=== PATIENT | female | born 1960 | race Caucasian/White ===

== ENCOUNTER 2023-08-30 07:47 | Outpatient (OUT) | payer OTHER, SELFPAY ==
[2023-08-30 08:22] LABS: Anion Gap 13.1; BUN Creatinine Ratio 25.3; Calcium 8.9 mg/dL (8.5-10.1); Carbon Dioxide 27.9 mmol/L (21.0-32.0); Chloride 104 mmol/L (98-107); Estimated GFR (African America >60 (>=60); Estimated GFR (Non-African Ame 57 (>=60); Glucose 272 mg/dL (74-106); Sodium 141 mmol/L (136-145)
[2023-08-30 08:41] LABS: Estimated Average Glucose 177 mg/dL; Glycohemoglobin A1C 7.8 % (4.5-6.2)
== END 2023-08-30 07:48 | disposition home or self-care (01) ==
LOC: LAB 07:47
PROVIDERS: PCP Family Medicine; Visit Provider Family Medicine
DX: E11.65 Type 2 diabetes mellitus with hyperglycemia (principal); E55.9 Vitamin D deficiency, unspecified
CPT/HCPCS: 36415; 80048; 82306; 83036

== ENCOUNTER 2023-10-12 08:16 | Outpatient (OUT) | payer OTHER, SELFPAY ==
--- NOTE | 2023-10-12 09:20 | CA_ITS ---
Patient Name Site Name GEOVANI HEARD [facility] Account No Medical Record Number Age Sex Date Time [id number] [facility]:[id number] F 10/12/2023 08:31 At the Request Of [facility] ECHOCARDIOGRAM REPORT PROCEDURE: CA ECHO DOPPLER COMPLETE INDICATIONS: Bradycardia, hypertension, palpitations COMPARISON: None. DESCRIPTION: COMPLETE ECHOCARDIOGRAM Real-time transthoracic echocardiography with 2D, M-mode, spectral and color flow Doppler performed. QUALITY: Technical quality was good. 64 , 159#, BSA 1.77 m2 LEFT VENTRICLE: Normal chamber size. Mild concentric left ventricular hypertrophy. Normal systolic function. LV EF: Normal left ventricular ejection fraction, (>55%). DIASTOLIC: Normal diastolic function. ATRIAL SEPTUM: Visually appears intact. LEFT ATRIUM: Normal chamber size. RIGHT ATRIUM: Normal chamber size. RIGHT VENTRICLE: Normal chamber size. Normal right ventricular systolic function. TRICUSPID VALVE: Normal mobility and thickness. No stenosis with trivial regurgitation. Doppler studies reveal mildly (35-45) elevated right sided pressures. RVSP 35 mmHg MITRAL VALVE: Normal mobility and thickness. No evidence of mitral valve stenosis. There is no mitral annular calcification. Mild mitral regurgitation. AORTIC VALVE: Normal trileaflet appearance. No visible sclerosis. Normal leaflet mobility. No evidence of aortic valve stenosis. No aortic regurgitation. AORTIC ROOT: Normal diameter and appearance. PULMONIC VALVE: Normal thickness and mobility. No stenosis. Trivial regurgitation. PERICARDIUM: No evidence of pericardial effusion. IVC: Collapses with inspirations. IVC is normal in size. PLEURA: CONCLUSION: 1. Mild concentric left ventricular hypertrophy with normal systolic function. LVEF is 55 to 60%. 2. Normal right ventricular size and systolic function. 3. Normal diastolic function. 4. No significant valvular dysfunction. 5. Mildly elevated right-sided pressures. Adult Echocardiography Procedure Report Left Ventricle LVEDD (3.7 - 5.6 cm): 4.40 cm LVESD (2.2 - 4.0 cm): 2.99 cm LVIVS thickness (0.6 - 1.2 cm): 1.11 cm LVPW thickness (0.5 - 1.0 cm): 1.17 cm e': 0.10 m/s E - e': 8.57 LVOT Max Gradient: 1.59 mm[Hg] LVOT Area (cm2): 0.63 m/s Peak Velocity (LVOT): 0.63 m/s Mean Velocity (LVOT): 0.49 m/s LVOT Diameter 1.85 cm Left Atrium LA Volume Index (2D A2C): 36.91 ml/m2 Left Atrium Systolic Dimension: 4.07 cm Mitral Valve MV E to A Ratio: 1.16 Mitral Valve A-Wave Peak Velocity: 0.76 m/s Mitral Valve E-Wave Peak Velocity: 0.88 m/s Right Ventricle Aorta AO Root Diam: 3.05 cm Ascending Ao Diam: 2.56 cm Aortic Valve AoV Area (Peak Garret): 1.15 cm2, 1.15 cm2 AoV Area (VTI): 1.19 cm2, 1.19 cm2 Peak Velocity(Antegrade Flow): 1.48 m/s Peak Gradient(Antegrade Flow): 8.71 mm[Hg] Mean Velocity(Antegrade Flow): 1.03 m/s Mean Gradient(Antegrade Flow): 4.80 mm[Hg] Velocity Time Integral: 43.32 cm Tricuspid Valve Peak Velocity (Regurgitant Flow): 2.82 m/s Pulmonic Valve Peak Velocity: 0.93 m/s Peak Gradient: 3.09 mm[Hg], 3.90 mm[Hg] Right Atrium Right Atrium Systolic Pressure: 28.69 ml, 28.69 ml Dictated by: Brian Durham M.D. on 10/12/2023 at 20:16 Approved by: Brian Durham M.D. on 10/12/2023 at 20:19
--- NOTE | 2023-10-15 | PCN_ITS ---
CARDIAC STRESS TEST Requesting Physician: Procedure Date: 10/15/2023 INDICATION: Palpitations. Bradycardia. METHODS: After risks, benefits and alternatives were explained, written informed consent was obtained. The patient was brought to the Stress Lab is a resting and fasting state. She underwent a Jim protocol for exercise. She exercised for 7 minutes and 29 seconds, reaching stage 3 of the Jim protocol or 10.1 METS. Cardiolite was administered at peak exercise. She was transferred to the Nuclear Lab at the completion of stress testing for nuclear imaging. There were no complications. STRESS TEST INFORMATION: The patient exercised for 7 minutes and 29 seconds, reaching stage 3 of the Jim protocol or 10.1 METS. Resting heart rate was 40 beats per minute, increasing to a maximum of 123 beats per minute. Resting blood pressure was 148/78 with a maximum of 196/84. ELECTROCARDIOGRAPHY: Rest EKG: Sinus bradycardia, 49 beats per minute, abnormal resting EKG. During Exercise and Recovery: There are horizontal ST depressions seen in leads 2, 3, AVF, V4, V5 and V6, suggestive of ischemia. These returned to normal after completion of exercise. No significant arrhythmias were seen. FINAL IMPRESSIONS: 1. Ischemic EKG changes seen in the inferolateral leads, suggestive of ischemia. 2. Mcnamara treadmill score is 2.3; estimated one year mortality is 1-1.1%. Risk category is moderate risk. Angiography may be indicated. 3. Nuclear images are to be read, interpreted and reported in a separate dictation. [facility]
== END 2023-10-12 08:17 | disposition home or self-care (01) ==
LOC: CARD 08:16
PROVIDERS: PCP Family Medicine; Visit Provider Nurse Practitioner
DX: R00.1 Bradycardia, unspecified (principal); I10 Essential (primary) hypertension; E78.2 Mixed hyperlipidemia; R00.2 Palpitations
CPT/HCPCS: 93306

== ENCOUNTER 2023-10-12 08:18 | Outpatient (OUT) | payer OTHER, SELFPAY ==
--- NOTE | 2023-10-12 08:10 | NM_ITS ---
Patient Name: GEOVANI HEARD MR#: [id number] : 1960 Exam Date: 10/12/2023 Ordering Doctor: DR Sarah Orosco M.D. RADIOLOGY REPORT PROCEDURE: NM TJ PERF SPECT REST STR COMPARISON: None. INDICATIONS: CHEST PAIN TECHNIQUE: Exam Description: Stress/Rest one day protocol gated SPECT Rest Imagin.1 mCi Tc-99m Cardiolite IV on 10/12/2023 Stress Imaging 30.5 mCi Tc-99m Cardiolite IV on 10/12/2023 Exercise Protocol: Jim Heart Rate (bpm): Rest: 48 Max: 134 PMHR: 85 Blood Pressure: Rest: 140/78 Max: 196/84 Exercise Time: Minutes: 7 Seconds: 29 Stage Reached: Stage: 3 Mets 10.1 Symptoms: Rest and peak stress ECG findings were pending and the exercise portion of the study was pending per attending physician Dr. STEPHENS . For more details please see separate cardiac stress test report. FINDINGS: QUALITY OF STUDY: Excellent. PERFUSION DEFECT: None. LOCATION: N/A SIZE: N/A. SEVERITY: N/A. TYPE: N/A. WALL MOTION: Normal. LV SIZE: Normal. 73 mL. TID / TCD: None; 1.1 LVEF: Normal. Calculated EF 75%. SUMMARY: Myocardial perfusion imaging study is NORMAL. CONCLUSION: 1. No reversible ischemia 2. Pending exercise test results Dictated by: Bonilla Ritchie MD on 10/12/2023 at 12:35 Approved by: Bonilla Ritchie MD on 10/12/2023 at 12:38
== END 2023-10-12 08:19 | disposition home or self-care (01) ==
LOC: NM 08:18
PROVIDERS: PCP Family Medicine; Visit Provider Family Medicine
DX: R00.1 Bradycardia, unspecified (principal); I10 Essential (primary) hypertension; E78.2 Mixed hyperlipidemia; R00.2 Palpitations; R07.89 Other chest pain
CPT/HCPCS: 78452; 93017; 93306; A9500

== ENCOUNTER 2024-01-09 06:50 | Outpatient (OUT) | payer OTHER, SELFPAY ==
--- OUTSIDE RECORDS SUMMARY | 2024-01-09 06:53 | XMS_ITS | CCD ---
Author Organization [facility] Care Team Providers Care Rigger Chief Name Role Phone PHYSICIAN, DEFAULT Unavailable Unavailable PHYSICIAN, DEFAULT Unavailable Unavailable PHYSICIAN, DEFAULT Unavailable Unavailable PHYSICIAN, DEFAULT Unavailable Unavailable MD Sarah Jansen Attending Provider [phone] Sarah Jansen Unavailable Sarah Jansen Attending Unavailable Ana Luisa, Sarah Luque Admitting Unavailable NO FAMILY, PHYSICIAN Primary Care Unavailable JANSEN, DR SARAH Luque Primary Care Unavailable JANSEN, DR SARAH Luque Admitting Unavailable JANSEN, DR SARAH Luque Attending Unavailable JANSEN, DR SARAH Luque Consulting Unavailable JANSEN, DR SARAH Luque Primary Care Unavailable JANSEN, DR SARAH Luque Admitting Unavailable JANSEN, DR SARAH Luque Attending Unavailable JANSEN, DR SARAH Luque Consulting Unavailable JANSEN, DR SARAH Luque Primary Care Unavailable JANSEN, DR SARAH Luque Admitting Unavailable JANSEN, DR SARAH Luque Attending Unavailable JEWELL FARMER V Consulting Unavailable JANSEN, DR SARAH Luque Primary Care Unavailable JANSEN, DR SARAH Luque Admitting Unavailable JANSEN, DR SARAH Luque Attending Unavailable JANSEN, DR SARAH Luque Consulting Unavailable JANSEN, DR SARAH Luque Primary Care Unavailable FLAKITA, DR NIDHI Lewis Consulting Unavailable JANSEN, DR SARAH Luque Admitting Unavailable JANSEN, DR SARAH Luque Attending Unavailable JANSEN, DR SARAH Luque Consulting Unavailable Eliza Galan Unavailable [phone] JENNAPAT Attending Unavailable JENNA, PAT Attending Unavailable JENNA, PAT Attending Unavailable Allergies Allergy Classification Reported Allergen(s) Allergy Type Date of Onset Reaction(s) Facility (10 sources) levoFLOXacin Drug Allergy Unknown [facility] Other (7 sources) Penicillins (Antibiotic) Propensity to adverse reactions Unknown [facility] Other (11 sources) Sulfamethoxazole Drug Allergy 12-18-19 Unknown, [facility] (3 sources) Penicillins; Translations: [PENICILLINS] Drug allergy (disorder) 03-10-20 13 Hives [facility] (1 source) Sulfonamides (Antibiotic) Drug allergy (disorder) [facility] (8 sources) Penicillin Drug Allergy 06-20-20 13 Unknown [facility] Other (5 sources) Substance with penicillin structure and antibacterial mechanism of action (substance) Drug allergy Unknown [facility] Other (5 sources) patient allergy list reviewed by nurse or physicia Propensity to adverse reactions 12-09-19 14 Comment:Done [facility] Other (5 sources) Allergies Reconciled Propensity to adverse reactions Unknown [facility] Other (1 source) levoFLOXacin Drug Allergy 12-18-19 24 [facility] Medications Current Medications Medication Drug Class(es) Dates Sig (Normalized) Sig (Original) atorvastatin 10 mg oral tablet (20 sources) HMG-CoA Reductase Inhibitor Start: 12-17-2023 take 10 mg by mouth once daily Atorvastatin Active 10 MG PO Daily December 17, 2023 12:00am take 1 tablet by mouth every twe nty-four hours Contour Next Test - (8 sources) Contour Next Renea t - USE TO TEST ONCE A DAY for 90 days Active docusate sodium 100 mg oral capsule (10 sources) take 1 capsule by mouth every eight hours escitalopram 10 mg oral tablet (8 sources) Serotonin Reuptake Inhibitor Start: take 1 tablet by mouth once daily Escitalopram Oxalate (Lexapro) 10 mg tablet Active 10 MG PO Daily December 18, 2023 12:00am Start: 08-21-2023 take 1 tablet by dayanara th every twenty-four hours Escitalopram Oxalate 10 MG 1 tablet Orally Once a day for 30 day(s) Aug, Active fenofibrate 145 mg oral tablet (14 sources) Peroxisome Proliferator Receptor alpha Agonist Start: 12-17-2023 take 145 mg by mouth once daily Fenofibrate Nanocrystallized Active 145 MG PO Daily December 17, 2023 12:00am take 1 tablet by mouth once germaine y Fenofibrate 145 MG TAKE 1 TABLET BY MOUTH EVERY DAY for 90 Active glipiZIDE 2.5 mg oral tablet (11 sources) Sulfonylurea Start: 12-17-2023 take 2.5 mg by mouth once daily Glipizide Active 2.5 MG PO Daily December 17, 2023 12:00am take 1 tablet by mouth once germaine y glipiZIDE ER 2.5 MG TAKE 1 TABLET BY MOUTH EVERY DAY for 90 Active Hair Skin Nails (10 sources) losartan potassium 50 mg oral tablet (11 sources) Angiotensin 2 Receptor Noel Start: 12-17-2023 take 50 mg by mouth once daily Losartan Active 50 MG PO Daily December 17, 2023 12:00am take 1 tablet by dayanara th every twenty-four hours Losartan Potassium 50 MG 1 tablet Orally Once a day Active psyllium 400 mg oral capsule (10 sources) Metamucil 0.36 G M as directed Orally Active Metamucil 0.36 G M as directed Orally Active Vit D2 400IU (10 sources) take 1 tablet by dayanara th once daily Vit D2 400IU 1 tab 1000 u orally once daily Active Vit E-Vit C-Beta Carotene [phone] (10 sources) take 200-250 tablets by mouth once daily Vit E-Vit C-Beta Carotene [phone] 1 tablet Orally Once a day Active Completed/Discontinued Medications Medication Drug Class(es) Dates Sig (Normalized) Sig (Original) ferrous sulfate 325 mg oral tablet (3 sources) Start: 02-24-2019 take 1 tablet by mouth every twenty-four hours Ferrous Sulfate 325 (65 Fe) MG 1 tablet Orally Once a day for 30 day(s) Feb, Not-Taking Start: 02-24-2019 take 1 tablet by dayanara th once daily Ferrous Sulfate 325 (65 Fe) MG 1 tablet Orally Once a day for 30 day(s) Feb, Not-Taking FLUoxetine 20 mg oral capsule (3 sources) Serotonin Reuptake Inhibitor take 1 capsule by mouth every twenty-four hours FLUoxetine HCl 20 MG 1 capsule Orally Once a day Not-Taking nitrofurantoin, macrocrystals 25 mg / nitrofurantoin, monohydrate 75 mg oral capsule (3 sources) Nitrofuran Antibacterial take 1 capsule by mouth every twelve hours Macrobid 100 MG 1 capsule with food Orally every 12 hrs Not-Taking Vitamin D (Cholecalciferol) 400 UNIT (3 sources) take 1 capsule by mouth once daily Vitamin D (Cholecalciferol) 400 UNIT 1 capsules Orally Once a day Not-Taking Vitamin E 400 UNIT (3 sources) take 2 capsules by mouth once daily Vitamin E 400 UNIT 2 capsules orally Daily Not-Taking Problems Active Problems Problem Classification Problem Date Documented Date Episodic/Chronic Abdominal pain (20 sources) Pain in female pelvis; Translations: [Pelvic and perineal pain] Onset: 01-17-2016 Episodic Anxiety disorders (10 sources) Anxiety; Translations: [Anxiety disorder, unspecified] Chronic Calculus of urinary tract (20 sources) Kidney stone; Translations: [Calculus of kidney] Onset: 07-07-2022 Episodic Cardiac dysrhythmias (20 sources) Bradycardia; Translations: [Bradycardia, unspecified] Onset: 02-07-2023 Episodic Chronic obstructive pulmonary disease and bronchiectasis (8 sources) Bronchitis; Translations: [Bronchitis, not specified as acute or chronic] Episodic Deficiency and other anemia (20 sources) Iron deficiency anemia; Translations: [Iron deficiency anemia, unspecified] 12-17-2023 Episodic Deficiency and other anemia (1 source) Iron deficiency anemia secondary to inadequate dietary iron intake; Translations: [Other iron deficiency anemias] 12-17-2023 Episodic Diabetes mellitus with complications (20 sources) Hyperglycemia due to type 2 diabetes mellitus; Translations: [Type 2 diabetes mellitus with hyperglycemia] Onset: 07-12-2022 Chronic Diabetes mellitus without complication (8 sources) Type 2 diabetes mellitus without complication; Translations: [Diabetes mellitus without mention of complication, type II or unspecified type, not stated as uncontrolled] Onset: 10-12-2014 Chronic Disorders of lipid metabolism (20 sources) Mixed hyperlipidemia; Translations: [Mixed hyperlipidemia] Onset: 07-15-2015 Chronic Essential hypertension (20 sources) Essential hypertension; Translations: [Essential (primary) hypertension] Onset: 10-30-2014 Chronic Genitourinary symptoms and ill-defined conditions (8 sources) Dysuria; Translations: [Dysuria] Episodic Hepatitis (11 sources) Nonalcoholic steatohepatitis; Translations: [Nonalcoholic steatohepatitis (SAINI)] 12-17-2023 Chronic Malaise and fatigue (20 sources) Fatigue; Translations: [Other fatigue] Episodic Mood disorders (20 sources) Chronic depression; Translations: [Major depressive disorder, single episode, unspecified] 12-17-2023 Chronic Nonspecific chest pain (19 sources) Chest pain; Translations: [Other chest pain] Onset: 07-11-2018 Episodic Nutritional deficiencies (20 sources) Vitamin D deficiency; Translations: [Vitamin D deficiency, unspecified] Onset: 11-17-2015 Chronic Other circulatory disease (8 sources) Elevated blood-pressure reading without diagnosis of hypertension; Translations: [Elevated blood-pressure reading, without diagnosis of hypertension] Episodic Other connective tissue disease (18 sources) Pain in limb; Translations: [Pain in left forearm] Episodic Other liver diseases (10 sources) Steatosis of liver; Translations: [Fatty (change of) liver, not elsewhere classified] Chronic Other lower respiratory disease (2 sources) Other forms of dyspnea; Translations: [Other forms of dyspnea] Onset: 09-12-2023 Episodic Other nervous system disorders (10 sources) Metallic taste; Translations: [Other disturbances of smell and taste] Episodic Other nervous system disorders (8 sources) Sensory disorder of smell and/or taste; Translations: [Other disturbances of smell and taste] Episodic Other non-traumatic joint disorders (20 sources) Arthralgia of the pelvic region and thigh; Translations: [Pain in left hip] Onset: 07-14-2014 Episodic Other nutritional; endocrine; and metabolic disorders (18 sources) Body mass index 25-29 - overweight; Translations: [Body mass index (BMI) 29.0-29.9, adult] Episodic Other screening for suspected conditions (not mental disorders or infectious disease) (20 sources) Elevated liver enzymes level; Translations: [Other specified abnormal findings of blood chemistry] Onset: 09-01-2016 Episodic Other upper respiratory infections (20 sources) Acute pharyngitis; Translations: [Acute pharyngitis due to other specified organisms] Onset: 02-06-2019 Episodic Residual codes; unclassified (1 source) Family history of malignant neoplasm of digestive organs; Translations: [FAM HX MALIG NEOPLASM DIGESTIV ORGN] Onset: 01-04-2023 Episodic Residual codes; unclassified (1 source) Family history of malignant neoplasm of other organs or systems; Translations: [FAM HX MALIG NEOPLASM OTH ORGN/SYS] Onset: 01-04-2023 Episodic Spondylosis; intervertebral disc disorders; other back problems (9 sources) Low back pain; Translations: [Low back pain, unspecified] 12-17-2023 Episodic Unclassified (1 source) Encounter for screening for malignant neoplasm of cervix; Translations: [Encounter for screening for malignant neoplasm of cervix] Onset: 12-04-2022 Unclassified (8 sources) Exposure to acute respiratory syndrome coronavirus 2; Translations: [Contact with and (suspected) exposure to COVID-19] Past or Other Problems Problem Classification Problem Date Documented Da te Episodic/Chronic Acute bronchitis (8 sources) Acute bronchitis; Translations: [Acute bronchitis, unspecified] Onset: 12-03-2015 Episodic Deficiency and other anemia (1 source) Other iron deficiency anemias; Translations: [OTHER IRON DEFICIENCY ANEMIAS] Onset: 07-12-2022 Episodic Deficiency and other anemia (8 sources) Anemia; Translations: [Anemia, unspecified] Onset: 11-15-2018 Episodic Diabetes mellitus without complication (8 sources) Hyperglycemia; Translations: [Hyperglycemia, unspecified] Onset: 09-12-2014 Episodic Other female genital disorders (8 sources) Other specified conditions associated with female genital organs and menstrual cycle; Translations: [Oth cond assoc w female genital organs and menstrual cycle] Onset: 07-15-2015 Episodic Other gastrointestinal disorders (8 sources) Diarrhea; Translations: [Diarrhea] Onset: 01-17-2016 Episodic Residual codes; unclassified (8 sources) Family history of stroke; Translations: [Family history of stroke] Onset: 12-08-2013 Episodic Residual codes; unclassified (8 sources) Family history of diabetes mellitus; Translations: [Family history of diabetes mellitus] Onset: 12-08-2013 Episodic Residual codes; unclassified (8 sources) Family history of mental disorder; Translations: [Family history of psychiatric condition] Onset: 12-08-2013 Episodic Unclassified (8 sources) Urine finding; Translations: [Other nonspecific finding on examination of urine] Onset: 09-01-2016 Viral infection (1 source) COVID-19 Results Test Name Value Interpretation Reference Range Facility Office Visiton 10-31-2023 Follow-up visit [id number] Kasey Sanchez 1960 F Date Provider Department Center 10/31/2023 [facility] Family History Problem Relation Age of Onset Stroke Mother Hyperlipidemia Mother Aortic aneurysm Father Family Status - Relation Status Age at Mother Father Level of Service:42665 HI OFFICE/OUTPATIENT ESTABLISHED MOD MDM 30 MIN Normal [facility] Office Visiton 09-12-2023 Follow-up visit [id number] Kasey aSnchez 1960 F Date Provider Department Center 09/12/2023 [facility] Family History Problem Relation Age of Onset Stroke Mother Hyperlipidemia Mother Aortic aneurysm Father Family Status - Relation Status Age at Mother Father Level of Service:87803 HI OFFICE/OUTPATIENT ESTABLISHED MOD MDM 30 MIN Normal [facility] Office Visiton 02-07-2023 Follow-up visit [id number] Kasey Sanchez 1960 F Date Provider Department Center 02/07/2023 [facility] Family History Problem Relation Age of Onset Stroke Mother Hyperlipidemia Mother Aortic aneurysm Father Family Status - Relation Status Age at Mother Father Level of Service:81126 HI OFFICE/OUTPATIENT ESTABLISHED LOW MDM 20-29 MIN Reason for Visit and Comments: Hyperlipidemia [182] SVT [Other] Normal [facility] MG MAMM SCREEN 3D TITI CADon 12-29-2022 MG MAMM SCREEN 3D TITI CAD Patient: KASEY SANCHEZ Exam Date: 12/29/2022 : 1960 Gender:F Ordering : DR SARAH JANSEN M.D. Admission #: [id number] Family : Order #: [id number] CLICK HERE TO VIEW EXAM RADIOLOGY REPORT PROCEDURE: MAMMOGRAM SCREENING 3D BILATERAL CAD COMPARISON: MG MAMM SCREEN 3D TITI CAD, 12/10/2020. MG MAMM SCREEN 3D TITI CAD, 12/26/2021. INDICATIONS: Screening mammography Calculator Name NCI Breast Cancer Risk Assessment Tool 5 Year Breast Cancer Risk 2.10% Lifetime Breast Cancer Risk 9.40% Personal Breast Cancer No Personal Ovarian Cancer No Treatments None Family Cancers Mother with colon cancer at age 90; Aunt-maternal with esohagus cancer at age 86; Father with bone cancer at age 72; Uncle-paternal with bone cancer at age 80. LOCATION: [facility] BREAST COMPOSITION: Heterogeneously dense,which may obscure small masses. FINDINGS: DIAGNOSTIC CATEGORY 1--NEGATIVE. NO CHANGE FROM COMPARISON ASSESSMENT. Scattered benign-appearing nodules are present. Scattered benign-appearing calcifications are present. Scattered benign-appearing lymph nodes are present. RIGHT BREAST: No significant suspicious finding. LEFT BREAST: No significant suspicious finding. RECOMMENDATIONS: ROUTINE MAMMOGRAM AND CLINICAL EVALUATION IN 12 MONTHS. PLEASE NOTE: A NORMAL MAMMOGRAM DOES NOT EXCLUDE THE POSSIBILITY OF BREAST CANCER. A CLINICALLY SUSPICIOUS PALPABLE LUMP SHOULD BE BIOPSIED. Dictated by: Jewell Farmer MD on 01/01/2023 at 09:49 Approved by: Jewell Farmer MD on 01/01/2023 at 09:51 Normal [facility] CBC AUTO DIFFon 12-08-2022 BASO # 0.1 103/ul Normal 0.0-0.1 [facility] Comment on above: Performed By: #### C BC #### [facility] [address] [place] [address] Dr. Dony Munoz Basophils/100 WBC (Bld) 0.9 % Normal 0.2-2.0 [facility] Comment on above: Performed By: #### C BC #### [facility] [address] [place] [address] Dr. Dony Munoz EO # 0.1 103/ul Normal 0.0-0.7 [facility] Comment on above: Performed By: #### C BC #### [facility] [address] [place] [address] Dr. Dony Munoz Eosinophils/100 WBC (Bld) 1.9 % Normal 0.9-7.0 [facility] Comment on above: Performed By: #### C BC #### [facility] [address] [place] [address] Dr. Dony Munoz Erythrocyte distribution width (RBC) [Ratio] 13.0 % Normal 11.0-15.0 [facility] Comment on above: Performed By: #### C BC #### [facility] [address] [place] [address] Dr. Dony Munoz Hematocrit (Bld) [Volume fraction] 35.5 % Critically low 36.0-48.0 [facility] Comment on above: Performed By: #### C BC #### [facility] [address] [place] [address] Dr. Dony Munoz Hemoglobin (Bld) [Mass/Vol] 11.7 g/dL Critically low 12.0-16.0 [facility] Comment on above: Performed By: #### C BC #### [facility] [address] [address] [address] Dony Munoz IG # 0.04 10e3/ul Critically high 0.00-0.03 [facility] Comment on above: Performed By: #### C BC #### [facility] [address] [address] [address] Dony Munoz IG % 0.6 % Critically high 0.0-0.5 [facility] Comment on above: Performed By: #### C BC #### [facility] [address] [place] [address] Dr. Dony Munoz LYMPH # 1.8 103/ul Normal 1.2-3.8 [facility] Comment on above: Performed By: #### C BC #### [facility] [address] [place] [address] Dr. Dony Munoz Lymphocytes/100 WBC (Bld) 27.2 % Normal 20.5-60.0 [facility] Comment on above: Performed By: #### C BC #### [facility] [address] [place] [address] Dr. Dony Munoz MANUAL DIFF REQ NO Normal [facility] Comment on above: Performed By: #### C BC #### [facility] [address] [place] [address] Dr. Dony Munoz MCH (RBC) [Entitic mass] 29.5 pg Normal 26.7-34.0 [facility] Comment on above: Performed By: #### C BC #### [facility] [address] [place] [address] Dr. Dony Munoz MCHC (RBC) [Mass/Vol] 33.0 g/dL Normal 29.9-35.2 [facility] Comment on above: Performed By: #### C BC #### [facility] [address] [place] [address] Dr. Dony Munoz MCV (RBC) [Entitic vol] 89.6 fL Normal 81.0-99.0 [facility] Comment on above: Performed By: #### C BC #### [facility] [address] [address] [address] Dony Munoz MONO # 0.6 103/ul Normal 0.3-0.8 [facility] Comment on above: Performed By: #### C BC #### [facility] [address] [place] [address] Dr. Dony Munoz Monocytes/100 WBC (Bld) 8.3 % Normal 1.7-12.0 [facility] Comment on above: Performed By: #### C BC #### [facility] [address] [place] [address] Dr. Dony Munoz NEUT # 4.1 103/ul Normal 1.4-6.5 [facility] Comment on above: Performed By: #### C BC #### [facility] [address] [place] [address] Dr. Dony Munoz Neutrophils/100 WBC (Bld) 61.1 % Normal 43.0-75.0 [facility] Comment on above: Performed By: #### C BC #### [facility] [address] [place] [address] Dr. Dony Munoz Platelet mean volume (Bld) [Entitic vol] 9.9 fL Normal 9.5-13.5 [facility] Comment on above: Performed By: #### C BC #### [facility] [address] [place] [address] Dr. Dony Munoz PLT 248 103/ul Normal 150-450 [facility] Comment on above: Performed By: #### C BC #### [facility] [address] [place] [address] Dr. Dony Munoz RBC 3.96 106/ul Critically low 4.20-5.40 [facility] Comment on above: Performed By: #### C BC #### [facility] [address] [place] [address] Dr. Dony Munoz WBC 6.8 103/ul Normal 4.0-11.0 [facility] Comment on above: Performed By: #### C BC #### [facility] [address] [place] [address] Dr. Dony Munoz GLYCOHEMOGLOBIN A1Con 2022 ADA RECOMMENDATION SEE BELOW Normal [facility] Comment on above: Result Comment: ADA RECOMMENDED LIMIT 4.0 - 6.0 ADA THERAPEUTIC TARGET < 7.0 ACTION SUGGESTED > 7.0 Performed By: #### A 1C #### [facility] [address] [address] [address] Dony Munoz Glucose [Mass/Vol] 151 mg/dL Normal [facility] Comment on above: Performed By: #### A 1C #### [facility] [address] [address] [address] Dony Munoz HbA1c (Bld) [Mass fraction] 6.9 % Critically high 4.5-6.2 [facility] Comment on above: Performed By: #### A 1C #### [facility] [address] [place] [address] Dr. Dony Munoz LIPID PROFILEon 12-08-2022 CHOL-HDL RATIO NORM SEE BELOW Normal [facility] Comment on above: Result Comment: 3.3 - 4.4 LOW RISK 4.4 - 7.1 AVERAGE RISK 7.1 - 11.0 MODERATE RISK >11.0 HIGH RISK Performed By: #### C MP, LIPID #### [facility] [address] [place] [address] Dr. Dony Munoz Cholesterol [Mass/Vol] 172 mg/dL Normal <=200 [facility] Comment on above: Performed By: #### C MP, LIPID #### [facility] [address] [place] [address] Dr. Dony Munoz Cholesterol in HDL [Mass/Vol] 47 mg/dL Normal 40-60 [facility] Comment on above: Performed By: #### C MP, LIPID #### [facility] [address] [address] [address] Dony Munoz Cholesterol in LDL [Mass/Vol] 104.2 mg/dL Normal [facility] Comment on above: Performed By: #### C MP, LIPID #### [facility] [address] [place] [address] Dr. Dony Munoz Cholesterol.total/Ch olesterol in HDL [Mass ratio] 3.7 {ratio} Normal [facility] Comment on above: Performed By: #### C MP, LIPID #### [facility] [address] [address] [address] Dony Munoz HDL NORMAL > or = 60 mg/dl - LO W CARDIOVASCULAR RISK <40 mg/dl - HIGH CARDIOVASCULAR RISK Normal [facility] Comment on above: Performed By: #### C MP, LIPID #### [facility] [address] [address] [address] Dony Munoz LDL CALC NORMAL SEE BELOW Normal [facility] Comment on above: Result Comment: <100 mg/dl OPTIMAL 100 - 129 mg/dl NEAR OR ABOVE OPTIMAL 130 - 159 mg/dl BORDERLINE HIGH 160 - 189 mg/dl HIGH >190 mg/dl VERY HIGH Performed By: #### C MP, LIPID #### [facility] [address] [address] [address] Dony Munoz Triglyceride [Mass/Vol] 104 mg/dL Normal <=150 [facility] Comment on above: Performed By: #### C MP, LIPID #### [facility] [address] [address] [address] Dony Munoz VLDL CALC 20.8 mg/dL Normal [facility] Comment on above: Performed By: #### C MP, LIPID #### [facility] [address] [address] [address] Dony Munoz PROF 14(COMP METB)on 023 Albumin [Mass/Vol] 4.1 g/dL Normal 3.4-5.0 [facility] Comment on above: Performed By: #### C MP, LIPID ####[facility] [id number] [id number]. Dony Munoz Albumin/Globulin [Mass ratio] 1.2 {ratio} Normal [facility] Comment on above: Performed By: #### C MP, LIPID ####[facility] [id number] [id number]. Dony Munoz ALP [Catalytic activity/Vol] 58 U/L Normal 46-116 [facility] Comment on above: Performed By: #### C MP, LIPID ####[facility] [id number] [id number]. Dony Munoz ALT [Catalytic activity/Vol] 125 U/L Critically high 14-59 [facility] Comment on above: Performed By: #### C MP, LIPID ####[facility] [id number] [id number]. Dony Munoz Anion gap [Moles/Vol] 12.3 mmol/L Normal [facility] Comment on above: Performed By: #### C MP, LIPID ####[facility] [id number] [id number]. Dony Munoz AST [Catalytic activity/Vol] 75 U/L Critically high 15-37 [facility] Comment on above: Performed By: #### C MP, LIPID ####[facility] [id number] [id number]. Dony Munoz Bilirubin [Mass/Vol] 0.5 mg/dL Normal 0.2-1.0 [facility] Comment on above: Performed By: #### C MP, LIPID ####[facility] [id number] [place] [address]Dr. Dony Munoz Calcium [Mass/Vol] 9.7 mg/dL Normal 8.5-10.1 [facility] Comment on above: Performed By: #### C MP, LIPID ####[facility] [address] [place] [address]Dr. Dony Munoz Chloride [Moles/Vol] 105 mmol/L Normal 98-107 [facility] Comment on above: Performed By: #### C MP, LIPID ####[facility] [address] [place] [id number]. Dony Munoz CO2 [Moles/Vol] 27.9 mmol/L Normal 21.0-32.0 [facility] Comment on above: Performed By: #### C MP, LIPID ####[facility] [address] [place] [id number]. Dony Munoz Creatinine [Mass/Vol] 0.93 mg/dL Normal 0.55-1.02 [facility] Comment on above: Performed By: #### C MP, LIPID ####[facility] [address] [place] [id number]. Dony Munoz EGFR-AF NAMIBIAN >60 Normal >=60 [facility] Comment on above: Performed By: #### C MP, LIPID ####[facility] [address] [place] [id number]. Dony Munoz EGFR-NON AF NAMIBIAN >60 Normal >=60 [facility] Comment on above: Performed By: #### C MP, LIPID ####[facility] [address] [place] [id number]. Dony Munoz Globulin (S) [Mass/Vol] 3.5 g/dL Normal [facility] Comment on above: Performed By: #### C MP, LIPID ####[facility] [address] [place] [address]Dr. Dony Munoz Glucose [Mass/Vol] 163 mg/dL Critically high 74-106 [facility] Comment on above: Performed By: #### C MP, LIPID ####[facility] [address] [place] [id number]. Dony Munoz Potassium [Moles/Vol] 4.2 mmol/L Normal 3.5-5.1 [facility] Comment on above: Performed By: #### C MP, LIPID ####[facility] [address] [place] [id number]. Dony Munoz Protein [Mass/Vol] 7.6 g/dL Normal 6.4-8.2 [facility] Comment on above: Performed By: #### C MP, LIPID ####[facility] [address] [place] [address]Dr. Dony Munoz Sodium [Moles/Vol] 141 mmol/L Normal 136-145 [facility] Comment on above: Performed By: #### C MP, LIPID ####[facility] [address] [place] [id number]. Dony Munoz Urea nitrogen [Mass/Vol] 23.0 mg/dL Critically high 7.0-18.0 [facility] Comment on above: Performed By: #### C MP, LIPID ####[facility] [address] [place], [place] [address]Ql. Dony Munoz Urea nitrogen/Creatinine [Mass ratio] 24.7 mg/mg Normal [facility] Comment on above: Performed By: #### C MP, LIPID ####[facility] [address] [place], [place] [address]Iu. Dony Munoz IGP,Aptima HPV,Age Gdlnon PAP HPV Aptima Negative Normal Negative [facility] Comment on above: Order Comment: SASHA CTION TECHNIQUE:: BROOM-ALONE GYNOCOLOGICAL BODY SITE:: CERVIX ENDOCERVIX Result Comment: This nucleic acid amplification test detects fourteen high- risk HPV types (16,18,31,33,35,39,45,51,52,56,58,59,66,68) without differentiation. PERFORMED BY: [address] [address] PATHOLOGIST [employer] KAMLA ARCE M.D. Performed By: #### P AP [id number] #### [facility] , Pap Image Guided Note Normal . [facility] Comment on above: Order Comment: SASHA CTION TECHNIQUE:: BROOM-ALONE GYNOCOLOGICAL BODY SITE:: CERVIX ENDOCERVIX Result Comment: TEST S RESULT FLAG UNITS REF RANGE LAB Clinician Provided Cytology Information Source.............Cervix;Endocervix No. of containers..01 ThinPrep Vial Age Christinao ELIANAOG Renea... FLAG LEGEND: L-Low Normal,H-High Normal,LL-Alert Low,HH-Alert High <-Panic Low,>-Panic High,A-Abnormal,AA-Critical Abnormal Performed at: 01 =G [facility] [id number] Laura Bull MD, Performed By: #### P AP [id number] #### [facility] , Result Comment: TEST S RESULT FLAG UNITS REF RANGE LAB DIAGNOSIS: 02 NEGATIVE FOR INTRAEPITHELIAL LESION OR MALIGNANCY. CELLULAR CHANGES ASSOCIATED WITH ATROPHY ARE PRESENT. Specimen adequacy: 02 Satisfactory for evaluation. Endocervical and/or squamous metaplastic cells (endocervical component) are present. Performed by: Ha Last, Disc Inspector ([facility]) . 02 Note: Note 02 The Pap smear is a screening test designed to aid in the detection of premalignant and malignant conditions of the uterine cervix. It is not a diagnostic procedure and should not be used as the sole means of detecting cervical cancer. Both false-positive and false-negative reports do occur. Test Methodology: Note 02 This liquid based ThinPrep(R) pap test was screened with the use of an image guided system. FLAG LEGEND: L-Low Normal,H-High Normal,LL-Alert Low,HH-Alert High <-Panic Low,>-Panic High,A-Abnormal,AA-Critical Abnormal Performed at: [address] [facility] [address] [phone] Laura Bull MD, VIT D 1 25 DIHYDROXYon 07-12 Calcitriol(1,25 di-OH Vit D) 29.6 pg/mL Normal 24.8-81.5 [facility] Comment on above: Performed By: #### V [id number] #### [facility] [address] [place] [address] Dr. Dony Munoz CBC AUTO DIFFon 07-10-2022 BASO # 0.1 103/ul Normal 0.0-0.1 [facility] Comment on above: Performed By: #### C BC #### [facility] [address] [place] [address] Dr. Dony Munoz Basophils/100 WBC (Bld) 0.7 % Normal 0.2-2.0 [facility] Comment on above: Performed By: #### C BC #### [facility] [address] [place] [address] Dr. Dony Munoz EO # 0.2 103/ul Normal 0.0-0.7 [facility] Comment on above: Performed By: #### C BC #### [facility] [address] [place] [address] Dr. Dony Munoz Eosinophils/100 WBC (Bld) 2.7 % Normal 0.9-7.0 [facility] Comment on above: Performed By: #### C BC #### [facility] [address] [place] [address] Dr. Dony Munoz Erythrocyte distribution width (RBC) [Ratio] 13.2 % Normal 11.0-15.0 [facility] Comment on above: Performed By: #### C BC #### [facility] [address] [place] [address] Dr. Dony Munoz Hematocrit (Bld) [Volume fraction] 32.3 % Critically low 36.0-48.0 [facility] Comment on above: Performed By: #### C BC #### [facility] [address] [place] [address] [address] Dony Munoz Hemoglobin (Bld) [Mass/Vol] 10.4 g/dL Critically low 12.0-16.0 [facility] Comment on above: Performed By: #### C BC #### [facility] [address] [place] [address] Dr. Dony Munoz IG # 0.06 10e3/ul Critically high 0.00-0.03 [facility] Comment on above: Performed By: #### C BC #### [facility] [address] [place] [address] Dr. Dony Munoz IG % 0.8 % Critically high 0.0-0.5 [facility] Comment on above: Performed By: #### C BC #### [facility] [address] [place] [address] Dr. Dony Munoz LYMPH # 1.6 103/ul Normal 1.2-3.8 [facility] Comment on above: Performed By: #### C BC #### [facility] [address] [place] [address] Dr. Dony Munoz Lymphocytes/100 WBC (Bld) 21.4 % Normal 20.5-60.0 [facility] Comment on above: Performed By: #### C BC #### [facility] [address] [place] [address] Dr. Dony Munoz MANUAL DIFF REQ NO Normal [facility] Comment on above: Performed By: #### C BC #### [facility] [address] [place] [address] Dr. Dony Munoz MCH (RBC) [Entitic mass] 29.5 pg Normal 26.7-34.0 [facility] Comment on above: Performed By: #### C BC #### [facility] [address] [place] [address] Dr. Dony Munoz MCHC (RBC) [Mass/Vol] 32.2 g/dL Normal 29.9-35.2 [facility] Comment on above: Performed By: #### C BC #### [facility] [address] [place] [address] [address] Dony Munoz MCV (RBC) [Entitic vol] 91.5 fL Normal 81.0-99.0 [facility] Comment on above: Performed By: #### C BC #### [facility] [address] [place] [address] [address] Dony Munoz MONO # 0.8 103/ul Normal 0.3-0.8 [facility] Comment on above: Performed By: #### C BC #### [facility] [address] [place] [address] [address] Dony Munoz Monocytes/100 WBC (Bld) 10.6 % Normal 1.7-12.0 [facility] Comment on above: Performed By: #### C BC #### [facility] [address] [place] [address] [address] Dony Munoz NEUT # 4.7 103/ul Normal 1.4-6.5 [facility] Comment on above: Performed By: #### C BC #### [facility] [address] [place] [address] [address] Dony Munoz Neutrophils/100 WBC (Bld) 63.8 % Normal 43.0-75.0 [facility] Comment on above: Performed By: #### C BC #### [facility] [address] [place] [address] [address] Dony Munoz Platelet mean volume (Bld) [Entitic vol] 10.0 fL Normal 9.5-13.5 [facility] Comment on above: Performed By: #### C BC #### [facility] [address] [place] [address] [address] Dony Munoz PLT 244 103/ul Normal 150-450 [facility] Comment on above: Performed By: #### C BC #### [facility] [address] [place] [address] [address] Dony Munoz RBC 3.53 106/ul Critically low 4.20-5.40 [facility] Comment on above: Performed By: #### C BC #### [facility] [address] [place] [address] [address] Dony Munoz WBC 7.3 103/ul Normal 4.0-11.0 [facility] Comment on above: Performed By: #### C BC #### [facility] [address] [place] [address] [address] Dony Munoz FERRITINon 07-10-2022 Ferritin [Mass/Vol] 178.0 ng/mL Normal 8.0-252.0 [facility] Comment on above: Performed By: #### F ERR #### [facility] [address] [place] [address] Dr. Dony Munoz GLYCOHEMOGLOBIN A1Con 2021 ADA RECOMMENDATION SEE BELOW Normal [facility] Comment on above: Result Comment: ADA RECOMMENDED LIMIT 4.0 - 6.0 ADA THERAPEUTIC TARGET < 7.0 ACTION SUGGESTED > 7.0 Performed By: #### A 1C #### [facility] [address] [place] [address] Dr. Dony Munoz Glucose [Mass/Vol] 140 mg/dL Normal [facility] Comment on above: Performed By: #### A 1C #### [facility] [address] [place] [address] Dr. Dony Munoz HbA1c (Bld) [Mass fraction] 6.5 % Critically high 4.5-6.2 [facility] Comment on above: Performed By: #### A 1C #### [facility] [address] [place] [address] Dr. Dony Munoz LIPID PROFILEon 07-10-2022 CHOL-HDL RATIO NORM SEE BELOW Normal [facility] Comment on above: Result Comment: 3.3 - 4.4 LOW RISK 4.4 - 7.1 AVERAGE RISK 7.1 - 11.0 MODERATE RISK >11.0 HIGH RISK Performed By: #### L IPID #### [facility] [address] [place] [address] Dr. Dony Munoz Cholesterol [Mass/Vol] 174 mg/dL Normal <=200 [facility] Comment on above: Performed By: #### L IPID #### [facility] [address] [place] [address] [address] Dony Munoz Cholesterol in HDL [Mass/Vol] 47 mg/dL Normal 40-60 [facility] Comment on above: Performed By: #### L IPID #### [facility] [address] [place] [address] [address] Dony Munoz Cholesterol in LDL [Mass/Vol] 104.4 mg/dL Normal [facility] Comment on above: Performed By: #### L IPID #### [facility] [address] [place] [address] [address] Dony Munoz Cholesterol.total/Ch olesterol in HDL [Mass ratio] 3.7 {ratio} Normal [facility] Comment on above: Performed By: #### L IPID #### [facility] [address] [place] [address] Dr. Dony Munoz HDL NORMAL > or = 60 mg/dl - LO W CARDIOVASCULAR RISK <40 mg/dl - HIGH CARDIOVASCULAR RISK Normal [facility] Comment on above: Performed By: #### L IPID #### [facility] [address] [place] [address] Dr. Dony Munoz LDL CALC NORMAL SEE BELOW Normal [facility] Comment on above: Result Comment: <100 mg/dl OPTIMAL 100 - 129 mg/dl NEAR OR ABOVE OPTIMAL 130 - 159 mg/dl BORDERLINE HIGH 160 - 189 mg/dl HIGH >190 mg/dl VERY HIGH Performed By: #### L IPID #### [facility] [address] [address] [address] Dony Munoz Triglyceride [Mass/Vol] 113 mg/dL Normal <=150 [facility] Comment on above: Performed By: #### L IPID #### [facility] [address] [place] [address] [address] Dony Munoz VLDL CALC 22.6 mg/dL Normal [facility] Comment on above: Performed By: #### L IPID #### [facility] [address] [address] [address] Dony Munoz XR KUB 1 VIEWon 07-10-2022 XR KUB 1 VIEW EXAMINATION: XR KUB 1 VIEW HISTORY: Kidney stone ; bilateral lower quadrant pain COMPARISON: No relevant comparison available. FINDINGS: KIDNEY/URETER - RIGHT: No visible renal or ureteral calcifications. KIDNEY/URETER - LEFT: 2 tiny stones versus bowel content projecting over left kidney. PELVIS: No visible ureteral stones. BOWEL: No abnormal dilation or deviation. BONES: No acute abnormality. OTHER: Negative. No abnormal gaseous collections. IMPRESSION: 1. Suspect left nephrolithiasis. 2. No visible ureteral stones. Electronically authenticated by: NIDHI BOGGS Date: 2022-07-10 07:01 Normal [facility] Vital Signs Date Time Vital Sign Value Performing Clinician Facility 12-18-2023 15:34-0400 Body height 162.[address] [facility] 12-18-2023 15:34-0400 Body mass index (BMI) [Ratio] 26.9 kg/m2 [facility] 12-18-2023 15:34-0400 Body weight 71.[address] [facility] 12-18-2023 15:34-0400 Diastolic blood pressure 69 mm[Hg] [facility] 12-18-2023 15:34-0400 Heart rate 50 /min [facility] 12-18-2023 15:34-0400 Systolic blood pressure 159 mm[Hg] [facility] 08-21-2023 15:45-0500 Body height 162.56 cm Sarah Jansen Other [facility] [facility] Other 08-21-2023 15:45-0500 Body mass index (BMI) [Ratio] 27.7 kg/m2 Sarah Jansen Other [facility] Other 08-21-2023 15:45-0500 Body weight 73.21 kg Sarah Jansen Other [facility] Other 08-21-2023 15:45-0500 Diastolic blood pressure 77 mm[Hg] Sarah Jansen Other [facility] Other 08-21-2023 15:45-0500 Systolic blood pressure 143 mm[Hg] Sarah Jansen Other [facility] Other 12-04-2022 16:30-0400 Body height 162.56 cm Sarah Jansen Other [employer] Other 12-04-2022 16:30-0400 Body mass index (BMI) [Ratio] 27.46 kg/m2 Sarah Jansen Other [employer] Other 12-04-2022 16:30-0400 Body weight 72.58 kg Sarah Jansen Other [employer] Other 12-04-2022 16:30-0400 Diastolic blood pressure 82 mm[Hg] Sarah Jansen Other [employer] Other 12-04-2022 16:30-0400 SaO2% (BldA) [Mass fraction] 98 % Sarah Jansen Other [employer] Other 12-04-2022 16:30-0400 Systolic blood pressure 120 mm[Hg] Sarah Jansen Other [employer] Other Encounters Encounter Date Encounter Type Care Provider Facility Start: 12-18-2023 End: 12-18-2023 ambulatory [facility] Work Phone: Start: 12-18-2023 End: 12-18-2023 Patient encounter procedure [facility] Physician [facility] Work Phone: Start: 11-30-2023 End: 11-30-2023 ambulatory Sarah Jansen Other [employer] Other Start: 11-30-2023 Telephone encounter Sarah Jansen [facility] Start: 11-30-2023 Non-patient / Non-visit [facility] Start: 10-31-2023 ambulatory [facility] Start: 09-24-2023 End: 09-24-2023 ambulatory Sarah Jansen Other [employer] Other Start: 09-24-2023 Telephone encounter Sarah Ana Luisa [facility] Start: 09-20-2023 Patient encounter procedure [facility] Group- Start: 09-19-2023 End: 09-19-2023 ambulatory Eliza Galan Other [employer] Other Start: 09-19-2023 Office outpatient vi sit 15 minutes Eliza Galan [facility] Start: 09-18-2023 End: 09-18-2023 ambulatory Sarah Jansen Other [employer] Other Start: 09-18-2023 Telephone encounter Sarah Ana Luisa [facility] Start: 09-13-2023 End: 09-13-2023 ambulatory Sarah Ana Luisa Other [employer] Other Start: 09-13-2023 Telephone encounter Sarah Ana Luisa [facility] Start: 09-12-2023 Telephone encounter Sarah Ana Luisa [facility] Start: 09-12-2023 End: 09-12-2023 ambulatory PAT [facility]ST [employer] Other Start: 08-21-2023 End: 08-21-2023 ambulatory Sarah Ana Luisa Other [employer] Other Start: 08-21-2023 Office outpatient vi sit 25 minutes Sarah Ana Luisa [facility] Start: 07-24-2023 End: 07-24-2023 ambulatory Sarah Ana Luisa Other [employer] Other Start: 07-24-2023 Telephone encounter Sarah Ana Luisa [facility] Start: 02-07-2023 End: 02-07-2023 ambulatory [facility] Start: 12-29-2022 End: 12-30-2022 ambulatory JEWELL FARMER Facility:[facility] Start: 12-10-2022 Encounter for genera l adult medical examination without abnormal findings DR ASRAH JANSEN [facility] Start: 12-08-2022 Telephone encounter Sarah Jansen [facility] Start: 12-08-2022 End: 12-09-[address] SARAH JANSEN [employer] Other Start: 12-08-2022 End: 12-09-2022 Encounter for general adult medical examination without abnormal findings DR SARAH JANSEN Facility:[facility] Start: 12-04-2022 End: 12-04-2022 Departed Referred MD Sarah Jansen Work Phone: [facility] [place] Work Phone: Start: 12-04-2022 End: 12-04-2022 ambulatory Sarah Jansen [facility] Work Phone: Start: 12-04-2022 Encounter for genera l adult medical examination without abnormal findings Sarah Jansen [facility] Start: 12-04-2022 Periodic preventive med est patient 40-64yrs Sarah Jansen [facility] Start: 07-10-2022 End: 07-11-[address] SARAH JANSEN Facility:[facility] Start: 07-07-2022 End: 07-08-[address] SARAH JANSEN Facility:[facility] Start: 07-07-[address] SARAH JANSEN Facil ity:[facility] Start: 12-15-2021 Adult health examination Sarah Jansen Other [employer] Other Start: 08-19-2018 End: 08-20-2018 Patient encounter procedure DEFAULT PHYSICIAN Facility:[facility] Start: 07-22-2018 End: 07-23-2018 Patient encounter procedure DEFAULT PHYSICIAN Facility:[facility] Procedures Date Procedure Procedure Detail Performing Clinician Start: 07-15-2015 Screening mammography Alan Jansen Other Start: 07-14-2014 History and physical examination, administrative Sarah Jansen Other Screening for malign ant neoplasm of breast Sarah Jansen Other Plan of Treatment Date Care Activity Detail Author Start: 12-04-[address] [facility] Comprehensive metabo lic 1999 panel - Serum or Plasma [facility] Human papilloma viru s 16+18+31+33+35+39+45+51+52+56+58 +59+66+68 DNA [Presence] in Cervix by Probe with signal amplification [facility] MG Breast - bilateral Screening [facility] Immunizations Immunization Date Immunization Notes Care Provider Fa cility 05-13-2021 COVID-19 Vaccine Pfi zer - Documentation Purposes Only Sarah Jansen Other [facility] Payers Date Payer Category Payer Self-pay 1960 Unknown [id number] [id number] [id number] 1960 Unknown [id number] 2.16.8 [id number] 1960 Unknown [id number] 2.16.84 [id number] 1960 Unknown [id number] 2.16.84 [id number] 1960 Unknown [id number] 2.16.84 [id number] 1960 Unknown [id number] 2.16.84 [id number] 1960 Unknown [id number] 2.16.84 [id number] 1959 Private Health Insurance EBM [id number] Unknown Unknown [id number] 2.16.8 [id number] Social History Date Type Detail Facility Tobacco smoking status NHIS Unknown if ever smoked [facility] Work Phone: Start: 1960 Sex Assigned At Female F [facility] Sex Assigned At Sex Assigned At Bir th [facility] [employer] Other Start: 10-09-2018 Tobacco smoking status NHIS Never smoked tobacco (finding) [facility] Medical Equipment Procedure Code Equipment Code Equipment Origin al Text Equipment Identifier Dates Microlet Lancets - Start: 01-01-2023 Blood Sugar Diagnostic (Blood Glucose Test) strip Start: 11-30-2023 Clinical Notes 10-30-2014 to 10-31-2023 Note Date & Type Note Facility 10-31-2023 Note Continue lipitor and tricor- pt to have repeat annual labs with PCP next month [facility] 10-31-2023 Note Hypertension is well controlled at home- this morning B/P was 106/60 Continue losartan [facility] 10-31-2023 Note Currently stable and asymptomati c [facility] 10-31-2023 Note Resolved [facility] 10-31-2023 Note [facility]TP CARDIOLOGY PROGR ESS NOTE HPI: aKsey Sanchez is a 62 y.o. female here for F/U and review of testing- Stress, Echo and event monitor Patient here for follow up event monitor, stress test, and echo. Still has intermittent chest discomfort . Still denies SOB, palpitations, and lightheadedness/syncope. States since taking 1/2 tab of lexapro her symptoms have resolved and states she feels back to myself. Review of Systems Constitutional: Positive for malaise/fatigue. Cardiovascular: Positive for chest pain and leg swelling (end of day, resolves by morning). Musculoskeletal: Positive for arthritis and joint swelling. Psychiatric/Behavioral: The patient is nervous/anxious. All other systems reviewed and are negative. Visit Vitals BP 140/72 (BP Location: Right arm, Patient Position: Sitting) Pulse 54 Ht 1.626 m (5' 4 ) Wt 74.4 kg (164 lb) SpO2 98% BMI 28.15 kg/m??? Smoking Status Never BSA 1.83 m??? Allergies Allergen Reactions Penicillins Medications: Current Outpatient Medications on File Prior to Visit Medication Sig Dispense Refill atorvastatin (Lipitor) 10 mg tablet TAKE 1 TABLET BY MOUTH EVERY DAY 90 tablet 3 cholecalciferol (Vitamin D3) 10 MCG (400 UNIT) tablet escitalopram (Lexapro) 10 mg tablet 10 mg 1 (one) time each day. fenofibrate (Tricor) 145 mg tablet Take 145 mg by mouth in the morning. glipiZIDE XL (Glucotrol XL) 2.5 mg 24 hr tablet Take 2.5 mg by mouth in the morning. losartan (Cozaar) 50 mg tablet Take 1 tablet (50 mg) by mouth in the morning. 90 tablet 3 No current facility-administered medications on file prior to visit. Physical Exam: Constitutional: Appearance: Normal appearance. Without apparent distress HENT: Head: Normocephalic and atraumatic. Nose: Nose normal. Mouth/Throat: Mouth: Mucous membranes are moist. Eyes: Extraocular Movements: Extraocular movements intact. Conjunctiva/sclera: Conjunctivae normal. Neck: Vascular: No JVD. Cardiovascular: Rate and Rhythm: Normal rate and regular rhythm. Pulses: Dorsalis pedis pulses are 3 on the right side and 3on the left side. Posterior tibial pulses are 3 on the right side and 3 on the left side. Heart sounds: Normal heart sounds, S1 normal and S2 normal. Pulmonary: Effort: Pulmonary effort is normal. Breath sounds: Normal breath sounds. Abdominal: General: Bowel sounds are normal. Palpations: Abdomen is soft. Musculoskeletal: General: Normal range of motion. Cervical back: Normal range of motion. Right lower leg: No edema. Left lower leg: No edema. Skin: General: Skin is warm and dry. Capillary Refill: Capillary refill takes less than 2 seconds. Neurological: General: No focal deficit present. Mental Status: She is alert and oriented to person, place, and time. Psychiatric: Mood and Affect: Mood normal. Behavior: Behavior normal. Thought Content: Thought content normal. Judgment: Judgment normal. Labs: 08/30/23 renal function normal K+ normal 12/08/22- CBC stable Renal function normal Liver function slightly elevated- PCP to monitor Cholesterol stable- LDL 107- in light of liver function will not increase statin Last lab values have been reviewed CV Testing: Event monitor reviewed with pt- Sinus rhythm, Sinus tachycardia, Sinus bradycardia 68%, noted PAC and PVC Treadmill stress test 10/15/2023- Ischemic EKG changes seen in inferolateral leads, suggestive of ischemia. Horizontal ST depressions seen in leads 2,3, aVF, V4, V5, V6. Mcnamara treadmill score is 2.3; Risk is moderate for CAD. No reversible ischemia Pending exercise test results. TTE- Mild cocentric LV hypertrophy with normal systolic function, LVEF 55-60% Normal RV size and systolic function Normal diastolic function No significant valvular dysfunction Mildly elevated Rt sided pressures EKG today- sinus bradycardia- HR 54 bpm, otherwise normal EKG. No previous echocardiogram noted Treadmill stress test 2018- Abnormal stress test: the changes are mostly in the inferior leads and the imaging part was normal. Since this was a treadmill stress test and the changes resolved within 1 minute of recovery, and she had no symptoms with exercise, the ECG changes are non specific and do not carry a clinical significance. Assessment/Plan: Stress test- + ischemia, normal perfusion. No concerning symptoms at this time and good functional capacity- continue statin and losartan- HTN management- D/W pt of red flag symptoms and when to call 911 or office for chest pain, SOB, fatigue, syncope or further concerns SCALES (dyspnea on exertion) Resolved Bradycardia Currently stable and asymptomatic Essential hypertension Hypertension is well controlled at home- this morning B/P was 106/60 Continue losartan Hyperlipidemia Continue lipitor and tricor- pt to have repeat annual labs with PCP next month RTC 3 months D/W pt to call office for lightheadedness/dizzine (more content not included)... [facility] 10-31-2023 Note Patient here for fol low up event monitor, stress test, and echo. Still has intermittent chest discomfort . Still denies SOB, palpitations, and lightheadedness/syncope. Review of Systems Constitutional: Positive for malaise/fatigue. Cardiovascular: Positive for chest pain and leg swelling (end of day, resolves by morning). Musculoskeletal: Positive for arthritis and joint swelling. Psychiatric/Behavioral: The patient is nervous/anxious. All other systems reviewed and are negative. [facility] 09-19-2023 Evaluation note Encounter Date Diagnosis Assessment Notes Sep, COVID-19 (ICD-10 - U07.1) Pt is COVID POSITIVE with an at home test. Advised recommended quarantine guidelines (quarantine 5 days from symptoms onset followed by 5 days of masking when around others). Discussed viral supportive care. Push fluids and rest. Tylenol as needed for body aches or fever. OTC cough and cold medications as directed. Discussed with pt paxlovid and side effects and she would like to think about this and will call if she would like to proceed. Advised viral syndromes typically last 5-7 days, follow up with PCP if symptoms persist or worsen. Immediate eval by ER for warning s/sx as discussed, including, SOB, difficulty breathing, chest pain. Sep, Other The patient was seen per scheduled virtual care visit in their home and my location (provider) is in the family practice office setting. The staff involved in visit was myself, Eliza Galan DNP, SEED SALES MANAGER, CRAWLER TRACTOR OPERATOR (provider) and Miriam Simpson, who was the roomer in asking patient pre-visit questions per virtual visit platform. Time spent with patient was approximately 10 minutes. [employer] Other 12-28-2023 Evaluation note* Encounter Date Diagnosis Assessment Notes Treatment Notes Treatment Clinical Notes Aug, Anxiety (ICD-10 - F41.9) [employer] Other [id number] NoteNoted SCALES with excessive exertion States she usually walks the steps- 2 flights at work and does not use elevator. [facility]12-27-2023 NoteCurrently stable. States when PCP started her on lexapro her fit bit noted heart rate of 43 bpm while sitting and watching TV- therefore she stopped lexapro until cardiology evaluation. Although she states she felt good on the lexapro denied any concerning cardiac symptoms. Recommended pt to resume lexapro as prescribed, 30 day event monitor placed to evaluate heart rate/rhytm. Pt instructed to call office for lightheadedness/dizziness, near syncope or syncope and any other concerns. RTC 6 weeks [facility]23 NotePCP has ordered treadmill stress test for ischemic evaluation. I ordered echocardiogram to assess cardiac function, wall motion and valvular function EKG today without acute concerns or ST-T wave changesUnMer[facility]12-27-2023 NoteHypertension is well controlled at home, white coat syndrome in office. Continue losartanUnMer[facility]12-27-2023 NoteLipid abnormalities are slightly elevated LDL at 104- continue heart healthy diet and lifestyle modifications. Continue lipitor 10 mg and tricor.[facility]12-27-2023 NoteUTP CARDIOLOGY PROGRESS NOTE HPI: Kasey Sanchez is a 62 y.o. female here for bradycardia, HTN, Hyperlipidemia and SVT Patient here for 6 mo follow up bradycardia, hypertension, and hyperlipidemia. Had labs 2 weeks ago. She was recently started on Lexapro, but she stopped it due to possible bradycardia, as she's already running low. When she stopped it, HR did come back up to the 50's. PCP ordered stress test, which she will have end of next week. She gets mid sternal chest pain/ pressure that is radiating to her back, worse with anxiety/stress, occasionally with exertion, denied nausea or sweating with CP. Says this is what she gets during panic attacks, but PCP wanted to check stress test. Denies lightheadedness/dizziness, syncope or near syncope. Reviewed b/p log from home and b/p at home is typically well controlled 120-126/70-80 and almost always < 130/80. Review of Systems Constitutional: Positive for malaise/fatigue. Cardiovascular: Positive for chest pain and leg swelling (end of day, resolves by morning). Musculoskeletal: Positive for arthritis and joint swelling. Psychiatric/Behavioral: The patient is nervous/anxious. All other systems reviewed and are negative. Visit Vitals BP 156/78 (BP Location: Left arm, Patient Position: Sitting) Pulse 53 Ht 1.626 m (5' 4 ) Wt 73.9 kg (163 lb) SpO2 99% BMI 27.98 kg/m??? Smoking Status Never BSA 1.83 m??? Allergies Allergen Reactions Penicillins Medications: Current Outpatient Medications on File Prior to Visit Medication Sig Dispense Refill atorvastatin (Lipitor) 10 mg tablet TAKE 1 TABLET BY MOUTH EVERY DAY 90 tablet 3 cholecalciferol (Vitamin D3) 10 MCG (400 UNIT) tablet fenofibrate (Tricor) 145 mg tablet Take 145 mg by mouth in the morning. glipiZIDE XL (Glucotrol XL) 2.5 mg 24 hr tablet Take 2.5 mg by mouth in the morning. losartan (Cozaar) 50 mg tablet Take 1 tablet (50 mg) by mouth in the morning. 90 tablet 3 No current facility-administered medications on file prior to visit. Physical Exam: Constitutional: Appearance: Normal appearance. Without apparent distress HENT: Head: Normocephalic and atraumatic. Nose: Nose normal. Mouth/Throat: Mouth: Mucous membranes are moist. Eyes: Extraocular Movements: Extraocular movements intact. Conjunctiva/sclera: Conjunctivae normal. Neck: Vascular: No JVD. Cardiovascular: Rate and Rhythm: Normal rate and regular rhythm. Pulses: Dorsalis pedis pulses are 3 on the right side and 3on the left side. Posterior tibial pulses are 3 on the right side and 3 on the left side. Heart sounds: Normal heart sounds, S1 normal and S2 normal. Pulmonary: Effort: Pulmonary effort is normal. Breath sounds: Normal breath sounds. Abdominal: General: Bowel sounds are normal. Palpations: Abdomen is soft. Musculoskeletal: General: Normal range of motion. Cervical back: Normal range of motion. Right lower leg: No edema. Left lower leg: No edema. Skin: General: Skin is warm and dry. Capillary Refill: Capillary refill takes less than 2 seconds. Neurological: General: No focal deficit present. Mental Status: She is alert and oriented to person, place, and time. Psychiatric: Mood and Affect: Mood normal. Behavior: Behavior normal. Thought Content: Thought content normal. Judgment: Judgment normal. Labs:08/30/23 renal function normal K+ normal 12/08/22- CBC stable Renal function normal Liver function slightly elevated- PCP to monitor Cholesterol stable- LDL 107- in light of liver function will not increase statin Last lab values have been reviewed CV Testing: EKG today- sinus bradycardia- HR 54 bpm, otherwise normal EKG. No previous echocardiogram noted Treadmill stress test 2017- Abnormal stress test: the changes are mostly in the inferior leads and the imaging part was normal. Since this was a treadmill stress test and the changes resolved within 1 minute of recovery, and she had no symptoms with exercise, the ECG changes are non specific and do not carry a clinical significance. No echocardiogram results found for the past 12 months Assessment/Plan: Hyperlipidemia Lipid abnormalities are slightly elevated LDL at 104- continue heart healthy diet and lifestyle modifications. Continue lipitor 10 mg and tricor. Essential hypertension Hypertension is well controlled at home, white coat syndrome in office. Continue losartan Chest pain PCP has ordered treadmill stress test for ischemic evaluation. I ordered echocardiogram to assess cardiac function, wall motion and valvular function EKG today without acute concerns or ST-T wave changes Bradycardia Currently stable. States when PCP started her on lexapro her fit bit noted heart rate of 43 bpm while sitting and watching TV- therefore she stopped lexapro until cardiology evaluation. Although she states she felt good on the lexapro denied any concerning cardiac symptom (more content not included)... [facility]12-27-2023 NotePatient here for 6 mo follow up bradycardia, hypertension, and hyperlipidemia. Had labs 2 weeks ago. She was recently started on Lexapro, but she stopped it due to possible bradycardia, as she's already running low. When she stopped it, HR did come back up to the 50's. PCP ordered stress test, which she will have end of next week. She gets chest pain radiating to her back. Says this is what she gets during panic attacks, but PCP wanted to check stress test. Denies palpitations and lightheadedness. Review of Systems Constitutional: Positive for malaise/fatigue. Cardiovascular: Positive for chest pain and leg swelling (end of day, resolves by morning). Musculoskeletal: Positive for arthritis and joint swelling. Psychiatric/Behavioral: The patient is nervous/anxious. All other systems reviewed and are negative.[facility] 08-21-2023 Evaluation note* Encounter Date Diagnosis Assessment Notes Treatment Notes Treatment Clinical Notes Aug, Other chest pain (ICD-10 - R07.89) Reviewed stress test from 2018. Similar symptoms at that time, but it has been 5 years. Pt agrees to repeat stress. Notes substernal chest pain that radiates to back at times. This occurs at rest. Due to female, diabetes, explained symptoms could be nonspecific for cardiac causes. Aug, Anxiety (ICD-10 - F41.9) Pt agrees to medication managment Aug, Controlled type 2 diabetes mellitus with hyperglycemia (ICD-10 - E11.65) Due for labs Diabetes well controlled. No hypoglycemia. Home blood sugars reviewed. Patterns stable. Patient is to be careful with diet and meal timing. Understands the importance of this. Doesn't skip meals. Compliant with medications. Patient is advised to have a snack before bedtime. Patient is to pay attention to body and symptoms, with any reoccurring patterns. Aug, Vitamin D deficiency (ICD-10 - E55.9) Due for labs [employer] Other 05-24-2023 NoteLipid abnormalities are stable, continue lipitor 10 mg and heart healthy diet. PCP to monitor liver functionUnMercy Hospital05-24-2023 Note Hypertension is at home is currently well controlled- typically 120-130/60-70 after review of her b/p log. Continue losartan Renal function normalUnMercy Hospital05-24-2023 NoteStable, no concerning symptomsUnMercy Hospital05-24-2023 NoteUTP CARDIOLOGY PROGRESS NOTE HPI: Kasey Sanchez is a 62 y.o. female here for HTN, Hyperlipidemia and SVT Currently denied chest pain, shortness of breath, orthopnea, paliptations, lightheadedness, dizziness or syncope Overall states she is feeling well, just stressed from work. Visit Vitals BP 162/80 (BP Location: Right arm, Patient Position: Sitting) Pulse 57 Ht 1.626 m (5' 4 ) Wt 73 kg (161 lb) SpO2 99% BMI 27.64 kg/m??? Smoking Status Never BSA 1.82 m??? Allergies Allergen Reactions Penicillins Medications: Current Outpatient Medications on File Prior to Visit Medication Sig Dispense Refill atorvastatin (Lipitor) 10 mg tablet atorvastatin 10 mg tablet TAKE 1 TABLET BY MOUTH EVERY DAY fenofibrate (Tricor) 145 mg tablet Take 145 mg by mouth in the morning. glipiZIDE XL (Glucotrol XL) 2.5 mg 24 hr tablet Take 2.5 mg by mouth in the morning. losartan (Cozaar) 50 mg tablet Take 1 tablet (50 mg) by mouth in the morning. 90 tablet 0 No current facility-administered medications on file prior to visit. Physical Exam: Constitutional: Appearance: Normal appearance. Without apparent distress HENT: Head: Normocephalic and atraumatic. Nose: Nose normal. Mouth/Throat: Mouth: Mucous membranes are moist. Eyes: Extraocular Movements: Extraocular movements intact. Conjunctiva/sclera: Conjunctivae normal. Neck: Vascular: No JVD. Cardiovascular: Rate and Rhythm: Normal rate and regular rhythm. Pulses: Dorsalis pedis pulses are 3 on the right side and 3on the left side. Posterior tibial pulses are 3 on the right side and 3 on the left side. Heart sounds: Normal heart sounds, S1 normal and S2 normal. Pulmonary: Effort: Pulmonary effort is normal. Breath sounds: Normal breath sounds. Abdominal: General: Bowel sounds are normal. Palpations: Abdomen is soft. Musculoskeletal: General: Normal range of motion. Cervical back: Normal range of motion. Right lower leg: No edema. Left lower leg: No edema. Skin: General: Skin is warm and dry. Capillary Refill: Capillary refill takes less than 2 seconds. Neurological: General: No focal deficit present. Mental Status: She is alert and oriented to person, place, and time. Psychiatric: Mood and Affect: Mood normal. Behavior: Behavior normal. Thought Content: Thought content normal. Judgment: Judgment normal. Labs: 12/08/22- CBC stable Renal function normal Liver function slightly elevated- PCP to monitor Cholesterol stable- LDL 107- in light of liver function will not increase statin Last lab values have been reviewed CV Testing: No echocardiogram results found for the past 12 months Assessment/Plan: Bradycardia Stable, no concerning symptoms Essential hypertension Hypertension is at home is currently well controlled- typically 120-130/60-70 after review of her b/p log. Continue losartan Renal function normal Hyperlipidemia Lipid abnormalities are stable, continue lipitor 10 mg and heart healthy diet. PCP to monitor liver function RTC 1 yearUnMercy Hospital05-24-2023 NotePatient here for 1 year follow up SVT, hyperlipidemia, and hypertension. Had routine labs in November 2022. Denies chest pain, SOB, and palpitations. Does get anxiety and suffers panic attacks, but has learned how to deal with them. Review of Systems Cardiovascular: Positive for leg swelling (end of day, resolves by morning). Musculoskeletal: Positive for arthritis and joint swelling. Psychiatric/Behavioral: The patient is nervous/anxious. All other systems reviewed and are negative.[facility] 12-04-2022 Evaluation note* Encounter Date Diagnosis Assessment Notes Treatment Notes Treatment Clinical Notes Nov, Wellness examination (ICD-10 - Z00.00) Due for labs. Discussed joint pain and fatigue. She is established with GI and has been anemic in the past. Will recheck labs. Nov, Screening mammogram for breast cancer (ICD-10 - Z12.31) Nov, Controlled type 2 diabetes mellitus with hyperglycemia (ICD-10 - E11.65) Pt presents w a list of BP and glucose 150-200. Will check a1C Nov, Fatigue (ICD-10 - R53.83) [employer] Other 02-13-2015 Evaluation note* Diagnosis Onset Date Resolution Status Essential (primary) hypertension October 30, 2014 acute Type 2 diabetes mellitus with hyperglycemia acute [facility] Work Phone: Evaluation noteNo assessment information available [facility] Work Phone: Evaluation noteNo InformationNortWerners[facility] [employer] Other History general Narrative - Reported* Type Description Date Medical History hyperlipidemia Medical History DM II Medical History HTN Medical History Anemia, iron deficiency, inadequ ate dietary intake Medical History Vitamin D deficiency Medical History Hyperlipidemia, mixed Medical History Controlled type 2 di abetes mellitus with hyperglycemia Medical History Nephrolith Medical History Fatigue Medical History Pain in female pelvis Medical History Metallic taste Medical History Hip pain, left Medical History Left forearm pain Medical History Bradycardia Medical History Chronic depression Medical History Essential hypertension Medical History LUMBAR PAIN WITH RADIATION DOWN LEFT LEG Surgical History umbilical hernia repair Surgical History lithotripsy Surgical History tonsillectomy Surgical History colonoscopy done [address] Pete kenyon Surgical History Gallbladder 08/07/2018 Hospitalization History SEE SURGICAL HX [facility] [employer] Other Summary Purpose Family History Relationship Condition Age at Onset Recorded Date/T toni father Unknown Advance Directives Advance Directive Response Recorded Date/ Time Advance Directives No December 07, 2 023 2:36pm Chief Complaint and Reason for Visit Chief Complaint Amb Documentation discussion medications with BS Reason for Visit Essential (primary) hypertension Type 2 diabetes mellitus with hyperglycemia Additional Source Comments INFORMATION SOURCE (unrecogn ized section and content) DATE CREATED AUTHOR 08/25/2018 [facility] DATE CREATED AUTHOR AUTHOR'S ORGANIZ ATION 12/19/2022 [facility] DATE CREATED AUTHOR AUTHOR'S ORGANIZ ATION 01/04/2023 [facility] DATE CREATED AUTHOR AUTHOR'S ORGANIZ ATION 11/05/2023 [facility] Care Teams (unrecognized sec tion and content) Team Status: Inactive Member Role Status Dates Sarah Jansen MD Attending Provider Active Team Status: Active Member Role Status Dates Sarah Jansen MD Primary Care Provider Active Team Status: Active Member Role Status Dates Provider Conversion Attending Provider Active St art: September 20, 2023 Team Status: Active Member Role Status Dates PHYSICIAN NO FAMILY Primary Care Provider Active Start: November 30, 2023 LAKESHIA Harper Attending Provider Active Start : November 30, 2023 Team Status: Inactive Member Role Status Dates Sarah Jansen MD Primary Care Provide r, Attending Provider Active Start: December 18, 2023 End: December 18, 2023 Goals (unrecognized section and content) Goals may be documented in a n alternate sectionNo InformationNo InformationNo InformationNo InformationNo InformationNo InformationNo InformationNo InformationNo InformationNo InformationGoals may be documented in an alternate section REASON FOR VISIT (unrecogniz ed section and content) PAP/ WELLNESSlabsrefillCheck UpupdateRefillcovidcovid +messageNo Information FOR RECORDS PERTAINING TO PATIENTS WHO ARE OR HAVE BEEN ENROLLED IN A CHEMICAL DEPENDENCY/SUBSTANCEABUSE PROGRAM, SOME INFORMATION MAY BE OMITTED. This clinical summary was aggregated from multiple sources. Caution should be exercised in using it in the provision of clinical care. This summary normalizes information from multiple sources, and as a consequence, information in this document may materially change the coding, format and clinical context of patient data. In addition, data may be omitted in some cases. CLINICAL DECISIONS SHOULD BE BASED ON THE PRIMARY CLINICAL RECORDS. [employer] [facility]. provides no warranty or guarantee of the accuracy or completeness of information in this document.
--- NOTE | 2024-01-09 06:56 | MM_ITS ---
Patient Name: GEOVANI HEARD MR#: [id number] : 1960 Exam Date: 01/09/2024 Ordering Doctor: DR Sarah Orosco M.D. RADIOLOGY REPORT PROCEDURE: MM TOMOSYNTHESIS SCREENING BI COMPARISON: MG MAMM SCREEN 3D TITI CAD, 12/29/2022. MG MAMM SCREEN 3D TITI CAD, 12/26/2021. MG MAMM SCREEN 3D TITI CAD, 12/10/2020. MG MAMM TITI SCRN W CAD DIG, 02/06/2013. INDICATIONS: Screening Calculator Name NCI Breast Cancer Risk Assessment Tool 5 Year Breast Cancer Risk 2.20% Lifetime Breast Cancer Risk 9.10% Personal Breast Cancer No Personal Ovarian Cancer No Treatments None Family Cancers Mother with colon cancer at age 90; Aunt-maternal with esohagus cancer at age 86; Father with bone cancer at age 72; Uncle-paternal with bone cancer at age 80. LOCATION: [facility] BREAST COMPOSITION: The breasts are heterogeneously dense,which may obscure small masses. FINDINGS: DIAGNOSTIC CATEGORY 1--NEGATIVE. RIGHT BREAST: No significant suspicious finding. No significant change has occurred. LEFT BREAST: No significant suspicious finding. No significant change has occurred. RECOMMENDATIONS: ROUTINE MAMMOGRAM AND CLINICAL EVALUATION IN 12 MONTHS. PLEASE NOTE: A NORMAL MAMMOGRAM DOES NOT EXCLUDE THE POSSIBILITY OF BREAST CANCER. A CLINICALLY SUSPICIOUS PALPABLE LUMP SHOULD BE BIOPSIED. Dictated by: Sarabjit Espinal M.D. on 01/09/2024 at 13:47 Approved by: Sarabjit Espinal M.D. on 01/09/2024 at 13:52
[2024-01-09 07:46] LABS: Basophils Absolute Auto 0.1 10^3/uL (0.0-0.1); Basophils Percent Auto 1.6 % (0.2-2.0); Eosinophils Absolute Auto 0.1 10^3/uL (0.0-0.7); Eosinophils Percent Auto 2.1 % (0.9-7.0); Hemoglobin 10.7 g/dL (12.0-16.0); Immature Granulocytes Abs Auto 0.05 10^3/uL (0.00-0.03); Immature Granulocytes Pct Auto 0.8 % (0.0-0.5); Lymphocytes Absolute Auto 1.9 10^3/uL (1.2-3.8); Mean Corpuscular HGB Conc 31.5 g/dL (29.9-35.2); Mean Corpuscular Volume 92.1 fL (81.0-99.0); Mean Platelet Volume 10.5 fL (9.5-13.5); Monocytes Absolute Auto 0.6 10^3/uL (0.3-0.8); Monocytes Percent Auto 8.7 % (1.7-12.0); Neutrophils Absolute Auto 3.6 10^3/uL (1.4-6.5); Neutrophils Percent Auto 56.8 % (43.0-75.0); Platelet Count 227 10^3/uL (150-450); Red Blood Count 3.69 10^6/uL (4.20-5.40); Red Cell Distribution Width 14.5 % (11.0-15.0); White Blood Count 6.3 10^3/uL (4.0-11.0)
[2024-01-09 08:20] LABS: Estimated Average Glucose 148 mg/dL; Glycohemoglobin A1C 6.8 % (4.5-6.2)
[2024-01-09 08:25] LABS: Alanine Aminotransferase 131 U/L (14-59); Albumin Globulin Ratio 1.1; Albumin Level 3.8 g/dL (3.4-5.0); Alkaline Phosphatase 41 U/L (46-116); Anion Gap 13.2; Aspartate Amino Transferase 82 U/L (15-37); BUN Creatinine Ratio 27.6; Bilirubin Total 0.6 mg/dL (0.2-1.0); Calcium 9.2 mg/dL (8.5-10.1); Carbon Dioxide 28.6 mmol/L (21.0-32.0); Chloride 104 mmol/L (98-107); Chol HDL Ratio 4.6; Cholesterol 166 mg/dL (<=200); Estimated GFR (African America >60 (>=60); Estimated GFR (Non-African Ame 57 (>=60); Globulin 3.6 g/dL; Glucose 173 mg/dL (74-106); HDL Cholesterol 36 mg/dL (40-60); Potassium 3.8 mmol/L (3.5-5.1); Sodium 142 mmol/L (136-145); Total Protein 7.4 g/dL (6.4-8.2); Triglycerides 109 mg/dL (<=150); VLDL CHOLESTEROL 21.8 mg/dL
== END 2024-01-09 06:51 | disposition home or self-care (01) ==
LOC: MAMMO 06:50
PROVIDERS: PCP Family Medicine; Visit Provider Family Medicine
DX: Z12.31 Encounter for screening mammogram for malignant neoplasm of breast (principal); E11.65 Type 2 diabetes mellitus with hyperglycemia; I10 Essential (primary) hypertension; Z80.0 Family history of malignant neoplasm of digestive organs; Z80.8 Family history of malignant neoplasm of other organs or systems
CPT/HCPCS: 36415; 77063; 77067; 80053; 80061; 83036; 85025

== ENCOUNTER 2024-02-29 07:54 | Outpatient (OUT) | payer OTHER, SELFPAY ==
--- OUTSIDE RECORDS SUMMARY | 2024-02-29 07:56 | XMS_ITS | CCD ---
Author Organization [facility] Care Team Providers Care Haircutter Name Role Phone PHYSICIAN, DEFAULT Unavailable Unavailable PHYSICIAN, DEFAULT Unavailable Unavailable PHYSICIAN, DEFAULT Unavailable Unavailable PHYSICIAN, DEFAULT Unavailable Unavailable MD Sarah Jansen Attending Provider [phone] Sarah Jansen Unavailable INDERJIT, DR SARAH Luque Primary Care Unavailable JANSEN, [...] SARAH Luque Consulting Unavailable Eliza Galan Unavailable MD Sarah Jansen Primary Care Provider [phone] MD Sarah Jansen Attending Provider Sarah Jansen Attending Unavailable Sarah Jansen Primary Care Unavailable Sarah Jansen Admitting Unavailable PAT WEST Attending Unavailable JENNA, PAT Attending Unavailable JENNA, PAT Attending Unavailable ZI, EHAB Attending Unavailable Allergies Allergy Classification Reported Allergen(s) Allergy Type Date of Onset Reaction(s) Facility (10 sources) levoFLOXacin Drug Allergy Unknown [facility] Other (7 sources) Penicillins (Antibiotic) Propensity to adverse reactions Unknown [facility] Real Time Translation Other (13 sources) Sulfamethoxazole Drug Allergy 12-18-19 24 Unknown, [facility] (5 sources) Penicillins; Translations: [PENICILLINS] Drug allergy (disorder) 03-10-20 13 Hives [facility] Repository (1 source) Sulfonamides (Antibiotic) Drug allergy (disorder) [facility] Repository (8 sources) Penicillin Drug Allergy 06-20-20 13 Unknown [facility] Other (5 sources) Substance with penicillin structure and antibacterial mechanism of action (substance) Drug allergy Unknown [facility] Real Time Translation Other (5 sources) patient allergy list reviewed by nurse or physicia Propensity to adverse reactions 12-09-19 14 Comment:[facility] Real Time Translation Other (5 sources) Allergies Reconciled Propensity to adverse reactions Unknown [facility] Real Time Translation Other (4 sources) levoFLOXacin; Translations: [levofloxacin] Drug Allergy 12-18-19 24 [facility] (1 source) Penicillins Drug allergy (disorder) 01-18-20 24 [facility] Repository (1 source) Sulfamethoxazole Drug Allergy 01-18-20 24 [facility] Repository Medications Current Medications Medication Drug Class(es) Dates [...] ONCE A DAY for 90 days Active ergocalciferol 0.01 mg oral tablet (2 sources) Provitamin D2 Compound Start: 01-16-20 24 take 10 ug by mouth once daily Ergocalciferol (Vitamin D2) Active 10 MCG PO Daily January 16, 2024 12:00am escitalopram 10 mg oral tablet (10 sources) Serotonin Reuptake Inhibitor Start: 12-18-19 24 take 1 tablet by mouth once daily Escitalopram Oxalate (Lexapro) 10 mg tablet Active 10 MG PO Daily December 18, 2023 12:00am Start: 08-21-2023 take 1 tablet by dayanara th every twenty-four hours Escitalopram Oxalate 10 MG 1 tablet Orally Once a day for 30 day(s) Aug, Active fenofibrate 145 mg oral tablet (16 sources) Peroxisome Proliferator Receptor alpha Agonist Start: 12-17-2023 take 145 mg by mouth once daily Fenofibrate Nanocrystallized Active 145 MG PO Daily December 17, 2023 12:00am take 1 tablet by mouth once germaine y Fenofibrate 145 MG TAKE 1 TABLET BY MOUTH EVERY DAY for 90 Active glipiZIDE (15 sources) Sulfonylurea Start: 12-31-2023 take 1 tablet by mouth once daily Glipizide Active 0 .ROUTE .COMPLEX 90 December 31, 2023 11:11am TAKE 1 TABLET BY MOUTH EVERY DAY Start: 12-17-2023 End: 12-31-2023 take 2.5 mg by mouth once daily Glipizide Discontinued 2.5 MG PO Daily December 17, 2023 12:00am December 31, 2023 11:11am take 1 tablet by dayanara th once daily glipiZIDE ER 2.5 MG TAKE 1 TABLET BY MOUTH EVERY DAY for 90 Active Hair Skin Nails (10 sources) losartan potassium 50 mg oral tablet (13 sources) Angiotensin 2 Receptor Noel Start: 12-17-2023 [...] once daily Active Vit E-Vit C-Beta Carotene [phone] (10 sources) take 200-250 tablets by mouth once daily Vit E-Vit C-Beta Carotene [phone] 1 tablet Orally Once a day Active Completed/Discontinued Medications Medication Drug Class(es) Dates Sig (Normalized) Sig (Original) docusate sodium 100 mg oral capsule (12 sources) Start: 01-16-2024 End: 01-18-2024 take 1 capsule by mouth three times daily take 1 capsule by mouth every ei ght hours ferrous sulfate 325 mg oral tablet (3 sources) Start: 02-24-2019 take 1 tablet by dayanara th every twenty-four hours Ferrous Sulfate 325 (65 [...] perineal pain] Onset: 01-17-2016 Episodic Anxiety disorders (12 sources) Anxiety; Translations: [Anxiety disorder, unspecified] Chronic Calculus of urinary tract (20 sources) Kidney stone; Translations: [Calculus of kidney] Onset: 07-07-2022 Episodic Chronic obstructive pulmonary disease and bronchiectasis (8 sources) Bronchitis; Translations: [Bronchitis, not specified as acute or chronic] Episodic Deficiency and other anemia (20 sources) Iron deficiency anemia; Translations: [Iron deficiency anemia, unspecified] 12-17-2023 Episodic Deficiency and other anemia (3 sources) Iron deficiency anemia secondary to inadequate dietary [...] hypertension; Translations: [Essential (primary) hypertension] Onset: 10-30-2014 12-17-2023 Chronic Genitourinary symptoms and ill-defined conditions (8 sources) Dysuria; Translations: [Dysuria] Episodic Hepatitis (13 sources) Nonalcoholic steatohepatitis; Translations: [Nonalcoholic steatohepatitis (SAINI)] 12-17-2023 Chronic Malaise and fatigue (20 sources) Fatigue; Translations: [Other fatigue] Episodic Mood disorders (20 sources) Chronic depression; Translations: [Major depressive disorder, single episode, unspecified] 12-17-2023 Chronic Nutritional deficiencies (20 sources) Vitamin D deficiency; [...] of) liver, not elsewhere classified] Chronic Other nervous system disorders (10 sources) Metallic [...] neoplasm of digestive organs; Translations: [FAM HX ROBYN NEOPLASM DIGESTIV ORGN] Onset: 01-04-2023 Episodic Residual codes; unclassified (1 source) Family history of malignant neoplasm of other organs or systems; Translations: [FAM HX MALQUIQUE NEOPLASM OTH ORGN/SYS] Onset: 01-04-2023 Episodic Spondylosis; intervertebral disc disorders; other back problems (11 sources) Low back pain; Translations: [Low back pain, unspecified] 12-17-2023 Episodic Unclassified (8 sources) Exposure to acute respiratory syndrome coronavirus 2; Translations: [Contact with and (suspected) exposure to COVID-19] Past or Other Problems Problem Classification Problem Date Documented Da te Episodic/Chronic Acute bronchitis (8 sources) Acute bronchitis; Translations: [Acute bronchitis, unspecified] Onset: 12-03-2015 Episodic Cardiac dysrhythmias (20 sources) Bradycardia; Translations: [Bradycardia, unspecified] Onset: 02-07-2023 12-17-2023 Episodic Deficiency and other anemia (1 source) Other iron deficiency anemias; Translations: [OTHER IRON DEFICIENCY ANEMIAS] Onset: 07-12-2022 Episodic Deficiency and other anemia (8 sources) Anemia; Translations: [Anemia, unspecified] Onset: 11-15-2018 Episodic Diabetes mellitus without complication (8 sources) Hyperglycemia; Translations: [Hyperglycemia, unspecified] Onset: 09-12-2014 Episodic Nonspecific chest pain (19 sources) Chest pain; Translations: [Other chest pain] Onset: 07-11-2018 Episodic Other female genital disorders (8 sources) Other specified conditions associated with female genital organs and menstrual cycle; Translations: [Oth cond assoc w female genital organs and menstrual cycle] Onset: 07-15-2015 Episodic Other gastrointestinal disorders (8 sources) Diarrhea; Translations: [Diarrhea] Onset: 01-17-2016 Episodic Other lower respiratory disease (2 sources) Other forms of dyspnea; Translations: [Other forms of dyspnea] Onset: 09-12-2023 Episodic Residual codes; unclassified (8 sources) Family [...] Value Interpretation Reference Range Facility Office Visiton 01-30-2024 Follow-up visit [id number] Kasey Sanchez 1960 F Date Provider Department Center 01/30/2024 Emigdio-FEMI PINON [facility] Family History Problem Relation Age of Onset Stroke Mother Hyperlipidemia Mother Aortic aneurysm Father Family Status - Relation Status Age at Mother Father Level of Service:44301 [place] OFFICE/OUTPATIENT ESTABLISHED LOW MDM 20 MIN Normal [facility] IGP,Aptima HPV,Age Gdlnon PAP HPV Aptima Negative Normal Negative [facility] Comment on above: Result Comment: This nucleic acid amplification test detects fourteen high- risk HPV types (16,18,31,33,35,39,45,51,52,56,58,59,66,68) without differentiation. Performed at: =[facility] [id number] Airport Sales Agent: Laura Bull MD, Phone: [phone] Performed at: [facility] [id number] Airport Sales Agent: Laura Bull MD, Phone: [phone] PERFORMED BY: [address] [place] [address] PATHOLOGIST [employer] CROSSING GUARD KAMLA ARCE M.D. Performed By: #### P AP [id number] #### [facility] , Pap Image Guided Note Normal . [facility] Comment on above: Result Comment: TEST S RESULT FLAG UNITS REF RANGE LAB Clinician Provided Cytology Information No. of containers..01 ThinPrep Vial Age Shayla Meier... FLAG LEGEND: L-Low Normal,H-High Normal,LL-Alert Low,HH-Alert High <-Panic Low,>-Panic High,A-Abnormal,AA-Critical Abnormal Performed at: 01 =G [facility] [id number] Laura Bull MD, Performed By: #### P AP [id number] #### [facility] , Result Comment: TEST S RESULT FLAG UNITS REF RANGE LAB DIAGNOSIS: 02 NEGATIVE FOR INTRAEPITHELIAL LESION OR MALIGNANCY. THIS SPECIMEN WAS RESCREENED PART OF OUR FASHION DIRECTOR PROGRAM. Specimen adequacy: 02 Satisfactory for evaluation. Endocervical and/or squamous metaplastic cells (endocervical component) are present. Performed by: Leanne Henson, Dewer ([facility]) QC reviewed by: Michelle Hess, Dewer . 02 Note: Note 02 The Pap smear is a screening test designed to aid in the detection of premalignant and malignant conditions of the uterine cervix. It is not a diagnostic procedure and should not be used as the sole means of detecting cervical cancer. Both false-positive and false-negative reports do occur. Test Methodology: Note 02 The [employer]R) Case Technician was unable to read this specimen. Therefore a manual review was performed. FLAG LEGEND: L-Low Normal,H-High Normal,LL-Alert Low,HH-Alert High <-Panic Low,>-Panic High,A-Abnormal,AA-Critical Abnormal Performed at: [address] [id number] Laura Bull MD, HPV Genotype Reflex Note 02 Criteria not met, HPV Genotype not performed. Criteria not met, HPV Genotype not performed. Basophils Auto (Bld) [#/Vol] on 01-09-2024 Basophils (Bld) [#/Vol] 0.1 10 3/uL 0.0-0.1 [facility] Basophils/100 WBC Auto (Bld) on 01-09-2024 Basophils/100 WBC (Bld) 1.6 % 0.2-2.0 [facility] Cholesterol in LDL Calc [Mas s/Vol]on 01-09-2024 Cholesterol in LDL [Mass/Vol] 109.0 mg/dL [facility] Comment on above: <100 mg/dl [id number] 0-129 mg/dl NEAR OR ABOVE [id number] mg/dl BORDERLINE [id number] mg/dl HIGH>190 mg/dl VERY HIGH Cholesterol in VLDL Calc [Ma ss/Vol]on 01-09-2024 Cholesterol in VLDL [Mass/Vol] 21.8 mg/dL [facility] Eosinophils/100 WBC Auto (Bl d)on 01-09-2024 Eosinophils/100 WBC (Bld) 2.1 % 0.9-7.0 [facility] Erythrocyte distribution wid th Auto (RBC) [Ratio]on 01-09-2024 Erythrocyte distribution width (RBC) [Ratio] 14.5 % 11.0-15.0 [facility] Estimated glomerular filtrat ion rate (GFR) non- Americanon 01-09-2024 GFR/1.73 sq M.predicted among non-blacks MDRD (S/P/Bld) [Vol rate/Area] 57 mL/min/{1.73_m2} >=60 [facility] Globulin Calc (S) [Mass/Vol] on 01-09-2024 Globulin (S) [Mass/Vol] 3.6 g/dL [facility] Glucose mean value [Mass/vol ume] in Blood Estimated from glycated hemoglobinon 01-09-2024 Average glucose Estimated from glycated hemoglobin (Bld) [Mass/Vol] 148 mg/dL [facility] Hematocrit Auto (Bld) [Volum e fraction]on 01-09-2024 Hematocrit (Bld) [Volume fraction] 34.0 % 36.0-48.0 [facility] Hemoglobin [Mass/volume] in Bloodon 01-09-2024 Hemoglobin (Bld) [Mass/Vol] 10.7 g/dL 12.0-16.0 [facility] Laboratory - Chemistry and C hemistry - challengeon 01-09-2024 Albumin [Mass/Vol] 3.8 g/dL 3.4-5.0 [facility] ALP [Catalytic activity/Vol] 41 U/L 46-116 [facility] ALT [Catalytic activity/Vol] 131 U/L 14-59 [facility] AST [Catalytic activity/Vol] 82 U/L 15-37 [facility] Bilirubin [Mass/Vol] 0.6 mg/dL 0.2-1.0 [facility] Calcium [Mass/Vol] 9.2 mg/dL 8.5-10.1 [facility] Chloride [Moles/Vol] 104 mmol/L 98-107 [facility] Cholesterol [Mass/Vol] 166 mg/dL <=200 [facility] Cholesterol in HDL [Mass/Vol] 36 mg/dL 40-60 [facility] Comment on above: > or =60 mg/dl - LOW CARDIOVASCULAR RISK<40 mg/dl - HIGH CARDIOVASCULAR RISK CO2 [Moles/Vol] 28.6 mmol/L 21.0-32.0 [facility] Creatinine [Mass/Vol] 0.98 mg/dL 0.55-1.02 [facility] GFR/1.73 sq M.predicted MDRD (S/P/Bld) [Vol rate/Area] mL/min/{1.73_m2} >=60 [facility] Glucose [Mass/Vol] 173 mg/dL 74-106 [facility] Potassium [Moles/Vol] 3.8 mmol/L 3.5-5.1 [facility] Protein [Mass/Vol] 7.4 g/dL 6.4-8.2 [facility] Sodium [Moles/Vol] 142 mmol/L 136-145 [facility] Triglyceride [Mass/Vol] 109 mg/dL <=150 [facility] Urea nitrogen [Mass/Vol] 27.0 mg/dL 7.0-18.0 [facility] Urea nitrogen/Creatinine [Mass ratio] 27.6 mg/mg [facility] Laboratory - Hematology and Cell countson 01-09-2024 HbA1c (Bld) [Mass fraction] 6.8 % 4.5-6.2 [facility] Comment on above: ADA RECOMMENDED LIMI T 4.0 - 6.0ADA THERAPEUTIC TARGET < 7.0ACTION SUGGESTED> 7.0 Immature granulocytes/100 WBC (Bld) 0.8 % 0.0-0.5 [facility] Leukocytes [#/volume] correc shamar for nucleated erythrocytes in Blood by Automated counon 01-09-2024 WBC corrected for nucl RBC Auto (Bld) [#/Vol] 6.3 10 3/uL 4.0-11.0 [facility] Lymphocytes Auto (Bld) [#/Vo l]on 01-09-2024 Lymphocytes (Bld) [#/Vol] 1.9 10 3/uL 1.2-3.8 [facility] Lymphocytes/100 WBC Auto (Bl d)on 01-09-2024 Lymphocytes/100 WBC (Bld) 30.0 % 20.5-60.0 [facility] MCH Auto (RBC) [Entitic mass ]on 01-09-2024 MCH (RBC) [Entitic mass] 29.0 pg 26.7-34.0 [facility] MCHC Auto (RBC) [Mass/Vol]on 01-09-2024 MCHC (RBC) [Mass/Vol] 31.5 g/dL 29.9-35.2 [facility] MCV Auto (RBC) [Entitic vol] on 01-09-2024 MCV (RBC) [Entitic vol] 92.1 fL 81.0-99.0 [facility] Monocytes Auto (Bld) [#/Vol] on 01-09-2024 Monocytes (Bld) [#/Vol] 0.6 10 3/uL 0.3-0.8 [facility] Monocytes/100 WBC Auto (Bld) on 01-09-2024 Monocytes/100 WBC (Bld) 8.7 % 1.7-12.0 [facility] Neutrophils Auto (Bld) [#/Vo l]on 01-09-2024 Neutrophils (Bld) [#/Vol] 3.6 10 3/uL 1.4-6.5 [facility] Neutrophils/100 WBC Auto (Bl d)on 01-09-2024 Neutrophils/100 WBC (Bld) 56.8 % 43.0-75.0 [facility] No Panel Informationon 01-08 Eosinophils # (Auto) 0.1 10 3/uL 0.0-0.7 [facility] Immature Granulocyte # (Auto) 0.05 10 3/uL 0.00-0.03 [facility] Platelet mean volume Auto (B ld) [Entitic vol]on 01-09-2024 Platelet mean volume (Bld) [Entitic vol] 10.5 fL 9.5-13.5 [facility] Platelets Auto (Bld) [#/Vol] on 01-09-2024 Platelets (Bld) [#/Vol] 227 10 3/uL 150-450 [facility] RBC Auto (Bld) [#/Vol]on RBC (Bld) [#/Vol] 3.69 10 6/uL 4.20-5.40 [facility] Serum or plasma albumin/glob ulin mass ratioon 01-09-2024 Albumin/Globulin [Mass ratio] 1.1 {ratio} [facility] Serum or plasma anion gap de terminationon 01-09-2024 Anion gap [Moles/Vol] 13.2 mmol/L [facility] Serum or plasma total choles terol/high density lipoprotein (HDL) cholesterol mass cris 01-09-2024 Cholesterol.total/Ch olesterol in HDL [Mass ratio] 4.6 {ratio} [facility] Comment on above: 3.3 - 4.4 LOW RISK4. 4 - 7.1 AVERAGE RISK7.1 - 11.0 MODERATE RISK>11.0 HIGH RISK Office Visiton 10-31-2023 Follow-up visit [id number] Kasey Sanchez 1960 F Date Provider Department Center 10/31/2023 PAT BRIDGES Family History Problem Relation Age of Onset Stroke Mother Hyperlipidemia Mother Aortic aneurysm Father Family Status - Relation Status Age at Mother Father Level of Service:69119 [place] OFFICE/OUTPATIENT ESTABLISHED MOD MDM 30 MIN Normal [facility] Office Visiton 09-12-2023 Follow-up visit [id number] Kasey Sanchez 1960 F Date Provider Department Center 09/12/2023 PAT BRIDGES Family History Problem Relation Age of Onset Stroke Mother Hyperlipidemia Mother Aortic aneurysm Father Family Status - Relation Status Age at Mother Father Level of Service:90395 [place] OFFICE/OUTPATIENT ESTABLISHED MOD MDM 30 MIN Normal [facility] Office Visiton 02-07-2023 Follow-up visit [id number] Kasey Sanchez 1960 F Date Provider Department Center 02/07/2023 PAT BRIDGES Family History Problem Relation Age of Onset Stroke Mother Hyperlipidemia Mother Aortic aneurysm Father Family Status - Relation Status Age at Mother Father Level of Service:18457 [place] OFFICE/OUTPATIENT ESTABLISHED LOW MDM 20-29 MIN Reason for Visit and Comments: Hyperlipidemia [182] SVT [Other] Normal [facility] MG MAMM SCREEN 3D TITI CADon 12-29-2022 MG MAMM SCREEN 3D TITI CAD Patient: KASEY SANCHEZ Exam Date: 12/29/2022 : 1960 Gender:F Ordering : DR SARAH JANSEN M.D. Admission #: [id number] Family : Order #: [id number] CLICK HERE TO VIEW EXAM RADIOLOGY REPORT [...] bone cancer at age 80. LOCATION: [facility] BREAST COMPOSITION: Heterogeneously dense,which may obscure small [...] MD on 01/01/2023 at 09:51 Normal [facility] CBC AUTO DIFFon 12-08-2022 BASO # 0.1 103/ul Normal 0.0-0.1 [facility] Comment on above: Performed By: #### C BC #### [facility] [address] [address] [address] Dony Munoz Basophils/100 WBC (Bld) 0.9 % Normal 0.2-2.0 [facility] Comment on above: Performed By: #### C BC #### [facility] [address] [place], [place] [address] Dr. Dony Munoz EO # 0.1 103/ul Normal 0.0-0.7 [facility] Comment on above: Performed By: #### C BC #### [facility] [address] [place] [address] Dr. Dony Munoz Eosinophils/100 WBC (Bld) 1.9 % Normal 0.9-7.0 [facility] Comment on above: Performed By: #### C BC #### [facility] [address] [place] [address] Dr. Dony Munoz Erythrocyte distribution width (RBC) [Ratio] 13.0 % Normal 11.0-15.0 [facility] Comment on above: Performed By: #### C BC #### [facility] [address] [place] [address] Dr. Dony Munoz Hematocrit (Bld) [Volume fraction] 35.5 % Critically low 36.0-48.0 [facility] Comment on above: Performed By: #### C BC #### [facility] [address] [place] [address] Dr. Dony Munoz Hemoglobin (Bld) [Mass/Vol] 11.7 g/dL Critically low 12.0-16.0 [facility] Comment on above: Performed By: #### C BC #### [facility] [address] [place] [address] Dr. Dony Munoz IG # 0.04 10e3/ul Critically high 0.00-0.03 [facility] Comment on above: Performed By: #### C BC #### [facility] [address] [place] [address] Dr. Dony Munoz IG % 0.6 % Critically high 0.0-0.5 [facility] Comment on above: Performed By: #### C BC #### [facility] [address] [place] [address] Dr. Dony Munoz LYMPH # 1.8 103/ul Normal 1.2-3.8 [facility] Comment on above: Performed By: #### C BC #### [facility] [address] [place] [address] Dr. Dony Munoz Lymphocytes/100 WBC (Bld) 27.2 % Normal 20.5-60.0 [facility] Comment on above: Performed By: #### C BC #### [facility] [address] [place] [address] Dr. Dony Munoz MANUAL DIFF REQ NO Normal [facility] Comment on above: Performed By: #### C BC #### [facility] [address] [place] [address] Dr. Dony Munoz MCH (RBC) [Entitic mass] 29.5 pg Normal 26.7-34.0 [facility] Comment on above: Performed By: #### C BC #### [facility] [address] [place] [address] Dr. Dony Munoz MCHC (RBC) [Mass/Vol] 33.0 g/dL Normal 29.9-35.2 [facility] Comment on above: Performed By: #### C BC #### [facility] [address] [place] [address] Dr. Dony Munoz MCV (RBC) [Entitic vol] 89.6 fL Normal 81.0-99.0 [facility] Comment on above: Performed By: #### C BC #### [facility] [address] [place] [address] Dr. Dony Munoz MONO # 0.6 103/ul Normal 0.3-0.8 [facility] Comment on above: Performed By: #### C BC #### [facility] [address] [place] [address] Dr. Dony Munoz Monocytes/100 WBC (Bld) 8.3 % Normal 1.7-12.0 [facility] Comment on above: Performed By: #### C BC #### [facility] [address] [place] [address] Dr. Dony Munoz NEUT # 4.1 103/ul Normal 1.4-6.5 [facility] Comment on above: Performed By: #### C BC #### [facility] [address] [place] [address] Dr. Dony Munoz Neutrophils/100 WBC (Bld) 61.1 % Normal 43.0-75.0 [facility] Comment on above: Performed By: #### C BC #### [facility] [address] [address] [address] Dony Munoz Platelet mean volume (Bld) [Entitic vol] 9.9 fL Normal 9.5-13.5 [facility] Comment on above: Performed By: #### C BC #### [facility] [address] [address] [address] Dony Munoz PLT 248 103/ul Normal 150-450 [facility] Comment on above: Performed By: #### C BC #### [facility] [address] [address] [address] Dony Munoz RBC 3.96 106/ul Critically low 4.20-5.40 [facility] Comment on above: Performed By: #### C BC #### [facility] [address] [address] [address] Dony Munoz WBC 6.8 103/ul Normal 4.0-11.0 [facility] Comment on above: Performed By: #### C BC #### [facility] [address] [address] [address] Dony Munoz GLYCOHEMOGLOBIN A1Con 2022 ADA RECOMMENDATION SEE BELOW Normal [facility] Comment on above: Result Comment: ADA RECOMMENDED LIMIT 4.0 - 6.0 ADA THERAPEUTIC TARGET < 7.0 ACTION SUGGESTED > 7.0 Performed By: #### A 1C #### [facility] [address] [address] [address] Dony Munoz Glucose [Mass/Vol] 151 mg/dL Normal [facility] Comment on above: Performed By: #### A 1C #### [facility] [address] [address] [address] Dony Munoz HbA1c (Bld) [Mass fraction] 6.9 % Critically high 4.5-6.2 [facility] Comment on above: Performed By: #### A 1C #### [facility] [address] [address] [address] Dony Munoz LIPID PROFILEon 12-08-2022 CHOL-HDL RATIO NORM SEE BELOW Normal [facility] Comment on above: Result Comment: 3.3 - 4.4 LOW RISK 4.4 - 7.1 AVERAGE RISK 7.1 - 11.0 MODERATE RISK >11.0 HIGH RISK Performed By: #### C MP, LIPID #### [facility] [address] [address] [address] Dony Munoz Cholesterol [Mass/Vol] 172 mg/dL Normal <=200 [facility] Comment on above: Performed By: #### C MP, LIPID #### [facility] [address] [address] [address] Dony Munoz Cholesterol in HDL [Mass/Vol] 47 mg/dL Normal 40-60 [facility] Comment on above: Performed By: #### C MP, LIPID #### [facility] [address] [address] [address] Dony Munoz Cholesterol in LDL [Mass/Vol] 104.2 mg/dL Normal [facility] Comment on above: Performed By: #### C MP, LIPID #### [facility] [address] [address] [address] Dony Munoz Cholesterol.total/Ch olesterol in HDL [Mass ratio] 3.7 {ratio} Normal [facility] Comment on above: Performed By: #### C MP, LIPID #### [facility] [address] [address] [address] Dony Munoz HDL NORMAL > or = 60 mg/dl - LO W CARDIOVASCULAR RISK <40 mg/dl - HIGH CARDIOVASCULAR RISK Normal [facility] Comment on above: Performed By: #### C MP, LIPID #### [facility] [address] [address] [address] Dony Munoz LDL CALC NORMAL SEE BELOW Normal [facility] Comment on above: Result Comment: <100 mg/dl OPTIMAL 100 - 129 mg/dl NEAR OR ABOVE OPTIMAL 130 - 159 mg/dl BORDERLINE HIGH 160 - 189 mg/dl HIGH >190 mg/dl VERY HIGH Performed By: #### C MP, LIPID #### [facility] [address] [address] [address] Dony Munoz Triglyceride [Mass/Vol] 104 mg/dL Normal <=150 [facility] Comment on above: Performed By: #### C MP, LIPID #### [facility] [address] [address] [address] Dony Munoz VLDL CALC 20.8 mg/dL Normal [facility] Comment on above: Performed By: #### C MP, LIPID #### [facility] [address] [address] [address] Dony Munoz PROF 14(COMP METB)on 023 Albumin [Mass/Vol] 4.1 g/dL Normal 3.4-5.0 [facility] Comment on above: Performed By: #### C MP, LIPID ####[facility] [id number] [address]DrAnnabelle Munoz Albumin/Globulin [Mass ratio] 1.2 {ratio} Normal [facility] Comment on above: Performed By: #### C MP, LIPID ####[facility] [id number] [address]Dr. Dony Munoz ALP [Catalytic activity/Vol] 58 U/L Normal 46-116 [facility] Comment on above: Performed By: #### C MP, LIPID ####[facility] [address] [address]DrAnnabelle Munoz ALT [Catalytic activity/Vol] 125 U/L Critically high 14-59 [facility] Comment on above: Performed By: #### C MP, LIPID ####[facility] [id number] [id number] Munoz Anion gap [Moles/Vol] 12.3 mmol/L Normal [facility] Comment on above: Performed By: #### C MP, LIPID ####[facility] [address] [id number]. Dony Munoz AST [Catalytic activity/Vol] 75 U/L Critically high 15-37 [facility] Comment on above: Performed By: #### C MP, LIPID ####[facility] [address] [id number] Munoz Bilirubin [Mass/Vol] 0.5 mg/dL Normal 0.2-1.0 [facility] Comment on above: Performed By: #### C MP, LIPID ####[facility] [address] [address]Dr. Dony Munoz Calcium [Mass/Vol] 9.7 mg/dL Normal 8.5-10.1 [facility] Comment on above: Performed By: #### C MP, LIPID ####[facility] [address] [address]Dr. Dony Munoz Chloride [Moles/Vol] 105 mmol/L Normal 98-107 [facility] Comment on above: Performed By: #### C MP, LIPID ####[facility] [address] [address]Dr. Dony Munoz CO2 [Moles/Vol] 27.9 mmol/L Normal 21.0-32.0 [facility] Comment on above: Performed By: #### C MP, LIPID ####[facility] [id number] [place], [place] [address]Dr. Dony Munoz Creatinine [Mass/Vol] 0.93 mg/dL Normal 0.55-1.02 [facility] Comment on above: Performed By: #### C MP, LIPID ####[facility] [address] [address]Dr. Dony Munoz EGFR-AF NIUEAN >60 Normal >=60 [facility] Comment on above: Performed By: #### C MP, LIPID ####[facility] [address] [address]Dr. Dony Alexander EGFR-NON AF NIUEAN >60 Normal >=60 [facility] Comment on above: Performed By: #### C MP, LIPID ####[facility] [address] [address]Dr. Dony Munoz Globulin (S) [Mass/Vol] 3.5 g/dL Normal [facility] Comment on above: Performed By: #### C MP, LIPID ####[facility] [address] [address]Dr. Dony Munoz Glucose [Mass/Vol] 163 mg/dL Critically high 74-[address] [facility] Comment on above: Performed By: #### C MP, LIPID ####[facility] [address] [address]Dr. Dony Munoz Potassium [Moles/Vol] 4.2 mmol/L Normal 3.5-5.1 [facility] Comment on above: Performed By: #### C MP, LIPID ####[facility] [id number] [address]Dr. Dony Mnuoz Protein [Mass/Vol] 7.6 g/dL Normal 6.4-8.2 [facility] Comment on above: Performed By: #### C MP, LIPID ####[facility] [address] [address]Dr. Dony Munoz Sodium [Moles/Vol] 141 mmol/L Normal 136-145 [facility] Comment on above: Performed By: #### C MP, LIPID ####[facility] [address] [address]Dr. Dony Munoz Urea nitrogen [Mass/Vol] 23.0 mg/dL Critically high 7.0-18.0 [facility] Comment on above: Performed By: #### C MP, LIPID ####[facility] [address] [address]Dr. Dony Munoz Urea nitrogen/Creatinine [Mass ratio] 24.7 mg/mg Normal [facility] Comment on above: Performed By: #### C MP, LIPID ####[facility] [address] [address]Dr. Dony Munoz VIT D 1 25 DIHYDROXYon 07-12 Calcitriol(1,25 di-OH Vit D) 29.6 pg/mL Normal 24.8-81.5 [facility] Comment on above: Performed By: #### V [id number] #### [facility] [address] [address] [address] Dony Munoz CBC AUTO DIFFon 07-10-2022 BASO # 0.1 103/ul Normal 0.0-0.1 [facility] Comment on above: Performed By: #### C BC #### [facility] [address] [address] [address] Dony Munoz Basophils/100 WBC (Bld) 0.7 % Normal 0.2-2.0 [facility] Comment on above: Performed By: #### C BC #### [facility] [address] [address] [address] Dony Munoz EO # 0.2 103/ul Normal 0.0-0.7 [facility] Comment on above: Performed By: #### C BC #### [facility] [address] [address] [address] Dony Munoz Eosinophils/100 WBC (Bld) 2.7 % Normal 0.9-7.0 [facility] Comment on above: Performed By: #### C BC #### [facility] [address] [place] [address] Dr. Dony Munoz Erythrocyte distribution width (RBC) [Ratio] 13.2 % Normal 11.0-15.0 [facility] Comment on above: Performed By: #### C BC #### [facility] [address] [place] [address] Dr. Dony Munoz Hematocrit (Bld) [Volume fraction] 32.3 % Critically low 36.0-48.0 [facility] Comment on above: Performed By: #### C BC #### [facility] [address] [place] [address] Dr. Dony Munoz Hemoglobin (Bld) [Mass/Vol] 10.4 g/dL Critically low 12.0-16.0 [facility] Comment on above: Performed By: #### C BC #### [facility] [address] [place] [address] Dr. Dony Munoz IG # 0.06 10e3/ul Critically high 0.00-0.03 [facility] Comment on above: Performed By: #### C BC #### [facility] [address] [place] [address] Dr. Dony Munoz IG % 0.8 % Critically high 0.0-0.5 [facility] Comment on above: Performed By: #### C BC #### [facility] [address] [place] [address] Dr. Dony Munoz LYMPH # 1.6 103/ul Normal 1.2-3.8 [facility] Comment on above: Performed By: #### C BC #### [facility] [address] [place] [address] Dr. Dony Munoz Lymphocytes/100 WBC (Bld) 21.4 % Normal 20.5-60.0 [facility] Comment on above: Performed By: #### C BC #### [facility] [address] [place] [address] Dr. Dony Munoz MANUAL DIFF REQ NO Normal [facility] Comment on above: Performed By: #### C BC #### [facility] [address] [place] [address] Dr. Dony Munoz MCH (RBC) [Entitic mass] 29.5 pg Normal 26.7-34.0 [facility] Comment on above: Performed By: #### C BC #### [facility] [address] [place] [address] Dr. Dony Mnuoz MCHC (RBC) [Mass/Vol] 32.2 g/dL Normal 29.9-35.2 [facility] Comment on above: Performed By: #### C BC #### [facility] [address] [place] [address] Dr. Dony Munoz MCV (RBC) [Entitic vol] 91.5 fL Normal 81.0-99.0 [facility] Comment on above: Performed By: #### C BC #### [facility] [address] [place] [address] Dr. Dony Munoz MONO # 0.8 103/ul Normal 0.3-0.8 [facility] Comment on above: Performed By: #### C BC #### [facility] [address] [place] [address] Dr. Dony Munoz Monocytes/100 WBC (Bld) 10.6 % Normal 1.7-12.0 [facility] Comment on above: Performed By: #### C BC #### [facility] [address] [address] [address] Dony Munoz NEUT # 4.7 103/ul Normal 1.4-6.5 [facility] Comment on above: Performed By: #### C BC #### [facility] [address] [address] [address] Dony Munoz Neutrophils/100 WBC (Bld) 63.8 % Normal 43.0-75.0 [facility] Comment on above: Performed By: #### C BC #### [facility] [address] [place] [address] Dr. Dony Munoz Platelet mean volume (Bld) [Entitic vol] 10.0 fL Normal 9.5-13.5 [facility] Comment on above: Performed By: #### C BC #### [facility] [address] [place] [address] Dr. Dony Munoz PLT 244 103/ul Normal 150-450 [facility] Comment on above: Performed By: #### C BC #### [facility] [address] [place] [address] Dr. Dony Munoz RBC 3.53 106/ul Critically low 4.20-5.40 [facility] Comment on above: Performed By: #### C BC #### [facility] [address] [place] [address] Dr. Dony Munoz WBC 7.3 103/ul Normal 4.0-11.0 [facility] Comment on above: Performed By: #### C BC #### [facility] [address] [place] [address] Dr. Dony Munoz FERRITINon 07-10-2022 Ferritin [Mass/Vol] 178.0 ng/mL Normal 8.0-252.0 [facility] Comment on above: Performed By: #### F ERR #### [facility] [address] [place] [address] Dr. Dony Munoz GLYCOHEMOGLOBIN A1Con 2021 ADA RECOMMENDATION SEE BELOW Normal [facility] Comment on above: Result Comment: ADA RECOMMENDED LIMIT 4.0 - 6.0 ADA THERAPEUTIC TARGET < 7.0 ACTION SUGGESTED > 7.0 Performed By: #### A 1C #### [facility] [address] [address] [address] Dony Munoz Glucose [Mass/Vol] 140 mg/dL Normal [facility] Comment on above: Performed By: #### A 1C #### [facility] [address] [address] [address] Dony Munoz HbA1c (Bld) [Mass fraction] 6.5 % Critically high 4.5-6.2 [facility] Comment on above: Performed By: #### A 1C #### [facility] [address] [place] [address] Dr. Dony Munoz LIPID PROFILEon 07-10-2022 CHOL-HDL RATIO NORM SEE BELOW Normal [facility] Comment on above: Result Comment: 3.3 - 4.4 LOW RISK 4.4 - 7.1 AVERAGE RISK 7.1 - 11.0 MODERATE RISK >11.0 HIGH RISK Performed By: #### L IPID #### [facility] [address] [place] [address] Dr. Dony Munoz Cholesterol [Mass/Vol] 174 mg/dL Normal <=200 [facility] Comment on above: Performed By: #### L IPID #### [facility] [address] [place] [address] Dr. Dony Munoz Cholesterol in HDL [Mass/Vol] 47 mg/dL Normal 40-60 [facility] Comment on above: Performed By: #### L IPID #### [facility] [address] [place] [address] Dr. Dony Munoz Cholesterol in LDL [Mass/Vol] 104.4 mg/dL Normal [facility] Comment on above: Performed By: #### L IPID #### [facility] [address] [place] [address] Dr. Dnoy Munoz Cholesterol.total/Ch olesterol in HDL [Mass ratio] 3.7 {ratio} Normal [facility] Comment on above: Performed By: #### L IPID #### [facility] [address] [place] [address] Dr. Dony Munoz HDL NORMAL > or = 60 mg/dl - LO W CARDIOVASCULAR RISK <40 mg/dl - HIGH CARDIOVASCULAR RISK Normal [facility] Comment on above: Performed By: #### L IPID #### [facility] [address] [address] [address] Dony Munoz LDL CALC NORMAL SEE BELOW Normal [facility] Comment on above: Result Comment: <100 mg/dl OPTIMAL 100 - 129 mg/dl NEAR OR ABOVE OPTIMAL 130 - 159 mg/dl BORDERLINE HIGH 160 - 189 mg/dl HIGH >190 mg/dl VERY HIGH Performed By: #### L IPID #### [facility] [address] [address] [address] Dony Munoz Triglyceride [Mass/Vol] 113 mg/dL Normal <=150 [facility] Comment on above: Performed By: #### L IPID #### [facility] [address] [address] [address] Dony Munoz VLDL CALC 22.6 mg/dL Normal [facility] Comment on above: Performed By: #### L IPID #### [facility] [address] [address] [address] Dony Munoz XR KUB 1 VIEWon [...] by: NIDHI BOGGS Date: 2022-07-10 07:01 Normal [facility] Vital Signs Date Time Vital Sign Value Performing Clinician Facility 01-18-2024 08:32-0400 Body height 162.56 cm [facility] 01-18-2024 08:32-0400 Body mass index (BMI) [Ratio] 26.9 kg/m2 [facility] 01-18-2024 [id number] Body weight 71.27 kg [facility] 01-18-2024 08:32-0400 Diastolic blood pressure 73 mm[Hg] [facility] 01-18-2024 08:32-0400 Heart rate 50 /min [facility] 01-18-2024 08:32-0400 Systolic blood pressure 143 mm[Hg] [facility] 12-18-2023 15:34-0400 Body height 162.56 cm [facility] 12-18-2023 15:34-0400 Body mass index (BMI) [Ratio] 26.9 kg/m2 [facility] 12-18-2023 15:34-0400 Body weight 71.21 kg [facility] 12-18-2023 15:34-0400 Diastolic blood pressure 69 mm[Hg] [facility] 12-18-2023 15:34-0400 Heart rate 50 /min [facility] 12-18-2023 15:34-0400 Systolic blood pressure 159 mm[Hg] [facility] 08-21-2023 15:45-0500 Body height 162.56 cm Sarah Jansen Other [facility] [employer] Other 08-21-2023 15:45-0500 Body mass index (BMI) [Ratio] 27.7 kg/m2 Sarah Jansen Other [facility] Other 08-21-2023 15:45-0500 Body weight 73.21 kg Sarah Jansen Other [employer] Other 08-21-2023 15:45-0500 Diastolic blood pressure 77 mm[Hg] Sarah Jansen Other [employer] Other 08-21-2023 15:45-0500 Systolic blood pressure 143 mm[Hg] Sarah Jansen Other [employer] Other 12-04-2022 16:30-0400 Body height 162.56 cm Sarah Jansen Other [employer] Other 12-04-2022 16:30-0400 Body mass index (BMI) [Ratio] 27.46 kg/m2 Sarah Jansen Other [employer] Other 12-04-2022 16:30-0400 Body weight 72.58 kg Sarah Jansen Other [employer] Other 12-04-2022 16:30-0400 Diastolic blood pressure 82 mm[Hg] Sarah Jansen Other [employer] Other 12-04-2022 16:30-0400 SaO2% (BldA) [Mass fraction] 98 % Sarah Jansen Other [employer] Other 12-04-2022 16:30-0400 Systolic blood pressure 120 mm[Hg] Sarah Jansen Other [employer] Other Encounters Encounter Date Encounter Type Care Provider Facility Start: 01-30-2024 End: 01-30-2024 ambulatory [facility] Start: 01-18-2024 Patient encounter status MD Sarah Jansen Work Phone: [facility] Start: 01-18-2024 End: 01-18-2024 ambulatory Sarah Jansen Facility:[facility] Start: 01-18-2024 End: 01-18-2024 Departed Referred MD Sarah Jansen Work Phone: [facility] [place] Work Phone: Start: 01-18-2024 End: 01-18-2024 ambulatory MD Sarah Jansen Work Phone: [facility] Work Phone: Start: 01-18-2024 End: 01-18-2024 Encounter for general adult medical examination without abnormal findings MD Sarah Jansen Work Phone: [facility] Start: 01-18-2024 End: 01-18-2024 Patient encounter procedure [facility] Physician [facility] Work Phone: Start: 01-09-2024 Non-patient / Non-visit [facility] Physician [facility] Work Phone: Start: 12-18-2023 End: 12-18-2023 ambulatory [facility] Work Phone: Start: 12-18-2023 End: 12-18-2023 Patient encounter procedure [facility] Physician [facility] Work Phone: Start: 11-30-2023 End: 11-30-2023 ambulatory Sarah Jansen Other [employer] Other Start: 11-30-2023 Telephone encounter Sarah Jansen [facility] Start: 11-30-2023 Non-patient / Non-visit [facility] Physician [facility] Work Phone: Start: [facility] Start: 09-24-2023 End: 09-24-2023 ambulatory Sarah Jansen Other [employer] Other Start: 09-24-2023 Telephone encounter Sarah Jansen [facility] Start: 09-20-2023 Patient encounter procedure [facility] Physician [facility] Start: 09-19-2023 End: 09-19-2023 ambulatory Eliza Galan Other [employer] Other Start: 09-19-2023 Office outpatient vi sit 15 minutes Eliza Galan [facility] Start: 09-18-2023 End: 09-18-2023 ambulatory Sarah Jansen Other [employer] Other Start: 09-18-2023 Telephone encounter Sarah Jansen [facility] Start: 09-13-2023 End: 09-13-2023 ambulatory Sarah Jansen Other [employer] Other Start: 09-13-2023 Telephone encounter Sarah Jansen [facility] Start: 09-12-2023 Telephone encounter Sarah Jansen [facility] Start: 09-12-2023 End: 09-12-2023 ambulatory [facility] [employer] Other Start: 08-21-2023 End: 08-21-2023 ambulatory Sarah Jansen Other [employer] Other Start: 08-21-2023 Office outpatient vi sit 25 minutes Sarah Jansen [facility] Start: 07-24-2023 End: 07-24-2023 ambulatory Sarah Jansen Other [employer] Other Start: 07-24-2023 Telephone encounter Sarah Jansen [facility] Start: 02-07-2023 End: 02-07-2023 ambulatory PAT [facility] Start: 12-29-2022 End: 12-30-2022 ambulatory JEWELL FARMER Facility:[facility] Start: 12-10-2022 Encounter for genera l adult medical examination without abnormal findings DR SARAH JANSEN [facility] Start: 12-08-2022 Telephone encounter Sarah Jansen [facility] Start: 12-08-2022 End: 12-09-[address] SARAH JANSEN [place] [employer] Other Start: 12-08-2022 End: 12-09-2022 Encounter for general adult medical examination without abnormal findings DR SARAH JANSEN Facility:[facility] Start: 12-04-2022 End: 12-04-2022 Departed Referred MD Sarah Jansen Work Phone: [facility] [place] Work Phone: Start: 12-04-2022 End: 12-04-2022 ambulatory MD Sarah Jansen Work Phone: [facility] Work Phone: Start: 12-04-2022 Encounter for genera l adult medical examination without abnormal findings Sarah Jansen [facility] Start: 12-04-2022 Periodic preventive med est patient 40-64yrs Sarah Jansen [facility] Start: 07-10-2022 End: 07-11-[address] SARAH JANSEN Facility:[facility] Start: 07-07-2022 End: 07-08-[address] SARAH JANSEN Facility:[facility] Start: 07-07-[address] SARAH JANSEN Facil ity:[facility] Start: 12-15-2021 Adult health examination Sarah Jansen Other [employer] Other Start: 08-19-2018 End: 08-20-2018 Patient encounter procedure DEFAULT PHYSICIAN Facility:[facility] Start: 07-22-2018 End: 07-23-2018 Patient encounter procedure DEFAULT PHYSICIAN Facility:[facility] Procedures Date Procedure Procedure Detail Performing Clinician Start: 07-15-2015 Screening mammography M natanael Jansen Other Start: 07-14-2014 History and physical examination, administrative Sarah Jansen Other Screening for malign ant neoplasm of breast Sarah Jansen Other Plan of Treatment Date Care Activity Detail Author Start: 01-18-2024 [facility] Start: 12-04-2022 [facility] Comprehensive metabo lic 2000 panel - Serum or Plasma [facility] Human papilloma viru s 16+18+31+33+35+39+45+51+52+56+58 +59+66+68 DNA [Presence] in Cervix by Probe with signal amplification [facility] MG Breast - bilateral Screening [facility] Immunizations Immunization Date Immunization Notes Care Provider Fa cility 05-13-2021 COVID-19 Vaccine Pfi zer - Documentation Purposes Only Sarah Jansen Other [facility] Payers Date Payer Category Payer Self-pay 1960 Unknown [id number] 2.16.8 [id number] 1960 Unknown [id number] 2.16.8 [id number] 1960 Unknown [id number] 2.16.84 [id number] 1960 Unknown [id number] 2.16.84 [id number] 1960 Unknown [id number] 2.16.84 [id number] 1960 Unknown [id number] 2.16.84 [id number] 1960 Unknown [id number] 2.16.84 [id number] 1959 Private Health Insurance EB [id number] Unknown Unknown [id number] 2.16.8 [id number] Social History Date Type Detail Facility Tobacco smoking status NEIS Unknown if ever smoked [facility] Work Phone: Start: 1960 Sex Assigned At Female F [facility] Sex Assigned At Sex Assigned At [facility] Real Time Translation Other Start: 10-09-2018 Tobacco smoking status NHIS Never smoked tobacco (finding) [facility] Medical Equipment Procedure Code Equipment Code Equipment Origin al Text Equipment Identifier Dates Microlet Lancets - Start: 01-01-2023 Blood Sugar Diagnostic (Blood Glucose Test) strip Start: 11-30-2023 Blood Sugar Diagnostic (Blood Glucose Test) strip Start: 11-30-2023 Blood Sugar Diagnostic (Blood Glucose Test) strip Start: 11-30-2023 Clinical Notes 10-30-2014 to 01-30-2024 Note Date & Type Note Facility 01-30-2024 Note [facility] Note Chief Complaint: Patient here for 3 mo follow up chest pain, hypertension, and hyperlipidemia. Had routine labs with lipid panel last month. Says she's had less chest pain since starting Lexapro. This has helped control her stress a lot more. Her list of BP and HR from home look very good. HPI: Kasey Sanchez is a 63 y.o. female With a history of hypertension and dyslipidemia She had been seeing Dr. Brian Durham for many years and is very happy with his care. She saw Pat West CNP at her last visit and was erroneously scheduled to see me today. I am happy to see her. She has been doing well; she denies significant chest pain and states that her episodes have become less since starting Lexapro. She is able to perform activities of daily living without significant pain or difficulty breathing. Pertinently, we have known about her low heart rate for a while; she denies significant lightheadedness, dizziness, or syncope. When she is performing activities such as gardening, her heart rate will increase into the 90s appropriately. She has no orthopnea or paroxysmal internal dyspnea. She has no significant lower extremity edema apart from normal mild swelling at the end of the day. Cardiology ROS: Review of Systems Constitutional: Positive for malaise/fatigue. Cardiovascular: Positive for chest pain (1 episode since Oct 2023), leg swelling (end of day, resolves by morning) and palpitations (1 episode since Oct 2023). Musculoskeletal: Positive for arthritis and joint swelling. Psychiatric/Behavioral: The patient is nervous/anxious. All other systems reviewed and are negative. Past Medical History She has a past medical history of Abnormal ECG, Arrhythmia, Hyperlipidemia, and Hypertension. Surgical History She has a past surgical history that includes Tonsillectomy; Cholecystectomy; Kidney stone surgery; and Hernia repair. Social History She reports that she has never smoked. She has never used smokeless tobacco. She reports current alcohol use. No history on file for drug use. Family History Family History Problem Relation Name Age of Onset Stroke Mother Hyperlipidemia Mother Aortic aneurysm Father Allergies Penicillins Medications Current Outpatient Medications: atorvastatin (Lipitor) 10 mg tablet, TAKE 1 TABLET BY MOUTH EVERY DAY, Disp: 90 tablet, Rfl: 3 cholecalciferol (Vitamin D3) 10 MCG (400 UNIT) tablet, , Disp: , Rfl: escitalopram (Lexapro) 10 mg tablet, 10 mg 1 (one) time each day., Disp: , Rfl: fenofibrate (Tricor) 145 mg tablet, Take 145 mg by mouth in the morning., Disp: , Rfl: glipiZIDE XL (Glucotrol XL) 2.5 mg 24 hr tablet, Take 2.5 mg by mouth in the morning., Disp: , Rfl: losartan (Cozaar) 50 mg tablet, Take 1 tablet (50 mg) by mouth in the morning., Disp: 90 tablet, Rfl: 3 Last Recorded Vitals BP 146/70 (BP Location: Left arm, Patient Position: Sitting) Pulse (!) 48 Ht 1.626 m (5' 4 ) Wt 71.7 kg (158 lb) SpO2 98% BMI 27.12 kg/m??? Physical Examination: GENERAL: alert and oriented x3, well developed, in no acute distress. HEAD: atraumatic, normocephalic. EYES: JANUSZ, EOMI. NECK: trachea midline, no JVD present, no carotid bruits present. CARDIAC: S1, S2 present. RRR. No murmur, rubs, or gallops. RESPIRATORY: CTAB, no increased effort of breathing, no rales, rhonchi, or wheezing. ABDOMEN: soft, nontender, nondistended. EXTREMITIES: no lower extremity edema, peripheral pulses are 2+ bilaterally. No rash/skin discoloration present. NEURO: strength/sensation equal and symmetric in bilateral upper and lower extremities. PSYCH: appropriate mood, affect, and judgement. Labs: 08/30/23 renal function normal K+ normal [...] minute of recovery, and she had no symp (more content not included)... [facility] 10-31-2023 Note Continue lipitor and tricor- pt to have repeat annual labs with PCP next month [facility] 10-31-2023 Note Hypertension is well controlled at home- this morning B/P was 106/60 Continue losartan [facility] 10-31-2023 Note Currently stable and asymptomati c [facility] 10-31-2023 Note Resolved [facility] 10-31-2023 Note [facility] CARDIOLOGY PROGR ESS NOTE HPI: Kasey Sanchez is a 62 [...] office for lightheadedness/dizzine (more content not included)... [facility] 10-31-2023 Note Patient here for fol low [...] All other systems reviewed and are negative. [facility] 09-19-2023 Evaluation note Encounter Date Diagnosis Assessment [...] in visit was myself, Eliza Galan DNP, ULTRASOUND SPEC, SOLID WASTE MANAGEMENT ENGINEER (provider) and Miriam Simpson, who was the roomer in asking patient pre-visit questions per virtual visit platform. Time spent with patient was approximately 10 minutes. [employer] Other 12-28-2023 Evaluation note* Encounter Date Diagnosis Assessment Notes Treatment Notes Treatment Clinical Notes Aug, Anxiety (ICD-10 - F41.9) [employer] Other [id number] NoteNoted SCALES with excessive exertion States she usually walks the steps- 2 flights at work and does not use elevator. [facility]12-27-2023 NoteCurrently stable. States when PCP started her [...] RTC 6 weeks to review all diagnostic testingUnC[facility]-12-2023 NotePCP has ordered treadmill stress test for ischemic evaluation. I ordered echocardiogram to assess cardiac function, wall motion and valvular function EKG today without acute concerns or ST-T wave changesUnC[facility] Clinic [facility]12-27-2023 NoteHypertension is well controlled at home, white coat syndrome in office. Continue losartanUnC[facility]12-27-2023 NoteLipid abnormalities are slightly elevated LDL at 104- continue heart healthy diet and lifestyle modifications. Continue lipitor 10 mg and tricor.[facility]12-27-2023 NoteUTP CARDIOLOGY PROGRESS NOTE HPI: Kasey Sanchez [...] concerning cardiac symptom (more content not included)... [facility]12-27-2023 NotePatient here for 6 mo follow up [...] nervous/anxious. 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 PCP to monitor liver functionUnC[facility] Clinic [facility]05-24-2023 Note Hypertension is at home is currently well controlled- typically 120-130/60-70 after review of her b/p log. Continue losartan Renal function normalUnC[facility]05-24-2023 NoteStable, no concerning symptomsUnC[facility]05-24-2023 NoteUTP CARDIOLOGY PROGRESS NOTE HPI: Kasey [...] PCP to monitor liver function RTC 1 yearUnC[facility]05-24-2023 NotePatient here for 1 year follow [...] nervous/anxious. All other systems reviewed and are negative.[facility] 12-04-2022 Evaluation note* Encounter Date Diagnosis Assessment [...] check a1C Nov, Fatigue (ICD-10 - R53.83) [employer] Other 02-13-2015 Evaluation note* Diagnosis Onset Date Resolution Status Essential (primary) hypertension October 30, 2014 acute Type 2 diabetes mellitus with hyperglycemia [facility] Work Phone: [phone]) 417-925002-13-2015 Evaluation note* Diagnosis Onset Date Resolution Status Essential (primary) hypertension October 30, 2014 acute Type 2 diabetes mellitus with hyperglycemia acute Essential (primary) hypertension October 30, 2014 acute Type 2 diabetes mellitus with hyperglycemia acute Wellness examination acute [facility] Work Phone: Evaluation noteNo assessment information available [facility] Work Phone: Evaluation noteNo InformationNortWellSpan [facility] Real Time Translation Other History general Narrative - Reported* Type [...] Gallbladder 08/07/2018 Hospitalization History SEE SURGICAL HX [facility] Real Time Translation Other Summary Purpose Family History No Family History Records Found Relationship Condition Age at Onset Recorded Date/T toni father Unknown Advance Directives No Advanced Directives Records Found Advance Directive Response Recorded Date/ Time Advance Directives No December 07, 023 2:36pm Chief Complaint and Reason for Visit Chief Complaint Amb Documentation discussion medications with BS Reason for Visit Essential (primary) hypertension Type 2 diabetes mellitus with hyperglycemia Chief Complaint Amb Documentation discussion medications with BS Wellness/PAP Reason for Visit Essential (primary) hypertension Type 2 diabetes mellitus with hyperglycemia Chief Complaint Amb Documentation discussion medications with BS Wellness/PAP Reason for Visit Essential (primary) hypertension Type 2 diabetes mellitus with hyperglycemia Essential (primary) hypertension Type 2 diabetes mellitus with hyperglycemia Wellness examination Additional Source Comments INFORMATION SOURCE (unrecogn ized section and content) DATE CREATED AUTHOR 08/25/2018 [facility] DATE CREATED AUTHOR AUTHOR'S ORGANIZ ATION 01/04/2023 [facility] DATE CREATED AUTHOR AUTHOR'S ORGANIZ ATION 01/29/2024 [facility] DATE CREATED AUTHOR AUTHOR'S ORGANIZ ATBHUPINDER 02/01/2024 [facility] Care Teams (unrecognized sec tion and content) [...] December 18, 2023 End: December 18, 2023 Team Status: Active Member Role Status Dates Sarah Jansen MD Primary Care Provide r, Attending Provider Active Start: January 09, 2024 Team Status: Inactive Member Role Status Dates Sarah Jansen MD Primary Care Provide r, Attending Provider Active Start: January 18, 2024 End: January 18, 2024 Goals (unrecognized section and content) Goals may be documented in a n alternate sectionNo InformationNo InformationNo InformationNo InformationNo InformationNo InformationNo InformationNo InformationNo InformationNo InformationGoals may be documented in an alternate sectionGoals may be documented in an alternate sectionGoals may be documented in an alternate section [...] BE BASED ON THE PRIMARY CLINICAL RECORDS. [employer] provides no warranty or guarantee of the accuracy or completeness of information in this document.
[2024-02-29 08:52] LABS: Microalbumin Urine Random 1.9 mg/dL (<=30.0)
== END 2024-02-29 07:55 | disposition home or self-care (01) ==
LOC: LAB 07:54
PROVIDERS: PCP Family Medicine; Visit Provider Family Medicine
DX: E11.65 Type 2 diabetes mellitus with hyperglycemia (principal)
CPT/HCPCS: 82043

== ENCOUNTER 2024-06-09 10:38 | Outpatient (OUT) | payer OTHER, SELFPAY ==
--- OUTSIDE RECORDS SUMMARY | 2024-06-09 10:58 | XMS_ITS | CCD ---
Author Organization [facility] Care Team Providers Care Product Handler Name Role Phone PHYSICIAN, DEFAULT Unavailable Unavailable PHYSICIAN, DEFAULT Unavailable Unavailable PHYSICIAN, DEFAULT Unavailable Unavailable PHYSICIAN, DEFAULT Unavailable Unavailable MD Sarah Jansen Attending Provider Sarah Jansen Unavailable INDERJIT, DR SARAH Luque [...] Unavailable JANSEN, DR SARAH Luque Attending Unavailable COLEMAN, JEWELL Nicole Consulting Unavailable JANSEN, DR SARAH Luque Primary Care Unavailable JANSEN, DR SARAH Luque Admitting Unavailable JANSEN, DR SARAH Luque Attending Unavailable JANSEN, DR SARAH Luque Consulting Unavailable JANSEN, DR SARAH Luque Primary Care Unavailable FLAKITA, DR NIDHI Lewis Consulting Unavailable JANSEN, DR SARAH Luque Admitting Unavailable JANSEN, DR SARAH Luque Attending Unavailable JANSEN, DR SARAH Luque Consulting Unavailable Eliza Galan Unavailable [phone] MD Sarah Jansen Primary Care Provider [phone] MD Sarah Jansen Attending Provider [phone] Sarah Jansen Attending Unavailable Sarah Jansen Primary Care Unavailable Sarah Jansen Admitting Unavailable JENNAPAT Patterson Attending Unavailable JENNA, PAT Attending Unavailable JENNA, PAT Attending Unavailable FEMI PINON Attending Unavailable Allergies Allergy Classification Reported Allergen(s) Allergy Type Date of Onset Reaction(s) Facility (10 sources) levoFLOXacin Drug Allergy Unknown [facility] Other (7 sources) Penicillins (Antibiotic) Propensity to adverse reactions Unknown [facility] Other (13 sources) Sulfamethoxazole Drug Allergy 12-18-19 24 Unknown, [facility] (5 sources) Penicillins; Translations: [PENICILLINS] Drug allergy (disorder) 03-10-20 13 Hives [facility] Repository (1 source) Sulfonamides (Antibiotic) Drug allergy (disorder) [facility] Repository (8 sources) Penicillin Drug Allergy 06-20-20 13 Unknown [facility] Other (5 sources) Substance with penicillin structure and antibacterial mechanism of action (substance) Drug allergy Unknown [facility] Other (5 sources) patient allergy list reviewed by nurse or physicia Propensity to adverse reactions 12-09-19 14 Comment:Done [facility] Other (5 sources) Allergies Reconciled Propensity to adverse reactions Unknown [facility] Other (4 sources) levoFLOXacin; Translations: [levofloxacin] Drug Allergy 12-18-19 24 [facility] (1 source) Penicillins Drug allergy (disorder) 01-18-20 24 [facility] Repository (1 source) Sulfamethoxazole Drug Allergy 01-18-20 24 [facility] Rep[facility] Medications Current Medications Medication Drug [...] once daily Active Vit E-Vit C-Beta Carotene [phone] (10 sources) take 200-250 tablets by mouth once daily Vit E-Vit C-Beta Carotene [phone] 1 tablet Orally Once a day Active Completed/Discontinued Medications Medication Drug Class(es) Dates Sig (Normalized) Sig (Original) docusate sodium 100 mg oral capsule (12 sources) Start: 01-16-2024 End: 05-03-2024 take 1 capsule by mouth three times [...] neoplasm of digestive organs; Translations: [FAM 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 Episodic Residual [...] Range Facility Office Visiton 01-30-2024 Follow-up visit [id number] Kasey Sanchez 1960 F Date Provider Department Center 01/30/2024 [id number] PINON [facility] Family History Problem Relation Age of Onset Stroke Mother Hyperlipidemia Mother Aortic aneurysm Father Family Status - Relation Status Age at Mother Father Level of Service:32991 CO OFFICE/OUTPATIENT ESTABLISHED LOW MDM 20 MIN Normal [facility] IGP,Aptima HPV,Age Gdlnon PAP HPV Aptima Negative Normal Negative [facility] Comment on above: Result Comment: This nucleic acid amplification test detects fourteen high- risk HPV types (16,18,31,33,35,39,45,51,52,56,58,59,66,68) without differentiation. Performed at: =[facility] [id number] Security Control Assessor: Laura Bull MD, Phone: [phone] Performed at: [facility] [id number] Security Control Assessor: Laura Bull MD, Phone: [phone] PERFORMED BY: [facility] [address] [place] [address] PATHOLOGIST PSYCHOLOGICAL OPERATIONS OFFICER KAMLA ARCE M.D. Performed By: #### P AP [id number] #### [facility] , Pap Image Guided Note Normal . [facility] Comment on above: Result Comment: TEST S RESULT FLAG UNITS REF RANGE LAB Clinician Provided Cytology Information No. of containers..01 ThinPrep Vial Age Shayla Meier... FLAG LEGEND: L-Low Normal,H-High Normal,LL-Alert Low,HH-Alert High <-Panic Low,>-Panic High,A-Abnormal,AA-Critical Abnormal Performed at: 01 =[address] [facility] [address] Laura Bull MD, Performed By: #### P AP [id number] #### [facility] , Result Comment: TEST S RESULT FLAG UNITS REF RANGE LAB DIAGNOSIS: 02 NEGATIVE FOR INTRAEPITHELIAL LESION OR MALIGNANCY. THIS SPECIMEN WAS RESCREENED PART OF OUR IT APPLICATIONS ANALYST PROGRAM. Specimen adequacy: 02 Satisfactory for evaluation. Endocervical and/or squamous metaplastic cells (endocervical component) are present. Performed by: 02 Leanne Henson, Yellow Pages Space Salesperson ([facility]) QC reviewed by: 02 Michelle Hess, Yellow Pages Space Salesperson . 02 Note: Note 02 The Pap smear is a screening test designed to aid in the detection of premalignant and malignant conditions of the uterine cervix. It is not a diagnostic procedure and should not be used as the sole means of detecting cervical cancer. Both false-positive and false-negative reports do occur. Test Methodology: Note 02 The Thin [employer](R) Preschool Lead Teacher was unable to read this specimen. Therefore a manual review was performed. FLAG LEGEND: L-Low Normal,H-High Normal,LL-Alert Low,HH-Alert High <-Panic Low,>-Panic High,A-Abnormal,AA-Critical Abnormal Performed at: 02 [facility] [address] [address] Laura Bull MD, HPV Genotype Reflex Note 02 Criteria not met, HPV Genotype not performed. Criteria not met, HPV Genotype not performed. Basophils Auto (Bld) [#/Vol] on 01-09-2024 Basophils (Bld) [#/Vol] 0.1 10 3/uL 0.0-0.1 [facility] Basophils/100 WBC Auto (Bld) on 01-09-2024 Basophils/100 WBC (Bld) 1.6 % 0.2-2.0 [facility] Cholesterol in LDL Calc [Mas s/Vol]on 01-09-2024 Cholesterol in LDL [Mass/Vol] 109.0 mg/dL [facility] Comment on above: <100 mg/dl [id number] 0-129 mg/dl NEAR OR ABOVE [id number] mg/dl BORDERLINE [id number] mg/dl HIGH>190 mg/dl VERY HIGH Cholesterol in VLDL Calc [Ma ss/Vol]on 01-09-2024 Cholesterol in VLDL [Mass/Vol] 21.8 mg/dL [facility] Eosinophils/100 WBC Auto (Bl d)on 01-09-2024 Eosinophils/100 WBC (Bld) 2.1 % 0.9-7.0 [facility] Erythrocyte distribution wid th Auto (RBC) [Ratio]on 01-09-2024 Erythrocyte distribution width (RBC) [Ratio] 14.5 % 11.0-15.0 [facility] Estimated glomerular filtrat ion rate (GFR) non- Americanon 01-09-2024 GFR/1.73 sq M.predicted among non-blacks MDRD (S/P/Bld) [Vol rate/Area] 57 mL/min/{1.73_m2} >=60 [facility] Globulin Calc (S) [Mass/Vol] on 01-09-2024 Globulin (S) [Mass/Vol] 3.6 g/dL [facility] Glucose mean value [Mass/vol ume] in Blood Estimated from glycated hemoglobinon 01-09-2024 Average glucose Estimated from glycated hemoglobin (Bld) [Mass/Vol] 148 mg/dL [facility] Hematocrit Auto (Bld) [Volum e fraction]on 01-09-2024 Hematocrit (Bld) [Volume fraction] 34.0 % 36.0-48.0 [facility] Hemoglobin [Mass/volume] in Bloodon 01-09-2024 Hemoglobin (Bld) [Mass/Vol] 10.7 g/dL 12.0-16.0 [facility] Laboratory - Chemistry and C hemistry - challengeon 01-09-2024 Albumin [Mass/Vol] 3.8 g/dL 3.4-5.0 [facility] ALP [Catalytic activity/Vol] 41 U/L 46-116 [facility] ALT [Catalytic activity/Vol] 131 U/L 14-59 [facility] AST [Catalytic activity/Vol] 82 U/L 15-37 [facility] Bilirubin [Mass/Vol] 0.6 mg/dL 0.2-1.0 [facility] Calcium [Mass/Vol] 9.2 mg/dL 8.5-10.1 [facility] Chloride [Moles/Vol] 104 mmol/L 98-107 [facility] Cholesterol [Mass/Vol] 166 mg/dL <=200 [facility] Cholesterol in HDL [Mass/Vol] 36 mg/dL 40-60 [facility] Comment on above: > or =60 mg/dl - LOW CARDIOVASCULAR RISK<40 mg/dl - HIGH CARDIOVASCULAR RISK CO2 [Moles/Vol] 28.6 mmol/L 21.0-32.0 [facility] Creatinine [Mass/Vol] 0.98 mg/dL 0.55-1.02 [facility] GFR/1.73 sq M.predicted MDRD (S/P/Bld) [Vol rate/Area] mL/min/{1.73_m2} >=60 [facility] Glucose [Mass/Vol] 173 mg/dL 74-106 [facility] Potassium [Moles/Vol] 3.8 mmol/L 3.5-5.1 [facility] Protein [Mass/Vol] 7.4 g/dL 6.4-8.2 [facility] Sodium [Moles/Vol] 142 mmol/L 136-145 [facility] Triglyceride [Mass/Vol] 109 mg/dL <=150 [facility] Urea nitrogen [Mass/Vol] 27.0 mg/dL 7.0-18.0 [facility] Urea nitrogen/Creatinine [Mass ratio] 27.6 mg/mg [facility] Laboratory - Hematology and Cell countson 01-09-2024 HbA1c (Bld) [Mass fraction] 6.8 % 4.5-6.2 [facility] Comment on above: ADA RECOMMENDED LIMI T 4.0 - 6.0ADA THERAPEUTIC TARGET < 7.0ACTION SUGGESTED> 7.0 Immature granulocytes/100 WBC (Bld) 0.8 % 0.0-0.5 [facility] Leukocytes [#/volume] correc shamar for nucleated erythrocytes in Blood by Automated counon 01-09-2024 WBC corrected for nucl RBC Auto (Bld) [#/Vol] 6.3 10 3/uL 4.0-11.0 [facility] Lymphocytes Auto (Bld) [#/Vo l]on 01-09-2024 Lymphocytes (Bld) [#/Vol] 1.9 10 3/uL 1.2-3.8 [facility] Lymphocytes/100 WBC Auto (Bl d)on 01-09-2024 Lymphocytes/100 WBC (Bld) 30.0 % 20.5-60.0 [facility] MCH Auto (RBC) [Entitic mass ]on 01-09-2024 MCH (RBC) [Entitic mass] 29.0 pg 26.7-34.0 [facility] MCHC Auto (RBC) [Mass/Vol]on 01-09-2024 MCHC (RBC) [Mass/Vol] 31.5 g/dL 29.9-35.2 [facility] MCV Auto (RBC) [Entitic vol] on 01-09-2024 MCV (RBC) [Entitic vol] 92.1 fL 81.0-99.0 [facility] Monocytes Auto (Bld) [#/Vol] on 01-09-2024 Monocytes (Bld) [#/Vol] 0.6 10 3/uL 0.3-0.8 [facility] Monocytes/100 WBC Auto (Bld) on 01-09-2024 Monocytes/100 WBC (Bld) 8.7 % 1.7-12.0 [facility] Neutrophils Auto (Bld) [#/Vo l]on 01-09-2024 Neutrophils (Bld) [#/Vol] 3.6 10 3/uL 1.4-6.5 [facility] Neutrophils/100 WBC Auto (Bl d)on 01-09-2024 Neutrophils/100 WBC (Bld) 56.8 % 43.0-75.0 [facility] No Panel Informationon 01-08 Eosinophils # (Auto) 0.1 10 3/uL 0.0-0.7 [facility] Immature Granulocyte # (Auto) 0.05 10 3/uL 0.00-0.03 [facility] Platelet mean volume Auto (B ld) [Entitic vol]on 01-09-2024 Platelet mean volume (Bld) [Entitic vol] 10.5 fL 9.5-13.5 [facility] Platelets Auto (Bld) [#/Vol] on 01-09-2024 Platelets (Bld) [#/Vol] 227 10 3/uL 150-450 [facility] RBC Auto (Bld) [#/Vol]on RBC (Bld) [#/Vol] 3.69 10 6/uL 4.20-5.40 [facility] Serum or plasma albumin/glob ulin mass ratioon 01-09-2024 Albumin/Globulin [Mass ratio] 1.1 {ratio} [facility] Serum or plasma anion gap de terminationon 01-09-2024 Anion gap [Moles/Vol] 13.2 mmol/L [facility] Serum or plasma total choles terol/high density lipoprotein (HDL) cholesterol mass cris 01-09-2024 Cholesterol.total/Ch olesterol in HDL [Mass ratio] 4.6 {ratio} [facility] Comment on above: 3.3 - 4.4 LOW RISK4. 4 - 7.1 AVERAGE RISK7.1 - 11.0 MODERATE RISK>11.0 HIGH RISK Office Visiton 10-31-2023 Follow-up visit [id number] Kasey Sanchez Alonzo 1960 F Date Provider Department Center 10/31/2023 PAT BRIDGES Family History Problem Relation Age of Onset Stroke Mother Hyperlipidemia Mother Aortic aneurysm Father Family Status - Relation Status Age at Mother Father Level of Service:46320 CO OFFICE/OUTPATIENT ESTABLISHED MOD MDM 30 MIN Normal [facility] Office Visiton 09-12-2023 Follow-up visit [id number] SanchezKasey L 1960 F Date Provider Department Center 09/12/2023 PAT BRIDGES Family History Problem Relation Age of Onset Stroke Mother Hyperlipidemia Mother Aortic aneurysm Father Family Status - Relation Status Age at Mother Father Level of Service:75558 CO OFFICE/OUTPATIENT ESTABLISHED MOD MDM 30 MIN Normal [facility] Office Visiton 02-07-2023 Follow-up visit [id number] Kasey Sanchez Alonzo 1960 F Date Provider Department Center 02/07/2023 PAT BRIDGES Family History Problem Relation Age of Onset Stroke Mother Hyperlipidemia Mother Aortic aneurysm Father Family Status - Relation Status Age at Mother Father Level of Service:95897 CO OFFICE/OUTPATIENT ESTABLISHED LOW MDM 20-29 MIN Reason for Visit and Comments: Hyperlipidemia [182] SVT [Other] Normal [facility] MG MAMM SCREEN 3D TITI CADon 12-29-2022 MG MAMM SCREEN 3D TITI CAD Patient: KASEY SANCHEZAnnabelle Exam Date: 12/29/2022 : 1960 Gender:F Ordering : DR SARAH JANSEN M.D. Admission #: [id number] Family : Order #: [id number] CLICK HERE TO VIEW EXAM RADIOLOGY REPORT [...] bone cancer at age 80. LOCATION: [facility] BREAST COMPOSITION: Heterogeneously dense,which may obscure small [...] MD on 01/01/2023 at 09:51 Normal [facility] CBC AUTO DIFFon 12-08-2022 BASO # 0.1 103/ul Normal 0.0-0.1 [facility] Comment on above: Performed By: #### C BC #### [facility] [address] [address] [address] Dony Munoz Basophils/100 WBC (Bld) 0.9 % Normal 0.2-2.0 [facility] Comment on above: Performed By: #### C BC #### [facility] [address] [address] [address] Dony Munoz EO # 0.1 103/ul Normal 0.0-0.7 [facility] Comment on above: Performed By: #### C BC #### [facility] [address] [place] [address] Dr. Dony Munoz Eosinophils/100 WBC (Bld) 1.9 % Normal 0.9-7.0 [facility] Comment on above: Performed By: #### C BC #### [facility] [address] [place] [address] Dr. Dony Munoz Erythrocyte distribution width (RBC) [Ratio] 13.0 % Normal 11.0-15.0 [facility] Comment on above: Performed By: #### C BC #### [facility] [address] [place] [address] Dr. Dony Munoz Hematocrit (Bld) [Volume fraction] 35.5 % Critically low 36.0-48.0 [facility] Comment on above: Performed By: #### C BC #### [facility] [address] [place] [address] Dr. Dony Munoz Hemoglobin (Bld) [Mass/Vol] 11.7 g/dL Critically low 12.0-16.0 [facility] Comment on above: Performed By: #### C BC #### [facility] [address] [place] [address] Dr. Dony Munoz IG # 0.04 10e3/ul Critically high 0.00-0.03 [facility] Comment on above: Performed By: #### C BC #### [facility] [address] [place] [address] Dr. Dony Munoz IG % 0.6 % Critically high 0.0-0.5 [facility] Comment on above: Performed By: #### C BC #### [facility] [address] [place] [address] Dr. Dony Munoz LYMPH # 1.8 103/ul Normal 1.2-3.8 [facility] Comment on above: Performed By: #### C BC #### [facility] [address] [place] [address] Dr. Dony Munoz Lymphocytes/100 WBC (Bld) 27.2 % Normal 20.5-60.0 [facility] Comment on above: Performed By: #### C BC #### [facility] [address] [place] [address] Dr. Dony Munoz MANUAL DIFF REQ NO Normal [facility] Comment on above: Performed By: #### C BC #### [facility] [address] [place] [address] Dr. Dony Munoz MCH (RBC) [Entitic mass] 29.5 pg Normal 26.7-34.0 [facility] Comment on above: Performed By: #### C BC #### [facility] [address] [place] [address] Dr. Dony Munoz MCHC (RBC) [Mass/Vol] 33.0 g/dL Normal 29.9-35.2 [facility] Comment on above: Performed By: #### C BC #### [facility] [address] [place] [address] Dr. Dony Munoz MCV (RBC) [Entitic vol] 89.6 fL Normal 81.0-99.0 [facility] Comment on above: Performed By: #### C BC #### [facility] [address] [place] [address] Dr. Dony Munoz MONO # 0.6 103/ul Normal 0.3-0.8 [facility] Comment on above: Performed By: #### C BC #### [facility] [address] [place] [address] Dr. Dony Munoz Monocytes/100 WBC (Bld) 8.3 % Normal 1.7-12.0 [facility] Comment on above: Performed By: #### C BC #### [facility] [address] [place] [address] Dr. Dony Munoz NEUT # 4.1 103/ul Normal 1.4-6.5 [facility] Comment on above: Performed By: #### C BC #### [facility] [address] [place] [address] Dr. Dony Munoz Neutrophils/100 WBC (Bld) 61.1 % Normal 43.0-75.0 [facility] Comment on above: Performed By: #### C BC #### [facility] [address] [address] [address] Dony Munoz Platelet mean volume (Bld) [Entitic vol] 9.9 fL Normal 9.5-13.5 [facility] Comment on above: Performed By: #### C BC #### [facility] [address] [address] [address] Dony Munoz PLT 248 103/ul Normal 150-450 [facility] Comment on above: Performed By: #### C BC #### [facility] [address] [address] [address] Dony Munoz RBC 3.96 106/ul Critically low 4.20-5.40 [facility] Comment on above: Performed By: #### C BC #### [facility] [address] [place] [address] Dr. Dony Munoz WBC 6.8 103/ul Normal 4.0-11.0 [facility] Comment on above: Performed By: #### C BC #### [facility] [address] [place] [address] Dr. Dony Munoz GLYCOHEMOGLOBIN A1Con 2022 ADA RECOMMENDATION SEE BELOW Normal [facility] Comment on above: Result Comment: ADA RECOMMENDED LIMIT 4.0 - 6.0 ADA THERAPEUTIC TARGET < 7.0 ACTION SUGGESTED > 7.0 Performed By: #### A 1C #### [facility] [address] [place] [address] Dr. Dony Munoz Glucose [Mass/Vol] 151 mg/dL Normal [facility] Comment on above: Performed By: #### A 1C #### [facility] [address] [place] [address] Dr. Dony Munoz HbA1c (Bld) [Mass fraction] 6.9 % Critically high 4.5-6.2 [facility] Comment on above: Performed By: #### A 1C #### [facility] [address] [place] [address] Dr. Dony Munoz LIPID PROFILEon 12-08-2022 CHOL-HDL RATIO NORM SEE BELOW Normal [facility] Comment on above: Result Comment: 3.3 - 4.4 LOW RISK 4.4 - 7.1 AVERAGE RISK 7.1 - 11.0 MODERATE RISK >11.0 HIGH RISK Performed By: #### C MP, LIPID #### [facility] [address] [address] [address] Dony Munoz Cholesterol [Mass/Vol] 172 mg/dL Normal <=200 [facility] Comment on above: Performed By: #### C MP, LIPID #### [facility] [address] [address] [address] Dony Munoz Cholesterol in HDL [Mass/Vol] 47 mg/dL Normal 40-60 [facility] Comment on above: Performed By: #### C MP, LIPID #### [facility] [address] [place] [address] Dr. Dony Munoz Cholesterol in LDL [Mass/Vol] 104.2 mg/dL Normal [facility] Comment on above: Performed By: #### C MP, LIPID #### [facility] [address] [place] [address] Dr. Dony Munoz Cholesterol.total/Ch olesterol in HDL [Mass ratio] 3.7 {ratio} Normal [facility] Comment on above: Performed By: #### C MP, LIPID #### [facility] [address] [place] [address] Dr. Dony Munoz HDL NORMAL > or = 60 mg/dl - LO W CARDIOVASCULAR RISK <40 mg/dl - HIGH CARDIOVASCULAR RISK Normal [facility] Comment on above: Performed By: #### C MP, LIPID #### [facility] [address] [place] [address] Dr. Dony Munoz LDL CALC NORMAL SEE BELOW Normal [facility] Comment on above: Result Comment: <100 mg/dl OPTIMAL 100 - 129 mg/dl NEAR OR ABOVE OPTIMAL 130 - 159 mg/dl BORDERLINE HIGH 160 - 189 mg/dl HIGH >190 mg/dl VERY HIGH Performed By: #### C MP, LIPID #### [facility] [address] [place] [address] Dr. Dony Munoz Triglyceride [Mass/Vol] 104 mg/dL Normal <=150 [facility] Comment on above: Performed By: #### C MP, LIPID #### [facility] [address] [place], [place] [address] Dr. Dony Munoz VLDL CALC 20.8 mg/dL Normal [facility] Comment on above: Performed By: #### C MP, LIPID #### [facility] [id number] Dony Munoz PROF 14(COMP METB)on 023 Albumin [Mass/Vol] 4.1 g/dL Normal 3.4-5.0 [facility] Comment on above: Performed By: #### C MP, LIPID ####[facility] [id number] [address]Dr[address] Dony Munoz Albumin/Globulin [Mass ratio] 1.2 {ratio} Normal [facility] Comment on above: Performed By: #### C MP, LIPID ####[facility] [address] [address]Dr. Dony Munoz ALP [Catalytic activity/Vol] 58 U/L Normal 46-116 [facility] Comment on above: Performed By: #### C MP, LIPID ####[facility] [address] [address]Dr. Dony Munoz ALT [Catalytic activity/Vol] 125 U/L Critically high 14-59 [facility] Comment on above: Performed By: #### C MP, LIPID ####[facility] [id number] [address]Dr. Dony Munoz Anion gap [Moles/Vol] 12.3 mmol/L Normal [facility] Comment on above: Performed By: #### C MP, LIPID ####[facility] [address] [address]Dr. Dony Munoz AST [Catalytic activity/Vol] 75 U/L Critically high 15-37 [facility] Comment on above: Performed By: #### C MP, LIPID ####[facility] [address] [address]Dr. Dony Munoz Bilirubin [Mass/Vol] 0.5 mg/dL Normal 0.2-1.0 [facility] Comment on above: Performed By: #### C MP, LIPID ####[facility] [address] [address]Dr. Dony Munoz Calcium [Mass/Vol] 9.7 mg/dL Normal 8.5-10.1 [facility] Comment on above: Performed By: #### C MP, LIPID ####[facility] [address] [address]Dr. Dony Munoz Chloride [Moles/Vol] 105 mmol/L Normal 98-107 [facility] Comment on above: Performed By: #### C MP, LIPID ####[facility] [address] [address]Dr. Dony Munoz CO2 [Moles/Vol] 27.9 mmol/L Normal 21.0-32.0 [facility] Comment on above: Performed By: #### C MP, LIPID ####[facility] [address] [address]Dr. Dony Munoz Creatinine [Mass/Vol] 0.93 mg/dL Normal 0.55-1.02 [facility] Comment on above: Performed By: #### C MP, LIPID ####[facility] [address] [address]Dr. Dony Munoz EGFR-AF TRINIDADIAN >60 Normal >=60 [facility] Comment on above: Performed By: #### C MP, LIPID ####[facility] [id number] [address]Dr. Dony Munoz EGFR-NON AF TRINIDADIAN >60 Normal >=60 [facility] Comment on above: Performed By: #### C MP, LIPID ####[facility] [id number] [id number]. Dony Munoz Globulin (S) [Mass/Vol] 3.5 g/dL Normal [facility] Comment on above: Performed By: #### C MP, LIPID ####[facility] [id number] [address]Dr. Dony Munoz Glucose [Mass/Vol] 163 mg/dL Critically high 74-106 [facility] Comment on above: Performed By: #### C MP, LIPID ####[facility] [address] [address]Dr. Dony Munoz Potassium [Moles/Vol] 4.2 mmol/L Normal 3.5-5.1 [facility] Comment on above: Performed By: #### C MP, LIPID ####[facility] [address] [address]Dr. Dony Munoz Protein [Mass/Vol] 7.6 g/dL Normal 6.4-8.2 [facility] Comment on above: Performed By: #### C MP, LIPID ####[facility] [id number] [address]Dr. Dony Munoz Sodium [Moles/Vol] 141 mmol/L Normal 136-145 [facility] Comment on above: Performed By: #### C MP, LIPID ####[facility] [id number] [address]Dr. Dony Munoz Urea nitrogen [Mass/Vol] 23.0 mg/dL Critically high 7.0-18.0 [facility] Comment on above: Performed By: #### C MP, LIPID ####[facility] [address] [address]Dr. Dony Munoz Urea nitrogen/Creatinine [Mass ratio] 24.7 mg/mg Normal [facility] Comment on above: Performed By: #### C MP, LIPID ####[facility] [address] [address]Dr. Dony Munoz VIT D 1 25 DIHYDROXYon 07-12 Calcitriol(1,25 di-OH Vit D) 29.6 pg/mL Normal 24.8-81.5 [facility] Comment on above: Performed By: #### V [id number] #### [facility] [address] [place] [address] Dr. Dony Munoz CBC AUTO DIFFon 07-10-2022 BASO # 0.1 103/ul Normal 0.0-0.1 [facility] Comment on above: Performed By: #### C BC #### [facility] [address] [address] [address] Dony Munoz Basophils/100 WBC (Bld) 0.7 % Normal 0.2-2.0 [facility] Comment on above: Performed By: #### C BC #### [facility] [address] [place] [address] Dr. Dony Munoz EO # 0.2 103/ul Normal 0.0-0.7 [facility] Comment on above: Performed By: #### C BC #### [facility] [address] [address] [address] Dony Munoz Eosinophils/100 WBC (Bld) 2.7 % Normal 0.9-7.0 [facility] Comment on above: Performed By: #### C BC #### [facility] [address] [place] [address] Dr. Dony Munoz Erythrocyte distribution width (RBC) [Ratio] 13.2 % Normal 11.0-15.0 [facility] Comment on above: Performed By: #### C BC #### [facility] [address] [place] [address] Dr. Dony Munoz Hematocrit (Bld) [Volume fraction] 32.3 % Critically low 36.0-48.0 [facility] Comment on above: Performed By: #### C BC #### [facility] [address] [place] [address] Dr. Dony Munoz Hemoglobin (Bld) [Mass/Vol] 10.4 g/dL Critically low 12.0-16.0 [facility] Comment on above: Performed By: #### C BC #### [facility] [address] [place] [address] Dr. Dony Munoz IG # 0.06 10e3/ul Critically high 0.00-0.03 [facility] Comment on above: Performed By: #### C BC #### [facility] [address] [place] [address] Dr. Dony Munoz IG % 0.8 % Critically high 0.0-0.5 [facility] Comment on above: Performed By: #### C BC #### [facility] [address] [place] [address] Dr. Dony Munoz LYMPH # 1.6 103/ul Normal 1.2-3.8 [facility] Comment on above: Performed By: #### C BC #### [facility] [address] [place] [address] Dr. Dony Munoz Lymphocytes/100 WBC (Bld) 21.4 % Normal 20.5-60.0 [facility] Comment on above: Performed By: #### C BC #### [facility] [address] [place] [address] Dr. Dony Munoz MANUAL DIFF REQ NO Normal [facility] Comment on above: Performed By: #### C BC #### [facility] [address] [place] [address] Dr. Dony Munoz MCH (RBC) [Entitic mass] 29.5 pg Normal 26.7-34.0 [facility] Comment on above: Performed By: #### C BC #### [facility] [address] [place] [address] Dr. Dony Munoz MCHC (RBC) [Mass/Vol] 32.2 g/dL Normal 29.9-35.2 [facility] Comment on above: Performed By: #### C BC #### [facility] [address] [place] [address] Dr. Dony Munoz MCV (RBC) [Entitic vol] 91.5 fL Normal 81.0-99.0 [facility] Comment on above: Performed By: #### C BC #### [facility] [address] [place] [address] Dr. Dony Munoz MONO # 0.8 103/ul Normal 0.3-0.8 [facility] Comment on above: Performed By: #### C BC #### [facility] [address] [place] [address] Dr. Dony Munoz Monocytes/100 WBC (Bld) 10.6 % Normal 1.7-12.0 [facility] Comment on above: Performed By: #### C BC #### [facility] [address] [place] [address] Dr. Dony Munoz NEUT # 4.7 103/ul Normal 1.4-6.5 [facility] Comment on above: Performed By: #### C BC #### [facility] [address] [place] [address] Dr. Dony Munoz Neutrophils/100 WBC (Bld) 63.8 % Normal 43.0-75.0 [facility] Comment on above: Performed By: #### C BC #### [facility] [address] [place] [address] Dr. Dony Munoz Platelet mean volume (Bld) [Entitic vol] 10.0 fL Normal 9.5-13.5 [facility] Comment on above: Performed By: #### C BC #### [facility] [address] [place] [address] Dr. Dony Munoz PLT 244 103/ul Normal 150-450 [facility] Comment on above: Performed By: #### C BC #### [facility] [address] [place] [address] Dr. Dony Munoz RBC 3.53 106/ul Critically low 4.20-5.40 [facility] Comment on above: Performed By: #### C BC #### [facility] [address] [place] [address] Dr. Dony Munoz WBC 7.3 103/ul Normal 4.0-11.0 [facility] Comment on above: Performed By: #### C BC #### [facility] [address] [place] [address] Dr. Dony Munoz FERRITINon 07-10-2022 Ferritin [Mass/Vol] 178.0 ng/mL Normal 8.0-252.0 [facility] Comment on above: Performed By: #### F ERR #### [facility] [address] [place] [address] Dr. Dony Munoz GLYCOHEMOGLOBIN A1Con 2021 ADA RECOMMENDATION SEE BELOW Normal [facility] Comment on above: Result Comment: ADA RECOMMENDED LIMIT 4.0 - 6.0 ADA THERAPEUTIC TARGET < 7.0 ACTION SUGGESTED > 7.0 Performed By: #### A 1C #### [facility] [address] [address] [address] Dony Munoz Glucose [Mass/Vol] 140 mg/dL Normal [facility] Comment on above: Performed By: #### A 1C #### [facility] [address] [address] [address] Dony Munoz HbA1c (Bld) [Mass fraction] 6.5 % Critically high 4.5-6.2 [facility] Comment on above: Performed By: #### A 1C #### [facility] [address] [place] [address] Dr. Dony Munoz LIPID PROFILEon 07-10-2022 CHOL-HDL RATIO NORM SEE BELOW Normal [facility] Comment on above: Result Comment: 3.3 - 4.4 LOW RISK 4.4 - 7.1 AVERAGE RISK 7.1 - 11.0 MODERATE RISK >11.0 HIGH RISK Performed By: #### L IPID #### [facility] [address] [place] [address] Dr. Dony Munoz Cholesterol [Mass/Vol] 174 mg/dL Normal <=200 [facility] Comment on above: Performed By: #### L IPID #### [facility] [address] [place] [address] Dr. Dony Munoz Cholesterol in HDL [Mass/Vol] 47 mg/dL Normal 40-60 [facility] Comment on above: Performed By: #### L IPID #### [facility] [address] [place] [address] Dr. Dony Munoz Cholesterol in LDL [Mass/Vol] 104.4 mg/dL Normal [facility] Comment on above: Performed By: #### L IPID #### [facility] [address] [place] [address] Dr. Dony Munoz Cholesterol.total/Ch olesterol in HDL [Mass ratio] 3.7 {ratio} Normal [facility] Comment on above: Performed By: #### L IPID #### [facility] [address] [place] [address] Dr. Dony Munoz HDL NORMAL > or = 60 mg/dl - LO W CARDIOVASCULAR RISK <40 mg/dl - HIGH CARDIOVASCULAR RISK Normal [facility] Comment on above: Performed By: #### L IPID #### [facility] [address] [address] [address] Dony Munoz LDL CALC NORMAL SEE BELOW Normal [facility] Comment on above: Result Comment: <100 mg/dl OPTIMAL 100 - 129 mg/dl NEAR OR ABOVE OPTIMAL 130 - 159 mg/dl BORDERLINE HIGH 160 - 189 mg/dl HIGH >190 mg/dl VERY HIGH Performed By: #### L IPID #### [facility] [address] [address] [address] Dony Munoz Triglyceride [Mass/Vol] 113 mg/dL Normal <=150 [facility] Comment on above: Performed By: #### L IPID #### [facility] [address] [address] [address] Dony Munoz VLDL CALC 22.6 mg/dL Normal [facility] Comment on above: Performed By: #### L IPID #### [facility] [address] [address] [address] Dony Munoz XR KUB 1 VIEWon [...] by: NIDHI BOGGS Date: 2022-07-10 07:01 Normal [facility] Vital Signs Date Time Vital Sign Value Performing Clinician Facility 01-18-2024 08:32-0400 Body height 162.56 cm [facility] 01-18-2024 08:32-0400 Body mass index (BMI) [Ratio] 26.9 kg/m2 [facility] 01-18-2024 [id number] Body weight 71.27 kg [facility] 01-18-2024 08:32-0400 Diastolic blood pressure 73 mm[Hg] [facility] 01-18-2024 08:32-0400 Heart rate 50 /min [facility] 01-18-2024 08:32-0400 Systolic blood pressure 143 mm[Hg] [facility] 12-18-2023 15:34-0400 Body height 162.56 cm [facility] 12-18-2023 15:34-0400 Body mass index (BMI) [Ratio] 26.9 kg/m2 [facility] 12-18-2023 15:34-0400 Body weight 71.21 kg [facility] 12-18-2023 15:34-0400 Diastolic blood pressure 69 mm[Hg] [facility] 12-18-2023 15:34-0400 Heart rate 50 /min [facility] 12-18-2023 15:34-0400 Systolic blood pressure 159 mm[Hg] [facility] 08-21-2023 15:45-0500 Body height 162.56 cm Sarah Jansen Other [facility] [employer] Other 08-21-2023 15:45-0500 Body mass index (BMI) [Ratio] 27.7 kg/m2 Sarah Jansen Other [facility] [employer] Other 08-21-2023 15:45-0500 Body weight 73.21 kg Sarah Jansen Other [employer] Other 08-21-2023 15:45-0500 Diastolic blood pressure 77 mm[Hg] Sarah Jansen Other [employer] Other 08-21-2023 15:45-0500 Systolic blood pressure 143 mm[Hg] Sarah Jansen Other [employer] Other 12-04-2022 16:30-0400 Body height 162.56 cm Sarah Jansen Other [employer] Other 12-04-2022 16:30-0400 Body mass index (BMI) [Ratio] 27.46 kg/m2 Sarah Jansen Other [employer] Other 12-04-2022 16:30-0400 Body weight 72.58 kg Sarah Jansen Other [employer] Other 12-04-2022 16:30-0400 Diastolic blood pressure 82 mm[Hg] Sarah Jansen Other [employer] Other 12-04-2022 16:30-0400 SaO2% (BldA) [Mass fraction] 98 % Sarah Jansen Other [employer] Other 12-04-2022 16:30-0400 Systolic blood pressure 120 mm[Hg] Sarah Jansen Other [employer] Other Encounters Encounter Date Encounter Type Care Provider Facility Start: 01-30-2024 End: 01-30-2024 ambulatory EHAB [facility] Start: 01-18-2024 Patient encounter status MD Sarah Jansen Work Phone: [facility] Start: 01-18-2024 End: 01-18-2024 ambulatory Sarah Jansen Facility:[facility] Start: 01-18-2024 End: 01-18-2024 Departed Referred MD Sarah Jansen Work Phone: [facility] [place] Work Phone: Start: 01-18-2024 End: 01-18-2024 ambulatory MD Sarah Jansen Work Phone: [facility] Work Phone: Start: 01-18-2024 End: 01-18-2024 Encounter for general adult medical examination without abnormal findings MD Sarah Jansen Work Phone: [facility] Start: 01-18-2024 End: 01-18-2024 Patient encounter procedure Replaced By [facility] Work Phone: Start: 01-09-2024 Non-patient / Non-visit Replaced By [facility] Work Phone: Start: 12-18-2023 End: 12-18-2023 ambulatory [facility] Work Phone: Start: 12-18-2023 End: 12-18-2023 Patient encounter procedure Replaced By [facility] Work Phone: Start: 11-30-2023 End: 11-30-2023 ambulatory Sarah Jansen Other [employer] Other Start: 11-30-2023 Telephone encounter Sarah Jansen [facility] Start: 11-30-2023 Non-patient / Non-visit Replaced By [facility] Work Phone: Start: 10-[facility] Start: 09-24-2023 End: 09-24-2023 ambulatory Sarah Jansen Other [employer] Other Start: 09-24-2023 Telephone encounter Sarah Jansen [facility] Start: 09-20-2023 Patient encounter procedure Replaced By [facility] Start: 09-19-2023 End: 09-19-2023 ambulatory Eliza Galan Other [employer] Other Start: 09-19-2023 Office outpatient vi sit 15 minutes Eliza Galan [facility] Start: 09-18-2023 End: 09-18-2023 ambulatory Sarah Jansen Other [employer] Other Start: 09-18-2023 Telephone encounter Sarah Jansen [facility] Start: 09-13-2023 End: 09-13-2023 ambulatory Sarah Jansen Other [employer] Other Start: 09-13-2023 Telephone encounter Sarah Jansen [facility] Start: 09-12-2023 Telephone encounter Sarah Jansen [facility] Start: 09-12-2023 End: 09-12-2023 ambulatory [facility] [employer] Other Start: 08-21-2023 End: 08-21-2023 ambulatory Sarah Jansen Other [employer] Other Start: 08-21-2023 Office outpatient vi sit 25 minutes Sarah Jansen [facility] Start: 07-24-2023 End: 07-24-2023 ambulatory Sarah Jansen Other [employer] Other Start: 07-24-2023 Telephone encounter Sarah Jansen [facility] Start: 02-07-2023 End: 02-07-2023 ambulatory [facility] Start: 12-29-2022 End: 12-30-2022 ambulatory JEWELL FARMER Facility:[facility] Start: 12-10-2022 Encounter for genera l adult medical examination without abnormal findings DR SARAH JANSEN [facility] Start: 12-08-2022 Telephone encounter Sarah Jansen [facility] Start: 12-08-2022 End: 12-09-[address] SARAH JANSEN [facility] Other Start: 12-08-2022 End: 12-09-2022 Encounter for general adult medical examination without abnormal findings DR SARAH JANSEN Facility:[facility] Start: 12-04-2022 End: 12-04-2022 Departed Referred MD Sarah Jansen Work Phone: [facility] Work Phone: Start: 12-04-2022 End: 12-04-2022 ambulatory MD Sarah Jansen Work Phone: [facility] Work Phone: Start: 12-04-2022 Encounter for genera l adult medical examination without abnormal findings Sarah Jansen [facility] Start: 12-04-2022 Periodic preventive med est patient 40-64yrs Sarah Jansen [facility] Start: 07-10-2022 End: 07-11-[address] SARAH JANSEN Facility:[facility] Start: 07-07-2022 End: 07-08-[address] SARAH JANSEN Facility:[facility] Start: 07-07-[address] SARAH JANSEN Facil ity:[facility] Start: 12-15-2021 Adult health examination Sarah Jansen Other [employer] Other Start: 08-19-2018 End: 08-20-2018 Patient encounter procedure DEFAULT PHYSICIAN Facility:[facility] Start: 07-22-2018 End: 07-23-2018 Patient encounter procedure DEFAULT PHYSICIAN Facility:[facility] Procedures Date Procedure Procedure Detail Performing Clinician Start: 07-15-2015 Screening mammography Alan Jansen Other Start: 07-14-2014 History and physical examination, administrative Sarah Jansen Other Screening for malign ant neoplasm of breast Sarah Jansen Other Plan of Treatment Date Care Activity Detail Author Start: 01-18-2024 [facility] Start: 12-04-2022 [facility] Comprehensive metabo lic 2000 panel - Serum or Plasma [facility] Human papilloma viru s 16+18+31+33+35+39+45+51+52+56+58 +59+66+68 DNA [Presence] in Cervix by Probe with signal amplification [facility] MG Breast - bilateral Screening [facility] Immunizations Immunization Date Immunization Notes Care Provider Fa cility 05-13-2021 COVID-19 Vaccine Pfi zer - Documentation Purposes Only Sarah Jansen Other [facility] Payers Date Payer Category Payer Self-pay 1960 Unknown [id number] [id number] 1960 Unknown [id number] 2.16.8 [id number] 1960 Unknown [id number] 2.16.84 [id number] 1960 Unknown [id number] 2.16.84 [id number] 1960 Unknown [id number] 2.16.84 [id number] 1960 Unknown [id number] 2.16.84 [id number] 1960 Unknown [id number] 2.16.84 [id number] 1959 Private Health Insurance EB [id number] Unknown Unknown [id number] 2.16.8 [id number] Social History Date Type Detail Facility Tobacco smoking status OHIS Unknown if ever smoked [facility] Work Phone: Start: 1960 Sex Assigned At Female F [facility] Sex Assigned At Sex Assigned At Bir [facility] [employer] Other Start: 10-09-2018 Tobacco smoking status NHIS Never smoked tobacco (finding) [facility] Medical Equipment Procedure Code Equipment Code Equipment Origin al Text Equipment Identifier Dates Microlet Lancets - Start: 01-01-2023 Blood Sugar Diagnostic (Blood Glucose Test) strip Start: 11-30-2023 Blood Sugar Diagnostic (Blood Glucose Test) strip Start: 11-30-2023 Blood Sugar Diagnostic (Blood Glucose Test) strip Start: 11-30-2023 Clinical Notes 10-30-2014 to 01-30-2024 Note Date & Type Note Facility 01-30-2024 Note [facility] Card[facility] Clinic Note Chief Complaint: Patient here for 3 mo follow up chest pain, hypertension, and hyperlipidemia. Had routine labs with lipid panel last month. Says she's had less chest pain since starting Lexapro. This has helped control her stress a lot more. Her list of BP and HR from home look very good. HPI: Kasey Alonzo Sanchez is a 63 y.o. female With [...] had no symp (more content not included)... [facility] 10-31-2023 Note Continue lipitor and tricor- pt to have repeat annual labs with PCP next month [facility] 10-31-2023 Note Hypertension is well controlled at home- this morning B/P was 106/60 Continue losartan [facility] 10-31-2023 Note Currently stable and asymptomati c [facility] 10-31-2023 Note Resolved [facility] 10-31-2023 Note [facility] CARDIOLOGY PROGR ESS NOTE [...] office for lightheadedness/dizzine (more content not included)... [facility] 10-31-2023 Note Patient here for fol [...] All other systems reviewed and are negative. [facility] 09-19-2023 Evaluation note Encounter Date Diagnosis [...] in visit was myself, Eliza Galan DNP, [employer]ST[employer], [employer] (provider) and Miriam Simpson, who was the roomer in asking patient pre-visit questions per virtual visit platform. Time spent with patient was approximately 10 minutes. [employer] Other 12-28-2023 Evaluation note* Encounter Date Diagnosis Assessment Notes Treatment Notes Treatment Clinical Notes Aug, Anxiety (ICD-10 - F41.9) [employer] Other [id number] NoteNoted SCALES with excessive exertion States she usually walks the steps- 2 flights at work and does not use elevator. [facility]12-27-2023 NoteCurrently stable. States when PCP started [...] RTC 6 weeks to review [facility]-12-2023 NotePCP has ordered treadmill stress test for ischemic evaluation. I ordered echocardiogram to assess cardiac function, wall motion and valvular function EKG today without acute concerns or ST-T wave changesUnKettering Health [facility]12-27-2023 NoteHypertension is well controlled at home, white coat syndrome in office. Continue losartanUnK[facility] Health [facility]12-27-2023 NoteLipid abnormalities are slightly elevated LDL at 104- continue heart healthy diet and lifestyle modifications. Continue lipitor 10 mg and tricor.[facility]12-27-2023 NoteUTP CARDIOLOGY PROGRESS NOTE HPI: Kasey [...] concerning cardiac symptom (more content not included)... [facility]12-27-2023 NotePatient here for 6 mo follow [...] nervous/anxious. 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 PCP to monitor liver functionUnKettering Health [facility]05-24-2023 Note Hypertension is at home is currently well controlled- typically 120-130/60-70 after review of her b/p log. Continue losartan Renal function normalUnKettering Health [facility]05-24-2023 NoteStable, no concerning symptomsCorey Hospital05-24-2023 NoteUTP CARDIOLOGY PROGRESS NOTE HPI: Kasey [...] PCP to monitor liver function RTC 1 yearUnK[facility]05-24-2023 NotePatient here for 1 year follow up [...] nervous/anxious. All other systems reviewed and are negative.[facility] 12-04-2022 Evaluation note* Encounter Date Diagnosis [...] check a1C Nov, Fatigue (ICD-10 - R53.83) [employer] Other 02-13-2015 Evaluation note* Diagnosis Onset Date Resolution Status Essential (primary) hypertension October 30, 2014 acute Type 2 diabetes mellitus with hyperglycemia [facility] Work Phone: [phone]) 694-316902-13-2015 Evaluation note* Diagnosis Onset Date Resolution Status Essential (primary) hypertension October 30, 2014 acute Type 2 diabetes mellitus with hyperglycemia acute Essential (primary) hypertension October 30, 2014 acute Type 2 diabetes mellitus with hyperglycemia acute Wellness examination acute [facility] Work Phone: Evaluation noteNo assessment information available [facility] Work Phone: Evaluation noteNo InformationNortGeisinger St. [facility] [employer] Other History general Narrative - Reported* Type [...] Gallbladder 08/07/2018 Hospitalization History SEE SURGICAL HX [facility] [employer] Other Summary Purpose Family History No Family [...] and content) DATE CREATED AUTHOR 08/25/2018 [facility] DATE CREATED AUTHOR AUTHOR'S ORGANIZ ATION 01/04/2023 [facility] DATE CREATED AUTHOR AUTHOR'S ORGANIZ ATION 01/29/2024 [facility] DATE CREATED AUTHOR AUTHOR'S ORGANIZ ATION 02/01/2024 [facility] Care Teams (unrecognized sec tion and content) [...] BE BASED ON THE PRIMARY CLINICAL RECORDS. [employer] provides no warranty or guarantee of the accuracy or completeness of information in this document.
== END 2024-06-09 10:39 | disposition home or self-care (01) ==
LOC: PST 10:38
PROVIDERS: PCP Family Medicine; Visit Provider Surgery
DX: Z01.818 Encounter for other preprocedural examination (principal); Z80.0 Family history of malignant neoplasm of digestive organs; R13.10 Dysphagia, unspecified

== ENCOUNTER 2024-06-18 06:23 | Day surgery (SDC) | payer OTHER, SELFPAY ==
--- OUTSIDE RECORDS SUMMARY | 2024-06-18 06:27 | XMS_ITS | CCD ---
Author Organization [facility] Care Team Providers Care Beam Worker Name Role Phone PHYSICIAN, DEFAULT Unavailable Unavailable [...] Unavailable JANSEN, DR SARAH Luque Attending Unavailable [place], JEWELL Nicole Consulting Unavailable JANSEN, DR SARAH [...] Unavailable MD Sarah Jansen Primary Care Provider MD Sarah Jansen Attending Provider Sarah Jansen Attending Unavailable Sarah Jansen Primary Care Unavailable Sarah Jansen Admitting Unavailable JENNAPAT Patterson Attending Unavailable JENNA, PAT Attending Unavailable JENNA, PAT Attending Unavailable FEMI PINON Attending Unavailable Allergies Allergy Classification Reported Allergen(s) Allergy Type Date of Onset Reaction(s) Facility (10 sources) levoFLOXacin Drug Allergy Unknown [facility] Other (7 sources) Penicillins (Antibiotic) Propensity to adverse reactions Unknown [facility] Other (13 sources) Sulfamethoxazole Drug Allergy 12-18-19 24 Unknown, [facility] (5 sources) Penicillins; Translations: [PENICILLINS] Drug allergy (disorder) 03-10-20 13 Hives [facility] Repository (1 source) Sulfonamides (Antibiotic) Drug allergy (disorder) [facility] Repository (8 sources) Penicillin Drug Allergy 06-20-20 13 Unknown [facility] Other (5 sources) Substance with penicillin structure and antibacterial mechanism of action (substance) Drug allergy Unknown [facility] Other (5 sources) patient allergy list reviewed by nurse or physicia Propensity to adverse reactions 12-09-19 14 Comment:Done [facility] Other (5 sources) Allergies Reconciled Propensity to adverse reactions Unknown [facility] Other (4 sources) levoFLOXacin; Translations: [levofloxacin] Drug Allergy 12-18-19 24 [facility] (1 source) Penicillins Drug allergy (disorder) 01-18-[address] [facility] Repository (1 source) Sulfamethoxazole Drug Allergy 01-18-[address] 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-04-2023 Episodic Residual [...] Range Facility Office Visiton 01-30-2024 Follow-up visit [id number] Kasey Sanchez 1960 F Date Provider Department Center 01/30/2024 [id number] PINON CARD [facility] Family History Problem Relation Age of Onset Stroke Mother Hyperlipidemia Mother Aortic aneurysm Father Family Status - Relation Status Age at Mother Father Level of Service:94787 [place] OFFICE/OUTPATIENT ESTABLISHED LOW MDM 20 MIN Normal [facility] IGP,Aptima HPV,Age Gdlnon PAP HPV Aptima Negative Normal Negative [facility] Comment on above: Result Comment: This nucleic acid amplification test detects fourteen high- risk HPV types (16,18,31,33,35,39,45,51,52,56,58,59,66,68) without differentiation. Performed at: =[facility] [id number] Vending Service Technician: Laura Bull MD, Phone: [phone] Performed at: [facility] [id number] Vending Service Technician: Laura Bull MD, Phone: [phone] PERFORMED BY: [facility] [address] [place] [address] PATHOLOGIST VALIDATION ANALYST KAMLA ARCE M.D. Performed By: #### P AP [id number] #### [facility] , Pap Image Guided Note Normal . [facility] Comment on above: Result Comment: TEST S RESULT FLAG UNITS REF RANGE LAB Clinician Provided Cytology Information No. of containers..01 ThinPrep Vial Age Shayla Meier... FLAG LEGEND: L-Low Normal,H-High Normal,LL-Alert Low,HH-Alert High <-Panic Low,>-Panic High,A-Abnormal,AA-Critical Abnormal Performed at: 01 =[facility] [id number] Laura Bull MD, Performed By: #### P AP [id number] #### [facility] , Result Comment: TEST S RESULT FLAG UNITS REF RANGE LAB DIAGNOSIS: 02 NEGATIVE FOR INTRAEPITHELIAL LESION OR MALIGNANCY. THIS SPECIMEN WAS RESCREENED PART OF OUR ON SITE CONSTRUCTION SUPERINTENDENT PROGRAM. Specimen adequacy: 02 Satisfactory for evaluation. Endocervical and/or squamous metaplastic cells (endocervical component) are present. Performed by: 02 Leanne Henson, Brine Room Laborer ([facility]) QC reviewed by: 02 Michelle Hess, Brine Room Laborer . 02 Note: Note 02 The Pap smear is a screening test designed to aid in the detection of premalignant and malignant conditions of the uterine cervix. It is not a diagnostic procedure and should not be used as the sole means of detecting cervical cancer. Both false-positive and false-negative reports do occur. Test Methodology: Note 02 The Thin Prep(R) Mannequin Wig Maker was unable to read this specimen. Therefore a manual review was performed. FLAG LEGEND: L-Low Normal,H-High Normal,LL-Alert Low,HH-Alert High <-Panic Low,>-Panic High,A-Abnormal,AA-Critical Abnormal Performed at: 02 [facility] [address] [address] Laura Bull MD, HPV Genotype Reflex Note 02 Criteria not met, HPV Genotype not performed. Criteria not met, HPV Genotype not performed. Basophils Auto (Bld) [#/Vol] on 01-09-2024 Basophils (Bld) [#/Vol] 0.1 10 3/uL 0.0-0.[address] [facility] Basophils/100 WBC Auto (Bld) on 01-09-2024 Basophils/100 WBC (Bld) 1.6 % 0.2-2.[address] [facility] Cholesterol in LDL Calc [Mas s/Vol]on 01-09-2024 Cholesterol in LDL [Mass/Vol] 109.0 mg/dL [facility] Comment on above: <100 mg/dl [id number] 0-129 mg/dl NEAR OR ABOVE [id number] mg/dl BORDERLINE [id number] mg/dl HIGH>190 mg/dl VERY HIGH Cholesterol in VLDL Calc [Ma ss/Vol]on 01-09-2024 Cholesterol in VLDL [Mass/Vol] 21.8 mg/dL [facility] Eosinophils/100 WBC Auto (Bl d)on 01-09-2024 Eosinophils/100 WBC (Bld) 2.1 % 0.9-7.[address] [facility] Erythrocyte distribution wid th Auto (RBC) [Ratio]on 01-09-2024 Erythrocyte distribution width (RBC) [Ratio] 14.5 % 11.0-15.[address] [facility] Estimated glomerular filtrat ion rate (GFR) non- Americanon 01-09-2024 GFR/1.73 sq M.predicted among non-blacks MDRD (S/P/Bld) [Vol rate/Area] 57 mL/min/{1.73_m2} >=[address] [facility] Globulin Calc (S) [Mass/Vol] on 01-09-2024 Globulin (S) [Mass/Vol] 3.6 g/dL [facility] Glucose mean value [Mass/vol ume] in Blood Estimated from glycated hemoglobinon 01-09-2024 Average glucose Estimated from glycated hemoglobin (Bld) [Mass/Vol] 148 mg/dL [facility] Hematocrit Auto (Bld) [Volum e fraction]on 01-09-2024 Hematocrit (Bld) [Volume fraction] 34.0 % 36.0-48.[address] [facility] Hemoglobin [Mass/volume] in Bloodon 01-09-2024 Hemoglobin (Bld) [Mass/Vol] 10.7 g/dL 12.0-16.[address] [facility] Laboratory - Chemistry and C hemistry - challengeon 01-09-2024 Albumin [Mass/Vol] 3.8 g/dL 3.4-5.0 [facility] ALP [Catalytic activity/Vol] 41 U/L 46-[address] [facility] ALT [Catalytic activity/Vol] 131 U/L 14-[address] [facility] AST [Catalytic activity/Vol] 82 U/L 15-[address] [facility] Bilirubin [Mass/Vol] 0.6 mg/dL 0.2-1.0 [facility] Calcium [Mass/Vol] 9.2 mg/dL 8.5-10.1 [facility] Chloride [Moles/Vol] 104 mmol/L 98-107 [facility] Cholesterol [Mass/Vol] 166 mg/dL <=[address] [facility] Cholesterol in HDL [Mass/Vol] 36 mg/dL 40-[address] [facility] Comment on above: > or =60 mg/dl - LOW CARDIOVASCULAR RISK<40 mg/dl - HIGH CARDIOVASCULAR RISK CO2 [Moles/Vol] 28.6 mmol/L 21.0-32.0 [facility] Creatinine [Mass/Vol] 0.98 mg/dL 0.55-1.[address] [facility] GFR/1.73 sq M.predicted MDRD (S/P/Bld) [Vol rate/Area] mL/min/{1.73_m2} >=[address] [facility] Glucose [Mass/Vol] 173 mg/dL 74-106 [facility] Potassium [Moles/Vol] 3.8 mmol/L 3.5-5.[address] [facility] Protein [Mass/Vol] 7.4 g/dL 6.4-8.2 [facility] Sodium [Moles/Vol] 142 mmol/L 136-145 [facility] Triglyceride [Mass/Vol] 109 mg/dL <=[address] [facility] Urea nitrogen [Mass/Vol] 27.0 mg/dL 7.0-18.[address] [facility] Urea nitrogen/Creatinine [Mass ratio] 27.6 mg/mg [facility] Laboratory - Hematology and Cell countson 01-09-2024 HbA1c (Bld) [Mass fraction] 6.8 % 4.5-6.[address] [facility] Comment on above: ADA RECOMMENDED LIMI T 4.0 - 6.0ADA THERAPEUTIC TARGET < 7.0ACTION SUGGESTED> 7.0 Immature granulocytes/100 WBC (Bld) 0.8 % 0.0-0.[address] [facility] Leukocytes [#/volume] correc shamar for nucleated erythrocytes in Blood by Automated counon 01-09-2024 WBC corrected for nucl RBC Auto (Bld) [#/Vol] 6.3 10 3/uL 4.0-11.[address] [facility] Lymphocytes Auto (Bld) [#/Vo l]on 01-09-2024 Lymphocytes (Bld) [#/Vol] 1.9 10 3/uL 1.2-3.[address] [facility] Lymphocytes/100 WBC Auto (Bl d)on 01-09-2024 Lymphocytes/100 WBC (Bld) 30.0 % 20.5-60.[address] [facility] MCH Auto (RBC) [Entitic mass ]on 01-09-2024 MCH (RBC) [Entitic mass] 29.0 pg 26.7-34.[address] [facility] MCHC Auto (RBC) [Mass/Vol]on 01-09-2024 MCHC (RBC) [Mass/Vol] 31.5 g/dL 29.9-35.[address] [facility] MCV Auto (RBC) [Entitic vol] on 01-09-2024 MCV (RBC) [Entitic vol] 92.1 fL 81.0-99.[address] [facility] Monocytes Auto (Bld) [#/Vol] on 01-09-2024 Monocytes (Bld) [#/Vol] 0.6 10 3/uL 0.3-0.[address] [facility] Monocytes/100 WBC Auto (Bld) on 01-09-2024 Monocytes/100 WBC (Bld) 8.7 % 1.7-12.[address] [facility] Neutrophils Auto (Bld) [#/Vo l]on 01-09-2024 Neutrophils (Bld) [#/Vol] 3.6 10 3/uL 1.4-6.[address] [facility] Neutrophils/100 WBC Auto (Bl d)on 01-09-2024 Neutrophils/100 WBC (Bld) 56.8 % 43.0-75.[address] [facility] No Panel Informationon 01-08 Eosinophils # (Auto) 0.1 10 3/uL 0.0-0.7 [facility] Immature Granulocyte # (Auto) 0.05 10 3/uL 0.00-0.[address] [facility] Platelet mean volume Auto (B ld) [Entitic vol]on 01-09-2024 Platelet mean volume (Bld) [Entitic vol] 10.5 fL 9.5-13.[address] [facility] Platelets Auto (Bld) [#/Vol] on 01-09-2024 Platelets (Bld) [#/Vol] 227 10 3/uL 150-[address] [facility] RBC Auto (Bld) [#/Vol]on RBC (Bld) [#/Vol] 3.69 10 6/uL 4.20-5.40 [facility] Serum or plasma albumin/glob ulin mass ratioon 01-09-2024 Albumin/Globulin [Mass ratio] 1.1 {ratio} [facility] Serum or plasma anion gap de terminationon 01-09-2024 Anion gap [Moles/Vol] 13.2 mmol/L [facility] Serum or plasma total choles terol/high density lipoprotein (HDL) cholesterol mass cris 01-09-2024 Cholesterol.total/Ch olesterol in HDL [Mass ratio] 4.6 {ratio} [facility] Comment on above: 3.3 - 4.4 LOW RISK4. 4 - 7.1 AVERAGE RISK7.1 - 11.0 MODERATE RISK>11.0 HIGH RISK Office Visiton 10-31-2023 Follow-up visit [id number] Kasey Sanchez Alonzo 1960 F Date Provider Department Center 10/31/2023 PAT BRIDGES Family History Problem Relation Age of Onset Stroke Mother Hyperlipidemia Mother Aortic aneurysm Father Family Status - Relation Status Age at Mother Father Level of Service:61304 [place] OFFICE/OUTPATIENT ESTABLISHED MOD MDM 30 MIN Normal [facility] Office Visiton 09-12-2023 Follow-up visit [id number] SanchezKasey L 1960 F Date Provider Department Center 09/12/2023 PAT BRIDGES Family History Problem Relation Age of Onset Stroke Mother Hyperlipidemia Mother Aortic aneurysm Father Family Status - Relation Status Age at Mother Father Level of Service:22257 [place] OFFICE/OUTPATIENT ESTABLISHED MOD MDM 30 MIN Normal [facility] Office Visiton 02-07-2023 Follow-up visit [id number] Kasey Sanchez Alonzo 1960 F Date Provider Department Center 02/07/2023 PAT BRIDGES Family History Problem Relation Age of Onset Stroke Mother Hyperlipidemia Mother Aortic aneurysm Father Family Status - Relation Status Age at Mother Father Level of Service:81687 [place] OFFICE/OUTPATIENT ESTABLISHED LOW MDM 20-29 MIN Reason for Visit and Comments: Hyperlipidemia [182] SVT [Other] Normal [facility] MG MAMM SCREEN 3D TITI CADon 12-29-2022 MG MAMM SCREEN 3D TITI CAD Patient: KASEY SANCHEZAnnabelle Exam Date: 12/29/2022 : 1960 Gender:F Ordering : DR SARAH JANSEN M.D. Admission #: [id number] Family : Order #: [id number] CLICK HERE TO VIEW EXAM RADIOLOGY REPORT [...] bone cancer at age 80. LOCATION: [facility] BREAST COMPOSITION: Heterogeneously dense,which may obscure small [...] MD on 01/01/2023 at 09:51 Normal [facility] CBC AUTO DIFFon 12-08-2022 BASO # 0.1 103/ul Normal 0.0-0.1 [facility] Comment on above: Performed By: #### C BC #### [facility] [address] [address] [address] Dony Munoz Basophils/100 WBC (Bld) 0.9 % Normal 0.2-2.0 [facility] Comment on above: Performed By: #### C BC #### [facility] [address] [address] [address] Dony Munoz EO # 0.1 103/ul Normal 0.0-0.7 [facility] Comment on above: Performed By: #### C BC #### [facility] [address] [place] [address] Dr. Dony Munoz Eosinophils/100 WBC (Bld) 1.9 % Normal 0.9-7.0 [facility] Comment on above: Performed By: #### C BC #### [facility] [address] [place] [address] Dr. Dony Munoz Erythrocyte distribution width (RBC) [Ratio] 13.0 % Normal 11.0-15.0 [facility] Comment on above: Performed By: #### C BC #### [facility] [address] [place] [address] Dr. Dony Munoz Hematocrit (Bld) [Volume fraction] 35.5 % Critically low 36.0-48.0 [facility] Comment on above: Performed By: #### C BC #### [facility] [address] [place] [address] Dr. Dony Munoz Hemoglobin (Bld) [Mass/Vol] 11.7 g/dL Critically low 12.0-16.0 [facility] Comment on above: Performed By: #### C BC #### [facility] [address] [place] [address] Dr. Dony Munoz IG # 0.04 10e3/ul Critically high 0.00-0.03 [facility] Comment on above: Performed By: #### C BC #### [facility] [address] [place] [address] Dr. Dony Munoz IG % 0.6 % Critically high 0.0-0.5 [facility] Comment on above: Performed By: #### C BC #### [facility] [address] [place] [address] Dr. Dony Munoz LYMPH # 1.8 103/ul Normal 1.2-3.8 [facility] Comment on above: Performed By: #### C BC #### [facility] [address] [place] [address] Dr. Dony Munoz Lymphocytes/100 WBC (Bld) 27.2 % Normal 20.5-60.0 [facility] Comment on above: Performed By: #### C BC #### [facility] [address] [place] [address] Dr. Dony Munoz MANUAL DIFF REQ NO Normal [facility] Comment on above: Performed By: #### C BC #### [facility] [address] [place] [address] Dr. Dony Munoz MCH (RBC) [Entitic mass] 29.5 pg Normal 26.7-34.0 [facility] Comment on above: Performed By: #### C BC #### [facility] [address] [place] [address] Dr. Dony Munoz MCHC (RBC) [Mass/Vol] 33.0 g/dL Normal 29.9-35.2 [facility] Comment on above: Performed By: #### C BC #### [facility] [address] [place] [address] Dr. Dony Munoz MCV (RBC) [Entitic vol] 89.6 fL Normal 81.0-99.0 [facility] Comment on above: Performed By: #### C BC #### [facility] [address] [place] [address] Dr. Dony Munoz MONO # 0.6 103/ul Normal 0.3-0.8 [facility] Comment on above: Performed By: #### C BC #### [facility] [address] [place] [address] Dr. Dony Munoz Monocytes/100 WBC (Bld) 8.3 % Normal 1.7-12.0 [facility] Comment on above: Performed By: #### C BC #### [facility] [address] [place] [address] Dr. Dony Munoz NEUT # 4.1 103/ul Normal 1.4-6.5 [facility] Comment on above: Performed By: #### C BC #### [facility] [address] [place] [address] Dr. Dony Munoz Neutrophils/100 WBC (Bld) 61.1 % Normal 43.0-75.0 [facility] Comment on above: Performed By: #### C BC #### [facility] [address] [address] [address] Doyn Munoz Platelet mean volume (Bld) [Entitic vol] 9.9 fL Normal 9.5-13.5 [facility] Comment on above: Performed By: #### C BC #### [facility] [address] [address] [address] Dony Munoz PLT 248 103/ul Normal 150-450 [facility] Comment on above: Performed By: #### C BC #### [facility] [address] [address] [address] Dony Munoz RBC 3.96 106/ul Critically low 4.20-5.40 [facility] Comment on above: Performed By: #### C BC #### [facility] [address] [place] [address] Dr. Dony Munoz WBC 6.8 103/ul Normal 4.0-11.0 [facility] Comment on above: Performed By: #### C BC #### [facility] [address] [place] [address] Dr. Dony Munoz GLYCOHEMOGLOBIN A1Con 2022 ADA RECOMMENDATION SEE BELOW Normal [facility] Comment on above: Result Comment: ADA RECOMMENDED LIMIT 4.0 - 6.0 ADA THERAPEUTIC TARGET < 7.0 ACTION SUGGESTED > 7.0 Performed By: #### A 1C #### [facility] [address] [place] [address] Dr. Dony Munoz Glucose [Mass/Vol] 151 mg/dL Normal [facility] Comment on above: Performed By: #### A 1C #### [facility] [address] [place] [address] Dr. Dony Munoz HbA1c (Bld) [Mass fraction] 6.9 % Critically high 4.5-6.2 [facility] Comment on above: Performed By: #### A 1C #### [facility] [address] [place] [address] Dr. Dony Munoz LIPID PROFILEon 12-08-2022 CHOL-HDL RATIO NORM SEE BELOW Normal [facility] Comment on above: Result Comment: 3.3 - 4.4 LOW RISK 4.4 - 7.1 AVERAGE RISK 7.1 - 11.0 MODERATE RISK >11.0 HIGH RISK Performed By: #### C MP, LIPID #### [facility] [address] [address] [address] Dony Munoz Cholesterol [Mass/Vol] 172 mg/dL Normal <=200 [facility] Comment on above: Performed By: #### C MP, LIPID #### [facility] [address] [address] [address] Dony Munoz Cholesterol in HDL [Mass/Vol] 47 mg/dL Normal 40-60 [facility] Comment on above: Performed By: #### C MP, LIPID #### [facility] [address] [place] [address] Dr. Dony Munoz Cholesterol in LDL [Mass/Vol] 104.2 mg/dL Normal [facility] Comment on above: Performed By: #### C MP, LIPID #### [facility] [address] [place] [address] Dr. Dony Munoz Cholesterol.total/Ch olesterol in HDL [Mass ratio] 3.7 {ratio} Normal [facility] Comment on above: Performed By: #### C MP, LIPID #### [facility] [address] [place] [address] Dr. Dony Munoz HDL NORMAL > or = 60 mg/dl - LO W CARDIOVASCULAR RISK <40 mg/dl - HIGH CARDIOVASCULAR RISK Normal [facility] Comment on above: Performed By: #### C MP, LIPID #### [facility] [address] [place] [address] Dr. Dony Munoz LDL CALC NORMAL SEE BELOW Normal [facility] Comment on above: Result Comment: <100 mg/dl OPTIMAL 100 - 129 mg/dl NEAR OR ABOVE OPTIMAL 130 - 159 mg/dl BORDERLINE HIGH 160 - 189 mg/dl HIGH >190 mg/dl VERY HIGH Performed By: #### C MP, LIPID #### [facility] [address] [place] [address] Dr. Dony Munoz Triglyceride [Mass/Vol] 104 mg/dL Normal <=150 [facility] Comment on above: Performed By: #### C MP, LIPID #### [facility] [address] [place], [place] [address] Dr. Dony Munoz VLDL CALC 20.8 mg/dL Normal [facility] Comment on above: Performed By: #### C MP, LIPID #### [facility] [id number] Dony Munoz PROF 14(COMP METB)on 023 Albumin [Mass/Vol] 4.1 g/dL Normal 3.4-5.0 [facility] Comment on above: Performed By: #### C MP, LIPID ####[facility] [id number] [id number]. Dony Munoz Albumin/Globulin [Mass ratio] 1.2 {ratio} Normal [facility] Comment on above: Performed By: #### C MP, LIPID ####[facility] [address] [address]Dr. Dony Munoz ALP [Catalytic activity/Vol] 58 U/L Normal 46-116 [facility] Comment on above: Performed By: #### C MP, LIPID ####[facility] [address] [id number]. Dony Munoz ALT [Catalytic activity/Vol] 125 U/L Critically high 14-59 [facility] Comment on above: Performed By: #### C MP, LIPID ####[facility] [address] [id number]. Dony Munoz Anion gap [Moles/Vol] 12.3 mmol/L Normal [facility] Comment on above: Performed By: #### C MP, LIPID ####[facility] [address] [id number]. Dony Munoz AST [Catalytic activity/Vol] 75 U/L Critically high 15-37 [facility] Comment on above: Performed By: #### C MP, LIPID ####[facility] [address] [id number]. Dony Munoz Bilirubin [Mass/Vol] 0.5 mg/dL Normal 0.2-1.0 [facility] Comment on above: Performed By: #### C MP, LIPID ####[facility] [address] [id number]. Dony Munoz Calcium [Mass/Vol] 9.7 mg/dL Normal 8.5-10.1 [facility] Comment on above: Performed By: #### C MP, LIPID ####[facility] [address] [id number]. Dony Munoz Chloride [Moles/Vol] 105 mmol/L Normal 98-107 [facility] Comment on above: Performed By: #### C MP, LIPID ####[facility] [address] [address]Dr. Dony Munoz CO2 [Moles/Vol] 27.9 mmol/L Normal 21.0-32.0 [facility] Comment on above: Performed By: #### C MP, LIPID ####[facility] [address] [address]Dr. Dony Munoz Creatinine [Mass/Vol] 0.93 mg/dL Normal 0.55-1.02 [facility] Comment on above: Performed By: #### C MP, LIPID ####[facility] [address] [address]Dr. Dony Munoz EGFR-AF DOMINICAN >60 Normal >=60 [facility] Comment on above: Performed By: #### C MP, LIPID ####[facility] [address] [address]Dr. Dony Munoz EGFR-NON AF DOMINICAN >60 Normal >=60 [facility] [facility] Comment on above: Performed By: #### C MP, LIPID ####[facility] [id number] [id number]. Dony Munoz Globulin (S) [Mass/Vol] 3.5 g/dL Normal [facility] Comment on above: Performed By: #### C MP, LIPID ####[facility] [id number] [address]Dr. Dony Munoz Glucose [Mass/Vol] 163 mg/dL Critically high 74-106 [facility] Comment on above: Performed By: #### C MP, LIPID ####[facility] [address] [address]Dr. Dony Munoz Potassium [Moles/Vol] 4.2 mmol/L Normal 3.5-5.1 [facility] Comment on above: Performed By: #### C MP, LIPID ####[facility] [id number] [address]Dr. Dony Munoz Protein [Mass/Vol] 7.6 g/dL Normal 6.4-8.2 [facility] Comment on above: Performed By: #### C MP, LIPID ####[facility] [address] [address]Dr. Dony Munoz Sodium [Moles/Vol] 141 mmol/L Normal 136-145 [facility] Comment on above: Performed By: #### C MP, LIPID ####[facility] [address] [address]Dr. Dony Munoz Urea nitrogen [Mass/Vol] 23.0 mg/dL Critically high 7.0-18.0 [facility] Comment on above: Performed By: #### C MP, LIPID ####[facility] [address] [address]Dr. Dony Munoz Urea nitrogen/Creatinine [Mass ratio] 24.7 mg/mg Normal [facility] Comment on above: Performed By: #### C MP, LIPID ####[facility] [address] [address]Dr. Dony Munoz VIT D 1 25 DIHYDROXYon 07-12 Calcitriol(1,25 di-OH Vit D) 29.6 pg/mL Normal 24.8-81.5 [facility] Comment on above: Performed By: #### V [id number] #### [facility] [address] [place] [address] Dr. Dony Munoz CBC AUTO DIFFon 07-10-2022 BASO # 0.1 103/ul Normal 0.0-0.1 [facility] Comment on above: Performed By: #### C BC #### [facility] [address] [address] [address] Dony Munoz Basophils/100 WBC (Bld) 0.7 % Normal 0.2-2.0 [facility] Comment on above: Performed By: #### C BC #### [facility] [address] [place] [address] Dr. Dony Munoz EO # 0.2 103/ul Normal 0.0-0.7 [facility] Comment on above: Performed By: #### C BC #### [facility] [address] [address] [address] Dony Munoz Eosinophils/100 WBC (Bld) 2.7 % Normal 0.9-7.0 [facility] Comment on above: Performed By: #### C BC #### [facility] [address] [place] [address] Dr. Dony Munoz Erythrocyte distribution width (RBC) [Ratio] 13.2 % Normal 11.0-15.0 [facility] Comment on above: Performed By: #### C BC #### [facility] [address] [place] [address] Dr. Dony Munoz Hematocrit (Bld) [Volume fraction] 32.3 % Critically low 36.0-48.0 [facility] Comment on above: Performed By: #### C BC #### [facility] [address] [place] [address] Dr. Dony Munoz Hemoglobin (Bld) [Mass/Vol] 10.4 g/dL Critically low 12.0-16.0 [facility] Comment on above: Performed By: #### C BC #### [facility] [address] [place] [address] Dr. Dony Munoz IG # 0.06 10e3/ul Critically high 0.00-0.03 [facility] Comment on above: Performed By: #### C BC #### [facility] [address] [place] [address] Dr. Dony Munoz IG % 0.8 % Critically high 0.0-0.5 [facility] Comment on above: Performed By: #### C BC #### [facility] [address] [place] [address] Dr. Dony Munoz LYMPH # 1.6 103/ul Normal 1.2-3.8 [facility] Comment on above: Performed By: #### C BC #### [facility] [address] [place] [address] Dr. Dony Munoz Lymphocytes/100 WBC (Bld) 21.4 % Normal 20.5-60.0 [facility] Comment on above: Performed By: #### C BC #### [facility] [address] [place] [address] Dr. Dony Munoz MANUAL DIFF REQ NO Normal [facility] Comment on above: Performed By: #### C BC #### [facility] [address] [place] [address] Dr. Dony Munoz MCH (RBC) [Entitic mass] 29.5 pg Normal 26.7-34.0 [facility] Comment on above: Performed By: #### C BC #### [facility] [address] [place] [address] Dr. Dony Munoz MCHC (RBC) [Mass/Vol] 32.2 g/dL Normal 29.9-35.2 [facility] Comment on above: Performed By: #### C BC #### [facility] [address] [place] [address] Dr. Dony Munoz MCV (RBC) [Entitic vol] 91.5 fL Normal 81.0-99.0 [facility] Comment on above: Performed By: #### C BC #### [facility] [address] [place] [address] Dr. Dony Munoz MONO # 0.8 103/ul Normal 0.3-0.8 [facility] Comment on above: Performed By: #### C BC #### [facility] [address] [place] [address] Dr. Dony Munoz Monocytes/100 WBC (Bld) 10.6 % Normal 1.7-12.0 [facility] Comment on above: Performed By: #### C BC #### [facility] [address] [place] [address] Dr. Dony Munoz NEUT # 4.7 103/ul Normal 1.4-6.5 [facility] Comment on above: Performed By: #### C BC #### [facility] [address] [place] [address] Dr. Dony Munoz Neutrophils/100 WBC (Bld) 63.8 % Normal 43.0-75.0 [facility] Comment on above: Performed By: #### C BC #### [facility] [address] [place] [address] Dr. Dony Munoz Platelet mean volume (Bld) [Entitic vol] 10.0 fL Normal 9.5-13.5 [facility] Comment on above: Performed By: #### C BC #### [facility] [address] [place] [address] Dr. Dony Munoz PLT 244 103/ul Normal 150-450 [facility] Comment on above: Performed By: #### C BC #### [facility] [address] [place] [address] Dr. Dony Munoz RBC 3.53 106/ul Critically low 4.20-5.40 [facility] Comment on above: Performed By: #### C BC #### [facility] [address] [place] [address] Dr. Dony Munoz WBC 7.3 103/ul Normal 4.0-11.0 [facility] Comment on above: Performed By: #### C BC #### [facility] [address] [place] [address] Dr. Dony Munoz FERRITINon 07-10-2022 Ferritin [Mass/Vol] 178.0 ng/mL Normal 8.0-252.0 [facility] Comment on above: Performed By: #### F ERR #### [facility] [address] [place] [address] Dr. Dony Munoz GLYCOHEMOGLOBIN A1Con 2021 ADA RECOMMENDATION SEE BELOW Normal [facility] Comment on above: Result Comment: ADA RECOMMENDED LIMIT 4.0 - 6.0 ADA THERAPEUTIC TARGET < 7.0 ACTION SUGGESTED > 7.0 Performed By: #### A 1C #### [facility] [address] [address] [address] Dony Munoz Glucose [Mass/Vol] 140 mg/dL Normal [facility] Comment on above: Performed By: #### A 1C #### [facility] [address] [address] [address] Dony Munoz HbA1c (Bld) [Mass fraction] 6.5 % Critically high 4.5-6.2 [facility] Comment on above: Performed By: #### A 1C #### [facility] [address] [place] [address] Dr. Dony Munoz LIPID PROFILEon 07-10-2022 CHOL-HDL RATIO NORM SEE BELOW Normal [facility] Comment on above: Result Comment: 3.3 - 4.4 LOW RISK 4.4 - 7.1 AVERAGE RISK 7.1 - 11.0 MODERATE RISK >11.0 HIGH RISK Performed By: #### L IPID #### [facility] [address] [place] [address] Dr. Dony Munoz Cholesterol [Mass/Vol] 174 mg/dL Normal <=200 [facility] Comment on above: Performed By: #### L IPID #### [facility] [address] [place] [address] Dr. Dony Munoz Cholesterol in HDL [Mass/Vol] 47 mg/dL Normal 40-60 [facility] Comment on above: Performed By: #### L IPID #### [facility] [address] [place] [address] Dr. Dony Munoz Cholesterol in LDL [Mass/Vol] 104.4 mg/dL Normal [facility] Comment on above: Performed By: #### L IPID #### [facility] [address] [place] [address] Dr. Dony Munoz Cholesterol.total/Ch olesterol in HDL [Mass ratio] 3.7 {ratio} Normal [facility] Comment on above: Performed By: #### L IPID #### [facility] [address] [place] [address] Dr. Dony Munoz HDL NORMAL > or = 60 mg/dl - LO W CARDIOVASCULAR RISK <40 mg/dl - HIGH CARDIOVASCULAR RISK Normal [facility] Comment on above: Performed By: #### L IPID #### [facility] [address] [address] [address] Dony Munoz LDL CALC NORMAL SEE BELOW Normal [facility] Comment on above: Result Comment: <100 mg/dl OPTIMAL 100 - 129 mg/dl NEAR OR ABOVE OPTIMAL 130 - 159 mg/dl BORDERLINE HIGH 160 - 189 mg/dl HIGH >190 mg/dl VERY HIGH Performed By: #### L IPID #### [facility] [address] [address] [address] Dony Munoz Triglyceride [Mass/Vol] 113 mg/dL Normal <=150 [facility] Comment on above: Performed By: #### L IPID #### [facility] [address] [address] [address] Dony Munoz VLDL CALC 22.6 mg/dL Normal [facility] Comment on above: Performed By: #### L IPID #### [facility] [address] [address] [address] Dony Munoz XR KUB 1 VIEWon [...] by: NIDHI BOGGS Date: 2022-07-10 07:01 Normal [facility] Vital Signs Date Time Vital Sign Value Performing Clinician Facility 01-18-2024 08:32-0400 Body height 162.56 cm [facility] 01-18-2024 08:32-0400 Body mass index (BMI) [Ratio] 26.9 kg/m2 [facility] 01-18-2024 [id number] Body weight 71.27 kg [facility] 01-18-2024 08:32-0400 Diastolic blood pressure 73 mm[Hg] [facility] 01-18-2024 08:32-0400 Heart rate 50 /min [facility] 01-18-2024 08:32-0400 Systolic blood pressure 143 mm[Hg] [facility] 12-18-2023 15:34-0400 Body height 162.56 cm [facility] 12-18-2023 15:34-0400 Body mass index (BMI) [Ratio] 26.9 kg/m2 [facility] 12-18-2023 15:34-0400 Body weight 71.21 kg [facility] 12-18-2023 15:34-0400 Diastolic blood pressure 69 mm[Hg] [facility] 12-18-2023 15:34-0400 Heart rate 50 /min [facility] 12-18-2023 15:34-0400 Systolic blood pressure 159 mm[Hg] [facility] 08-21-2023 15:45-0500 Body height 162.56 cm Sarah Jansen Other [facility] [email or web address] Other 08-21-2023 15:45-0500 Body mass index (BMI) [Ratio] 27.7 kg/m2 Sarah Jansen Other [employer] [facility] [email or web address] Other 08-21-2023 15:45-0500 Body weight 73.21 kg Sarah Jansen Other [facility] Other 08-21-2023 15:45-0500 Diastolic blood pressure 77 mm[Hg] Sarah Jansen Other [facility] Other 08-21-2023 15:45-0500 Systolic blood pressure 143 mm[Hg] Sarah Jansen Other [facility] Other 12-04-2022 16:30-0400 Body height 162.56 cm Sarah Jansen Other [facility] Other 12-04-2022 16:30-0400 Body mass index (BMI) [Ratio] 27.46 kg/m2 Sarah Jansen Other [facility] Other 12-04-2022 16:30-0400 Body weight 72.58 kg Sarah Jnasen Other [facility] Other 12-04-2022 16:30-0400 Diastolic blood pressure 82 mm[Hg] Sarah Jansen Other [facility] Other 12-04-2022 16:30-0400 SaO2% (BldA) [Mass fraction] 98 % Sarah Jansen Other [facility] Other 12-04-2022 16:30-0400 Systolic blood pressure 120 mm[Hg] Sarah Jansen Other [facility] Other Encounters Encounter Date Encounter Type Care Provider Facility Start: 01-30-2024 End: 01-30-2024 ambulatory EHAB [facility] Start: 01-18-2024 Patient encounter status MD Sarah Jansen Work Phone: [facility] Start: 01-18-2024 End: 01-18-2024 ambulatory Sarah Jansen Facility:[facility] Start: 01-18-2024 End: 01-18-2024 Departed Referred MD Sarah Jansen Work Phone: [facility] Work Phone: Start: 01-18-2024 End: 01-18-2024 ambulatory MD Sarah Jansen Work Phone: [facility] Work Phone: Start: 01-18-2024 End: 01-18-2024 Encounter for general adult medical examination without abnormal findings MD Sarah Jansen Work Phone: [facility] Start: 01-18-2024 End: 01-18-2024 Patient encounter procedure [facility] Work Phone: Start: 01-09-2024 Non-patient / Non-visit [facility] Work Phone: Start: 12-18-2023 End: 12-18-2023 ambulatory [facility] Work Phone: Start: 12-18-2023 End: 12-18-2023 Patient encounter procedure [facility] Work Phone: Start: 11-30-2023 End: 11-30-2023 ambulatory Sarah Jansen Other [facility] Other Start: 11-30-2023 Telephone encounter Sarah Jansen [facility] Start: 11-30-2023 Non-patient / Non-visit [facility] Work Phone: Start: 10-31-[facility] Start: 09-24-2023 End: 09-24-2023 ambulatory Sarah Jansen Other [facility] Other Start: 09-24-2023 Telephone encounter Sarah Jansen [facility] Start: 09-20-2023 Patient encounter procedure [facility] Start: 09-19-2023 End: 09-19-2023 ambulatory Eliza Galan Other [facility] Other Start: 09-19-2023 Office outpatient vi sit 15 minutes Eliza Galan [facility] Start: 09-18-2023 End: 09-18-2023 ambulatory Sarah Jansen Other [facility] Other Start: 09-18-2023 Telephone encounter Sarah Jansen [facility] Start: 09-13-2023 End: 09-13-2023 ambulatory Sarah Jansen Other [facility] Other Start: 09-13-2023 Telephone encounter Sarah Jansen [facility] Start: 09-12-2023 Telephone encounter Sarah Jansen [facility] Start: 09-12-2023 End: 09-12-2023 ambulatory [facility] [email or web address] Other Start: 08-21-2023 End: 08-21-2023 ambulatory Sarah Jansen Other [facility] Other Start: 08-21-2023 Office outpatient vi sit 25 minutes Sarah Jansen [facility] Start: 07-24-2023 End: 07-24-2023 ambulatory Sarah Jansen Other [facility] Other Start: 07-24-2023 Telephone encounter Sarah Jansen [facility] Start: 02-07-2023 End: 02-07-2023 ambulatory [facility] Start: 12-29-2022 End: 12-30-2022 ambulatory JEWELL FARMER Facility:[facility] Start: 12-10-2022 Encounter for genera l adult medical examination without abnormal findings DR SARAH JANSEN [facility] Start: 12-08-2022 Telephone encounter Sarah Jansen [facility] Start: 12-08-2022 End: 12-09-[address] SARAH JANSEN [place] [employer] Other Start: 12-08-2022 End: 12-09-2022 Encounter for general adult medical examination without abnormal findings DR SARAH JANSEN Facility:[facility] Start: 12-04-2022 End: 12-04-2022 Departed Referred MD Sarah Jansen Work Phone: [facility] Work Phone: Start: 12-04-2022 End: 12-04-2022 ambulatory MD Sarah Jansen Work Phone: [facility] Work Phone: Start: 12-04-2022 Encounter for genera l adult medical examination without abnormal findings Sarah Jansen [facility] Start: 12-04-2022 Periodic preventive med est patient 40-64yrs Sarah Jansen [facility] Start: 07-10-2022 End: 07-11-[address] SARAH JANSEN Facility:[facility] Start: 07-07-2022 End: 07-08-[address] SARAH JANSEN Facility:[facility] Start: 07-07-[address] SARAH JANSEN Facil ity:[facility] Start: 12-15-2021 Adult health examination Sarah Jansen Other [facility] Other Start: 08-19-2018 End: 08-20-2018 Patient encounter procedure [facility]YSICIAN [facility] Start: 07-22-2018 End: 07-23-2018 Patient encounter procedure DEFAULT PHYSICIAN [facility] Procedures Date Procedure Procedure Detail Performing Clinician Start: 07-15-2015 Screening mammography Alan Jansen Other Start: 07-14-2014 History and physical examination, administrative Sarah Jansen Other Screening for malign ant neoplasm of breast Sarah Jansen Other Plan of Treatment Date Care Activity Detail Author Start: 01-18-[address] [facility] Start: 12-04-[address] [facility] Comprehensive metabo lic 2000 panel - Serum or Plasma [facility] Human papilloma viru s 16+18+31+33+35+39+45+51+52+56+58 +59+66+68 DNA [Presence] in Cervix by Probe with signal amplification [facility] MG Breast - bilateral Screening [facility] Immunizations Immunization Date Immunization Notes Care Provider Fa cility 05-13-2021 COVID-19 Vaccine Pfi zer - Documentation Purposes Only Sarah Jansen Other [facility] Payers Date Payer Category Payer Self-pay 1960 Unknown [id number] 2.16.8 [id number] 1960 Unknown [id number] 2.16.8 [id number] 1960 Unknown [id number] 2.16.84 [id number] 1960 Unknown [id number] 2.16.84 [id number] 1960 Unknown [id number] 2.16.84 [id number] 1960 Unknown [id number] 2.16.84 [id number] 1960 Unknown [id number] 2.16.84 [id number] 1959 Private Health Insurance EB [id number] Unknown Unknown [id number] 2.16.8 [id number] Social History Date Type Detail Facility Tobacco smoking status PRIS Unknown if ever smoked [facility] Work Phone: Start: 1960 Sex Assigned At Female F [facility] Sex Assigned At Sex Assigned At Bir [facility] [email or web address] Other Start: 10-09-2018 Tobacco smoking status NHIS Never smoked tobacco (finding) [facility] Medical Equipment Procedure Code Equipment Code Equipment Origin al Text Equipment Identifier Dates Microlet Lancets - Start: 01-01-2023 Blood Sugar Diagnostic (Blood Glucose Test) strip Start: 11-30-2023 Blood Sugar Diagnostic (Blood Glucose Test) strip Start: 11-30-2023 Blood Sugar Diagnostic (Blood Glucose Test) strip Start: 11-30-2023 Clinical Notes 10-30-2014 to 01-30-2024 Note Date & Type Note Facility 01-30-2024 Note [facility] Cardiology Clinic Note Chief Complaint: Patient here [...] had no symp (more content not included)... [facility] 10-31-2023 Note Continue lipitor and tricor- pt to have repeat annual labs with PCP next month [facility] 10-31-2023 Note Hypertension is well controlled at home- this morning B/P was 106/60 Continue losartan [facility] 10-31-2023 Note Currently stable and asymptomati c [facility] 10-31-2023 Note Resolved [facility] 10-31-2023 Note [facility] CARDIOLOGY PROGR ESS [...] in leads 2,3, aVF, V4, V5, V6. Mcnamraa treadmill score is 2.3; Risk is moderate [...] office for lightheadedness/dizzine (more content not included)... [facility] 10-31-2023 Note Patient here for fol low [...] All other systems reviewed and are negative. [facility] 09-19-2023 Evaluation note Encounter Date Diagnosis Assessment [...] in visit was myself, Eliza Galan DNP, OIL PROGRAM COMPLIANCE SPECIALIST, SVP GROUP DIRECTOR (provider) and Miriam Simpson, who was the roomer in asking patient pre-visit questions per virtual visit platform. Time spent with patient was approximately 10 minutes. [facility] Other 12-28-2023 Evaluation note* Encounter Date Diagnosis Assessment Notes Treatment Notes Treatment Clinical Notes Aug, Anxiety (ICD-10 - F41.9) [facility] Other [id number] NoteNoted SCALES with excessive exertion States she usually walks the steps- 2 flights at work and does not use elevator. [facility]12-27-2023 NoteCurrently stable. States when PCP started her [...] RTC 6 weeks to review all diagnostic testingUnReg[facility] 09-12-2023 NotePCP has ordered treadmill stress test for ischemic evaluation. I ordered echocardiogram to assess cardiac function, wall motion and valvular function EKG today without acute concerns or ST-T wave changesUnRegional Medical Center12-27-2023 NoteHypertension is well controlled at home, white coat syndrome in office. Continue losartanUnRegional Medical Center12-27-2023 NoteLipid abnormalities are slightly elevated LDL at 104- continue heart healthy diet and lifestyle modifications. Continue lipitor 10 mg and tricor.[facility]12-27-2023 NoteUTP CARDIOLOGY PROGRESS NOTE HPI: Kasey Sanchez [...] concerning cardiac symptom (more content not included)... [facility]12-27-2023 NotePatient here for 6 mo follow up [...] nervous/anxious. 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 PCP to monitor liver functionUnRegional Medical Center05-24-2023 Note Hypertension is at home is currently well controlled- typically 120-130/60-70 after review of her b/p log. Continue losartan Renal function normalUnRegional Medical Center05-24-2023 NoteStable, no concerning symptomsUK [facility]05-24-2023 NoteUTP CARDIOLOGY PROGRESS NOTE HPI: Kasey Sanchez [...] PCP to monitor liver function RTC 1 yearUnRegional Medical Center05-24-2023 NotePatient here for 1 year follow up [...] nervous/anxious. All other systems reviewed and are negative.[facility] 12-04-2022 Evaluation note* Encounter Date Diagnosis Assessment [...] check a1C Nov, Fatigue (ICD-10 - R53.83) [facility] Other 02-13-2015 Evaluation note* Diagnosis Onset Date Resolution Status Essential (primary) hypertension October 30, 2014 acute Type 2 diabetes mellitus with hyperglycemia [facility] Work Phone: 1(792) 413-597402-13-2015 Evaluation note* Diagnosis Onset Date Resolution Status Essential (primary) hypertension October 30, 2014 acute Type 2 diabetes mellitus with hyperglycemia acute Essential (primary) hypertension October 30, 2014 acute Type 2 diabetes mellitus with hyperglycemia acute Wellness examination acute [facility] Work Phone: Evaluation noteNo assessment information available [facility] Work Phone: Evaluation noteNo InformationNortFriends Hospital [email or web address] Other History general Narrative - Reported* Type [...] Gallbladder 08/07/2018 Hospitalization History SEE SURGICAL HX [facility] [email or web address] Other Summary Purpose Family History No Family [...] and content) DATE CREATED AUTHOR 08/25/2018 [facility] DATE CREATED AUTHOR AUTHOR'S ORGANIZ ATION 01/04/2023 [facility] DATE CREATED AUTHOR AUTHOR'S ORGANIZ ATION 01/29/2024 [facility] DATE CREATED AUTHOR AUTHOR'S ORGANIZ ATION 02/01/2024 [facility] Care Teams (unrecognized sec tion and [...] BE BASED ON THE PRIMARY CLINICAL RECORDS. [employer] provides no warranty or guarantee of the accuracy or completeness of information in this document.
[2024-06-18 06:30] VITALS: BMI 26.1
[2024-06-18] MEDS: LACTATED RINGER'S SOLUTION 1,000 ML 50 ML IV (07:06)
--- NOTE | 2024-06-18 07:13 | P.GSPRC_ITS ---
Date of procedure: 06/18/24 Indications for Procedure: Family history of colon cancer in mother Intermittent hematochezia Dysphagia Pre-op diagnosis: Family history of colon cancer in mother; intermittent hematochezia; dyspha Post-op diagnosis: other (Prepyloric gastric ulcer superficial; rule out esophagitis GE junction; diverticulosis sigmoid descending and ascending colon) Procedure: EGD with biopsy and antrum and distal esophagus Colonoscopy Findings: Prepyloric gastric ulcer superficial Diverticulosis Anesthesia: MAC Surgeon: Johnie Gaxiola Procedure Summary: PROCEDURE: The patient was taken to the Endoscopy Suite, placed in the left lateral recumbent position, given IV sedation as above. The Olympus video EGD scope was advanced under direct visualization into the posterior pharynx esophagus stomach through the pylorus into the first second third and fourth portions of the duodenum which were normal. The scope was returned to the stomach and in the prepyloric area there was a small superficial ulcer which was biopsied and hemostasis maintained. No ulcers polyps or tumors were seen. The scope was retroflexed on itself looked in the GE junction which was normal. Scope was slowly withdrawn from the distal esophagus which appeared grossly normal but a random biopsy was taken of the GE junction to rule out esophagitis. There were no obstructive lesions ulcers or polyps or tumors seen in the esophagus which appeared grossly normal. A rectal digital exam was performed. The sphincter tone was found to be normal. No rectal masses were appreciated. The Olympus video colonoscope was advanced under direct visualization to the rectum, sigmoid colon, descending colon, transverse colon and ascending colon to the ileocecal valve. The underside of the valve was seen. Appendiceal lumen was visualized. There was difficulty of the colonoscopy and pressure had to be applied to the abdomen to advance. The scope was slowly withdrawn with air being desufflated as it was withdrawn. No gross tumors, or polyps were seen. She did have scattered diverticulosis modera te in the sigmoid descending and ascending colon medium to large size. The patient tolerated the procedure well and went to the Recovery Area in satisfactory condition. I recommend the patient use a bulk laxative on a regular basis and patient have follow-up colonoscopy in 5 years due to family history of colon cancer. I also recommend patient take Prilosec OTC until biopsy is back. Estimated blood loss (mL): 0 Complications: No Condition: stable Disposition: PACU
[2024-06-18 08:00] VITALS: BP 110/61; PULSE 54; TEMP 36.7; O2SAT 94
[2024-06-18 08:15] VITALS: BP 137/68; PULSE 52; O2SAT 96
[2024-06-18 08:30] VITALS: BP 138/74; PULSE 56; O2SAT 97
[2024-06-19 15:42] LABS: H Pylori Tissue, Urease Negative
== END 2024-06-18 08:38 | disposition home or self-care (01) ==
PROVIDERS: PCP Family Medicine; Visit Provider Surgery
PROC: (CPT 813; principal; 2024-06-18 07:30)
DX: R13.10 Dysphagia, unspecified (principal); Z80.0 Family history of malignant neoplasm of digestive organs; K92.1 Melena; K25.9 Gastric ulcer, unspecified as acute or chronic, without hemorrhage or perforation; K57.30 Diverticulosis of large intestine without perforation or abscess without bleeding; Z90.49 Acquired absence of other specified parts of digestive tract; E78.5 Hyperlipidemia, unspecified; I10 Essential (primary) hypertension; E11.9 Type 2 diabetes mellitus without complications; Z79.84 Long term (current) use of oral hypoglycemic drugs
CPT/HCPCS: 43239; 45378; 87077; 99999; J1100; J2704

== ENCOUNTER 2024-12-04 07:54 | Outpatient (OUT) | payer BC, SELFPAY ==
--- OUTSIDE RECORDS SUMMARY | 2024-12-04 08:07 | XMS_ITS | CCD ---
Author Organization [facility] Care Team Providers Care Hearing Aid Technician Name Role Phone PHYSICIAN, DEFAULT Unavailable Unavailable PHYSICIAN, DEFAULT Unavailable Unavailable PHYSICIAN, DEFAULT Unavailable Unavailable PHYSICIAN, DEFAULT Unavailable Unavailable MD Sarah Jansen Attending Provider [phone] Sarah Jansen Unavailable INDERJIT, DR SARAH Luque [...] Unavailable JANSEN, DR SARAH Luque Attending Unavailable [employer] Unavailable JANSEN, DR SARAH Luque Primary Care Unavailable JANSEN, DR SARAH Luque Admitting Unavailable JANSEN, DR SARAH Luque Attending Unavailable JANSEN, DR SARAH Luque Consulting Unavailable JANSEN, DR SARAH Luque Primary Care Unavailable [facility] NID[facility] Lewis Consulting Unavailable JANSEN, DR SARAH Luque Admitting Unavailable JANSEN, DR SARAH Luque Attending Unavailable JANSEN, DR SARAH Luque Consulting Unavailable Eliza Galan Unavailable [phone] MD Sarah Jansen Primary Care Provider [phone] MD Sarah Jansen Attending Provider MD Sarah Jansen Primary Care Provider [phone] DO Johnie Gaxiola Attending Provider Johnie Gaxiola Admitting Unavailable Sarah Jansen Primary Care Unavailable Johnie Gaxiola Attending Unavailable Sarah Jansen Attending Unavailable Sarah Jansen Primary Care Unavailable Sarah Jansen Admitting Unavailable COOPER LEWIS Attending Unavailable FEMI PINON Attending Unavailable PAT WEST Attending Unavailable Allergies Allergy Classification Reported Allergen(s) Allergy Type Date of Onset Reaction(s) Facility (10 sources) levoFLOXacin Drug Allergy Unknown [facility] Other (7 sources) Penicillins (Antibiotic) Propensity to adverse reactions Unknown [facility] Other (15 sources) Sulfamethoxazole Drug Allergy 12-18-19 24 Unknown, [facility] (7 sources) Penicillins; Translations: [PENICILLINS] Drug allergy (disorder) 03-10-20 13 [facility] Repository Comment on above: Onset Date: 06/20/20 13 (1 source) Sulfonamides (Antibiotic) Drug allergy (disorder) [facility] Repository (8 sources) Penicillin Drug Allergy 06-20-20 13 Unknown [facility] Other (5 sources) Substance with penicillin structure and antibacterial mechanism of action (substance) Drug allergy Unknown [facility] Other (5 sources) patient allergy list reviewed by nurse or physicia Propensity to adverse reactions 12-09-19 14 Comment:[facility] Other (5 sources) Allergies Reconciled Propensity to adverse reactions Unknown [facility] Other (6 sources) levoFLOXacin; Translations: [levofloxacin] Drug Allergy 12-18-19 24 [facility] (1 source) Penicillins Drug allergy (disorder) 01-18-20 24 [facility] Repository (1 source) Sulfamethoxazole Drug Allergy 01-18-20 24 [facility] Repository Medications Current Medications Medication Drug Class(es) Dates Sig (Normalized) Sig (Original) atorvastatin 10 mg oral tablet (20 sources) HMG-CoA Reductase Inhibitor Start: 12-17-2023 take 1 tablet by mouth once daily Atorvastatin 10 mg tablet Active 10 MG PO Daily December 17, 2023 12:00am take 1 tablet by mouth every twe nty-four hours Contour Next Test - (8 sources) Contour Next Renea t - USE TO TEST ONCE A DAY for 90 days Active escitalopram 10 mg oral tablet (15 sources) Serotonin Reuptake Inhibitor Start: 4 End: 4 take 1 tablet by mouth once daily Escitalopram Oxalate 10 mg tablet Active 0 .ROUTE .COMPLEX 90 September 01, 2024 5:33pm TAKE 1 TABLET BY MOUTH EVERY DAY FOR 30 DAYS Start: 12-18-2023 End: 03-04-2024 take 1 tablet by mouth once daily Escitalopram Oxalate (Lexapro) 10 mg tablet Discontinued 10 MG PO Daily December 18, 2023 12:00am March 04, 2024 2:18pm Start: 08-21-2023 take 1 tablet by dayanara th every twenty-four hours Escitalopram Oxalate 10 MG 1 tablet Orally Once a day for 30 day(s) Aug, Active Fenofibrate Nanocrystallized 145 mg tablet (1 source) Start: 08-09-2024 take 1 tablet by mouth once daily Fenofibrate Nanocrystallized 145 mg tablet Active 0 .ROUTE .COMPLEX 90 August 09, 2024 8:10am TAKE 1 TABLET BY MOUTH EVERY DAY glipiZIDE er 2.5 mg 24 hr extended release oral tablet (20 sources) Sulfonylurea Start: 05-23-2024 take 1 tablet by mouth once daily Glipizide Active 0 .ROUTE .COMPLEX 90 May 23, 2024 8:40am TAKE 1 TABLET BY MOUTH EVERY DAY Start: 12-31-2023 End: 11-07-2024 take 1 tablet by mouth once daily Glipizide 2.5 mg tablet extended release 24hr Active 0 .ROUTE .COMPLEX 90 November 07, 2024 4:35pm TAKE 1 TABLET BY MOUTH EVERY DAY Start: 12-31-2023 End: 05-23-2024 take 1 tablet by mouth once daily Glipizide Discontinued 0 .ROUTE .COMPLEX December 31, 2023 11:11am May 23, 2024 8:40am TAKE 1 TABLET BY MOUTH EVERY DAY Start: 12-31-2023 take 1 tablet by dayanara th once daily Glipizide Active 0 .ROUTE .COMPLEX 90 December 31, 2023 11:11am TAKE 1 TABLET BY MOUTH EVERY DAY Start: 12-17-2023 End: 12-31-2023 take 1 tablet by mouth once daily Glipizide 2.5 mg tablet Discontinued 2.5 MG PO Daily December 17, 2023 12:00am December 31, 2023 11:11am take 1 tablet by dayanara th once daily glipiZIDE ER 2.5 MG TAKE 1 TABLET BY MOUTH EVERY DAY for 90 Active Hair Skin Nails (10 sources) losartan potassium 50 mg oral tablet (15 sources) Angiotensin 2 Receptor Noel Start: 12-17-2023 take 1 tablet by mouth once daily Losartan 50 mg tablet Active 50 MG PO Daily December 17, 2023 12:00am take 1 tablet by dayanara th every twenty-four hours Losartan Potassium 50 MG 1 tablet Orally Once a day Active omeprazole 20 mg delayed release oral capsule (1 source) Proton Pump Inhibitor Start: 11-25-2024 take 1 capsule by mouth once daily Omeprazole 20 mg capsule,delayed release(DR/EC) Active 20 MG PO Daily November 25, 2024 12:00am psyllium 400 mg oral capsule (10 sources) Metamucil 0.36 G M as directed Orally Active Metamucil 0.36 G M as directed Orally Active Vit D2 400IU (10 sources) take 1 tablet by dayanara th once daily Vit D2 400IU 1 tab 1000 u orally once daily Active Vit E-Vit C-Beta Carotene [phone] (10 sources) take 200-250 tablets by mouth once daily Vit E-Vit C-Beta Carotene [phone] 1 tablet Orally Once a day Active Completed/Discontinued Medications Medication Drug Class(es) Dates Sig (Normalized) Sig (Original) docusate sodium 100 mg oral capsule (14 sources) Start: 01-16-2024 End: 01-18-2024 take 1 capsule by mouth three times daily take 1 capsule by mouth every ei ght hours ergocalciferol 0.01 mg oral tablet (4 sources) Provitamin D2 Compound Start: 01-16-2024 End: 11-25-2024 take 1 tablet by mouth once daily Ergocalciferol (Vitamin D2) 10 mcg (400 unit) tablet Discontinued 10 MCG PO Daily January 16, 2024 12:00am November 25, 2024 8:40am fenofibrate 145 mg oral tablet (18 sources) Peroxisome Proliferator Receptor alpha Agonist Start: 12-17-2023 End: 08-09-2024 take 1 tablet by mouth once daily Fenofibrate Nanocrystallized 145 mg tablet Discontinued 145 MG PO Daily December 17, 2023 12:00am August 09, 2024 8:10am take 1 tablet by mouth once germaine y Fenofibrate 145 MG TAKE 1 TABLET BY MOUTH EVERY DAY for 90 Active ferrous sulfate 325 mg oral tablet (3 [...] perineal pain] Onset: 01-17-2016 Episodic Anxiety disorders (14 sources) Anxiety; Translations: [Anxiety disorder, unspecified] Chronic Calculus of urinary tract (20 sources) Kidney stone; Translations: [Calculus of kidney] Onset: 07-07-2022 Episodic Cardiac dysrhythmias (20 sources) Bradycardia; Translations: [Bradycardia, unspecified] Onset: 02-07-2023 12-17-2023 Episodic Chronic obstructive pulmonary disease and bronchiectasis (8 sources) Bronchitis; Translations: [Bronchitis, not specified as acute or chronic] Episodic Deficiency and other anemia (20 sources) Iron deficiency anemia; Translations: [Iron deficiency anemia, unspecified] 12-17-2023 Episodic Deficiency and other anemia (5 sources) Iron deficiency anemia secondary to inadequate [...] (8 sources) Dysuria; Translations: [Dysuria] Episodic Hepatitis (16 sources) Nonalcoholic steatohepatitis; Translations: [Nonalcoholic steatohepatitis (SAINI)] 12-17-2023 Chronic Malaise and fatigue (20 sources) Fatigue; Translations: [Other fatigue] Episodic Mood disorders (20 sources) Chronic depression; Translations: [Major depressive disorder, single episode, unspecified] 12-17-2023 Chronic Nonspecific chest pain (17 sources) Chest pain; Translations: [Other chest pain] Onset: 07-11-2018 Episodic Nutritional deficiencies (20 sources) Vitamin D deficiency; Translations: [Vitamin D deficiency, unspecified] Onset: 11-17-2015 Chronic Other and ill-defined heart disease (2 sources) Cardiomegaly; Translations: [Cardiomegaly] Onset: 10-16-2024 Chronic Other circulatory disease (8 sources) Elevated [...] Spondylosis; intervertebral disc disorders; other back problems (13 sources) Low back pain; Translations: [Low back [...] Value Interpretation Reference Range Facility Office Visiton 10-16-2024 Follow-up visit [id number] Kasey Sanchez 1960 F Date Provider Department Center 10/16/2024 COOPER MCNEAL MARCUS Pantoja [facility] Family History Problem Relation Age of Onset Stroke Mother Hyperlipidemia Mother Aortic aneurysm Father Family Status - Relation Status Age at Mother Father Level of Service:95379 [place] OFFICE/OUTPATIENT ESTABLISHED LOW MDM 20 MIN Normal [facility] Pathology Request for Lab Co rpon 06-18-2024 Pathology Request for Lab Daniel Normal [facility] Comment on above: Order Comment: PATHO LOGY GI SPECIMEN Result Comment: See report. Scanned copy available in EMR. PERFORMED BY: [place] [address] PATHOLOGIST STEAM HAND KAMLA ARCE M.D. Performed By: #### P ATH TO [facility] #### [address] Office Visiton 01-30-2024 Follow-up visit [id number] Kasey Sanchez 1960 F Date Provider Department Center 01/30/2024 FEMI BLOUNT MARCUS [place] Family History Problem Relation Age of Onset Stroke Mother Hyperlipidemia Mother Aortic aneurysm Father Family Status - Relation Status Age at Mother Father Level of Service:33817 [place] OFFICE/OUTPATIENT ESTABLISHED LOW MDM 20 MIN Normal [facility] IGP,Aptima HPV,Age Gdlnon PAP HPV Aptima Negative Normal Negative [facility] Comment on above: Result Comment: This nucleic acid amplification test detects fourteen high- risk HPV types (16,18,31,33,35,39,45,51,52,56,58,59,66,68) without differentiation. Performed at: =G - [facility] [address] [id number] Shipping And Receiving Associate: Laura Bull MD, Phone: [phone] Performed at: WB - [facility], [place] [id number] Shipping And Receiving Associate: Laura Bull MD, Phone: [phone] PERFORMED BY: [place] [address] [place] [address] PATHOLOGIST STEAM HAND KAMLA ARCE M.D. Performed By: #### P AP [id number] #### [facility] , Pap Image Guided Note Normal . [facility] Comment on above: Result Comment: TEST S RESULT FLAG UNITS REF RANGE LAB Clinician Provided Cytology Information No. of containers..01 ThinPrep Vial Age Algo ACOG Renea... 01 FLAG LEGEND: L-Low Normal,H-High Normal,LL-Alert Low,HH-Alert High <-Panic Low,>-Panic High,A-Abnormal,AA-Critical Abnormal Performed at: 01 =G [facility] [address] [place] [address] Laura Bull MD, Performed By: #### P AP [id number] #### [facility] , Result Comment: TEST S RESULT FLAG UNITS REF RANGE LAB DIAGNOSIS: 02 NEGATIVE FOR INTRAEPITHELIAL LESION OR MALIGNANCY. THIS SPECIMEN WAS RESCREENED PART OF OUR TAXI DANCER PROGRAM. Specimen adequacy: 02 Satisfactory for evaluation. Endocervical and/or squamous metaplastic cells (endocervical component) are present. Performed by: 02 Leanne Henson, Dean Of Student Services ([facility]) QC reviewed by: 02 Michelle Hess, Dean Of Student Services . 02 Note: Note 02 The Pap smear is a screening test designed to aid in the detection of premalignant and malignant conditions of the uterine cervix. It is not a diagnostic procedure and should not be used as the sole means of detecting cervical cancer. Both false-positive and false-negative reports do occur. Test Methodology: Note 02 The Bloggerce(R) Shut Off Worker was unable to read this specimen. Therefore a manual review was performed. FLAG LEGEND: L-Low Normal,H-High Normal,LL-Alert Low,HH-Alert High <-Panic Low,>-Panic High,A-Abnormal,AA-Critical Abnormal Performed at: [address] [facility] [address] Laura Bull MD, HPV Genotype Reflex Note 02 Criteria not met, HPV Genotype not performed. Criteria not met, HPV Genotype not performed. Basophils Auto (Bld) [#/Vol] on 01-09-2024 Basophils (Bld) [#/Vol] 0.1 10 3/uL 0.0-0.1 [facility] Basophils/100 WBC Auto (Bld) on 01-09-2024 Basophils/100 WBC (Bld) 1.6 % 0.2-2.0 [facility] Cholesterol in LDL Calc [Mas s/Vol]on 01-09-2024 Cholesterol in LDL [Mass/Vol] 109.0 mg/dL [facility] Comment on above: <100 mg/dl [id number] 0-129 mg/dl NEAR OR ABOVE [id number] mg/dl BORDERLINE [id number] mg/dl HIGH>190 mg/dl VERY HIGH Cholesterol in VLDL Calc [Ma ss/Vol]on 01-09-2024 Cholesterol in VLDL [Mass/Vol] 21.8 mg/dL [facility] Eosinophils/100 WBC Auto (Bl d)on 01-09-2024 Eosinophils/100 WBC (Bld) 2.1 % 0.9-7.0 [facility] Erythrocyte distribution wid th Auto (RBC) [Ratio]on 01-09-2024 Erythrocyte distribution width (RBC) [Ratio] 14.5 % 11.0-15.0 [facility] Estimated glomerular filtrat ion rate (GFR) non- Americanon 01-09-2024 GFR/1.73 sq M.predicted among non-blacks MDRD (S/P/Bld) [Vol rate/Area] 57 mL/min/{1.73_m2} >=60 [facility] Globulin Calc (S) [Mass/Vol] on 01-09-2024 Globulin (S) [Mass/Vol] 3.6 g/dL [facility] Glucose mean value [Mass/vol ume] in Blood Estimated from glycated hemoglobinon 01-09-2024 Average glucose Estimated from glycated hemoglobin (Bld) [Mass/Vol] 148 mg/dL [facility] Hematocrit Auto (Bld) [Volum e fraction]on 01-09-2024 Hematocrit (Bld) [Volume fraction] 34.0 % 36.0-48.0 [facility] Hemoglobin [Mass/volume] in Bloodon 01-09-2024 Hemoglobin (Bld) [Mass/Vol] 10.7 g/dL 12.0-16.0 [facility] Laboratory - Chemistry and C hemistry - challengeon 01-09-2024 Albumin [Mass/Vol] 3.8 g/dL 3.4-5.0 [facility] ALP [Catalytic activity/Vol] 41 U/L 46-116 [facility] ALT [Catalytic activity/Vol] 131 U/L 14-59 [facility] AST [Catalytic activity/Vol] 82 U/L 15-37 [facility] Bilirubin [Mass/Vol] 0.6 mg/dL 0.2-1.0 [facility] Calcium [Mass/Vol] 9.2 mg/dL 8.5-10.1 [facility] Chloride [Moles/Vol] 104 mmol/L 98-107 [facility] Cholesterol [Mass/Vol] 166 mg/dL <=200 [facility] Cholesterol in HDL [Mass/Vol] 36 mg/dL 40-60 [facility] Comment on above: > or =60 mg/dl - LOW CARDIOVASCULAR RISK<40 mg/dl - HIGH CARDIOVASCULAR RISK CO2 [Moles/Vol] 28.6 mmol/L 21.0-32.0 [facility] Creatinine [Mass/Vol] 0.98 mg/dL 0.55-1.02 [facility] GFR/1.73 sq M.predicted MDRD (S/P/Bld) [Vol rate/Area] mL/min/{1.73_m2} >=60 [facility] Glucose [Mass/Vol] 173 mg/dL 74-106 [facility] Potassium [Moles/Vol] 3.8 mmol/L 3.5-5.1 [facility] Protein [Mass/Vol] 7.4 g/dL 6.4-8.2 [facility] Sodium [Moles/Vol] 142 mmol/L 136-145 [facility] Triglyceride [Mass/Vol] 109 mg/dL <=150 [facility] Urea nitrogen [Mass/Vol] 27.0 mg/dL 7.0-18.0 [facility] Urea nitrogen/Creatinine [Mass ratio] 27.6 mg/mg [facility] Laboratory - Hematology and Cell countson 01-09-2024 HbA1c (Bld) [Mass fraction] 6.8 % 4.5-6.2 [facility] Comment on above: ADA RECOMMENDED LIMI T 4.0 - 6.0ADA THERAPEUTIC TARGET < 7.0ACTION SUGGESTED> 7.0 Immature granulocytes/100 WBC (Bld) 0.8 % 0.0-0.5 [facility] Leukocytes [#/volume] correc shamar for nucleated erythrocytes in Blood by Automated counon 01-09-2024 WBC corrected for nucl RBC Auto (Bld) [#/Vol] 6.3 10 3/uL 4.0-11.0 [facility] Lymphocytes Auto (Bld) [#/Vo l]on 01-09-2024 Lymphocytes (Bld) [#/Vol] 1.9 10 3/uL 1.2-3.8 [facility] Lymphocytes/100 WBC Auto (Bl d)on 01-09-2024 Lymphocytes/100 WBC (Bld) 30.0 % 20.5-60.0 [facility] MCH Auto (RBC) [Entitic mass ]on 01-09-2024 MCH (RBC) [Entitic mass] 29.0 pg 26.7-34.0 [facility] MCHC Auto (RBC) [Mass/Vol]on 01-09-2024 MCHC (RBC) [Mass/Vol] 31.5 g/dL 29.9-35.2 [facility] MCV Auto (RBC) [Entitic vol] on 01-09-2024 MCV (RBC) [Entitic vol] 92.1 fL 81.0-99.0 [facility] Monocytes Auto (Bld) [#/Vol] on 01-09-2024 Monocytes (Bld) [#/Vol] 0.6 10 3/uL 0.3-0.8 [facility] Monocytes/100 WBC Auto (Bld) on 01-09-2024 Monocytes/100 WBC (Bld) 8.7 % 1.7-12.0 [facility] Neutrophils Auto (Bld) [#/Vo l]on 01-09-2024 Neutrophils (Bld) [#/Vol] 3.6 10 3/uL 1.4-6.5 [facility] Neutrophils/100 WBC Auto (Bl d)on 01-09-2024 Neutrophils/100 WBC (Bld) 56.8 % 43.0-75.0 [facility] No Panel Informationon 01-08 Eosinophils # (Auto) 0.1 10 3/uL 0.0-0.7 [facility] Immature Granulocyte # (Auto) 0.05 10 3/uL 0.00-0.03 [facility] Platelet mean volume Auto (B ld) [Entitic vol]on 01-09-2024 Platelet mean volume (Bld) [Entitic vol] 10.5 fL 9.5-13.5 [facility] Platelets Auto (Bld) [#/Vol] on 01-09-2024 Platelets (Bld) [#/Vol] 227 10 3/uL 150-450 [facility] RBC Auto (Bld) [#/Vol]on RBC (Bld) [#/Vol] 3.69 10 6/uL 4.20-5.40 [facility] Serum or plasma albumin/glob ulin mass ratioon 01-09-2024 Albumin/Globulin [Mass ratio] 1.1 {ratio} [facility] Serum or plasma anion gap de terminationon 01-09-2024 Anion gap [Moles/Vol] 13.2 mmol/L [facility] Serum or plasma total choles terol/high density lipoprotein (HDL) cholesterol mass cris 01-09-2024 Cholesterol.total/Ch olesterol in HDL [Mass ratio] 4.6 {ratio} [facility] Comment on above: 3.3 - 4.4 LOW RISK4. 4 - 7.1 AVERAGE RISK7.1 - 11.0 MODERATE RISK>11.0 HIGH RISK Office Visiton 10-31-2023 Follow-up visit [id number] Kasey Sanchez 1960 F Date Provider Department Center 10/31/2023 [facility] Family History Problem Relation Age of Onset Stroke Mother Hyperlipidemia Mother Aortic aneurysm Father Family Status - Relation Status Age at Mother Father Level of Service:22566 [place] OFFICE/OUTPATIENT ESTABLISHED MOD MDM 30 MIN Normal [facility] MG MAMM SCREEN 3D TITI CADon 12-29-2022 MG MAMM SCREEN 3D TITI CAD Patient: KASEY SANCHEZ Exam Date: 12/29/2022 : 1960 Gender:F Ordering : DR SARAH JANSEN M.D. Admission #: [id number] Family : Order #: [id number] CLICK HERE TO VIEW EXAM RADIOLOGY REPORT [...] bone cancer at age 80. LOCATION: [facility] BREAST COMPOSITION: Heterogeneously dense,which may obscure [...] MD on 01/01/2023 at 09:51 Normal [facility] CBC AUTO DIFFon 12-08-2022 BASO # 0.1 103/ul Normal 0.0-0.1 [facility] Comment on above: Performed By: #### C BC #### [facility] [address] [address] [address] Dony Munoz Basophils/100 WBC (Bld) 0.9 % Normal 0.2-2.0 [facility] Comment on above: Performed By: #### C BC #### [facility] [address] [place], [place] [address] Dr. Dony Munoz EO # 0.1 103/ul Normal 0.0-0.7 [facility] Comment on above: Performed By: #### C BC #### [facility] [address] [place] [address] Dr. Dony Munoz Eosinophils/100 WBC (Bld) 1.9 % Normal 0.9-7.0 [facility] Comment on above: Performed By: #### C BC #### [facility] [address] [place] [address] Dr. Dony Munoz Erythrocyte distribution width (RBC) [Ratio] 13.0 % Normal 11.0-15.0 [facility] Comment on above: Performed By: #### C BC #### [facility] [address] [place] [address] Dr. Dony Munoz Hematocrit (Bld) [Volume fraction] 35.5 % Critically low 36.0-48.0 [facility] Comment on above: Performed By: #### C BC #### [facility] [address] [place] [address] Dr. Dony Munoz Hemoglobin (Bld) [Mass/Vol] 11.7 g/dL Critically low 12.0-16.0 [facility] Comment on above: Performed By: #### C BC #### [facility] [address] [place] [address] Dr. Dony Munoz IG # 0.04 10e3/ul Critically high 0.00-0.03 [facility] Comment on above: Performed By: #### C BC #### [facility] [address] [place] [address] Dr. Dony Munoz IG % 0.6 % Critically high 0.0-0.5 [facility] Comment on above: Performed By: #### C BC #### [facility] [address] [place] [address] Dr. Dony Munoz LYMPH # 1.8 103/ul Normal 1.2-3.8 [facility] Comment on above: Performed By: #### C BC #### [facility] [address] [place] [address] Dr. Dony Munoz Lymphocytes/100 WBC (Bld) 27.2 % Normal 20.5-60.0 [facility] Comment on above: Performed By: #### C BC #### [facility] [address] [place] [address] Dr. Dony Munoz MANUAL DIFF REQ NO Normal [facility] Comment on above: Performed By: #### C BC #### [facility] [address] [place] [address] Dr. Dony Munoz MCH (RBC) [Entitic mass] 29.5 pg Normal 26.7-34.0 [facility] Comment on above: Performed By: #### C BC #### [facility] [address] [place] [address] Dr. Dony Munoz MCHC (RBC) [Mass/Vol] 33.0 g/dL Normal 29.9-35.2 [facility] Comment on above: Performed By: #### C BC #### [facility] [address] [place] [address] Dr. Dony Munoz MCV (RBC) [Entitic vol] 89.6 fL Normal 81.0-99.0 [facility] Comment on above: Performed By: #### C BC #### [facility] [address] [place] [address] Dr. Dony Munoz MONO # 0.6 103/ul Normal 0.3-0.8 [facility] Comment on above: Performed By: #### C BC #### [facility] [address] [place] [address] Dr. Dony Munoz Monocytes/100 WBC (Bld) 8.3 % Normal 1.7-12.0 [facility] Comment on above: Performed By: #### C BC #### [facility] [address] [place] [address] Dr. Dony Munoz NEUT # 4.1 103/ul Normal 1.4-6.5 [facility] Comment on above: Performed By: #### C BC #### [facility] [address] [place] [address] Dr. Dony Munoz Neutrophils/100 WBC (Bld) 61.1 % Normal 43.0-75.0 [facility] Comment on above: Performed By: #### C BC #### [facility] [address] [address] [address] Dony Munoz Platelet mean volume (Bld) [Entitic vol] 9.9 fL Normal 9.5-13.5 [facility] Comment on above: Performed By: #### C BC #### [facility] [address] [address] [address] Dony Munoz PLT 248 103/ul Normal 150-450 [facility] Comment on above: Performed By: #### C BC #### [facility] [address] [address] [address] Dony Munoz RBC 3.96 106/ul Critically low 4.20-5.40 [facility] Comment on above: Performed By: #### C BC #### [facility] [address] [address] [address] Dony Munoz WBC 6.8 103/ul Normal 4.0-11.0 [facility] Comment on above: Performed By: #### C BC #### [facility] [address] [address] [address] Dony Munoz GLYCOHEMOGLOBIN A1Con 2022 ADA RECOMMENDATION SEE BELOW Normal [facility] Comment on above: Result Comment: ADA RECOMMENDED LIMIT 4.0 - 6.0 ADA THERAPEUTIC TARGET < 7.0 ACTION SUGGESTED > 7.0 Performed By: #### A 1C #### [facility] [address] [address] [address] Dony Munoz Glucose [Mass/Vol] 151 mg/dL Normal [facility] Comment on above: Performed By: #### A 1C #### [facility] [address] [address] [address] Dony Munoz HbA1c (Bld) [Mass fraction] 6.9 % Critically high 4.5-6.2 [facility] Comment on above: Performed By: #### A 1C #### [facility] [address] [address] [address] Dony Munoz LIPID PROFILEon 12-08-2022 CHOL-HDL RATIO NORM SEE BELOW Normal [facility] Comment on above: Result Comment: 3.3 - 4.4 LOW RISK 4.4 - 7.1 AVERAGE RISK 7.1 - 11.0 MODERATE RISK >11.0 HIGH RISK Performed By: #### C MP, LIPID #### [facility] [address] [address] [address] Dony Munoz Cholesterol [Mass/Vol] 172 mg/dL Normal <=200 [facility] Comment on above: Performed By: #### C MP, LIPID #### [facility] [address] [address] [address] Dony Munoz Cholesterol in HDL [Mass/Vol] 47 mg/dL Normal 40-60 [facility] Comment on above: Performed By: #### C MP, LIPID #### [facility] [address] [address] [address] Dony Munoz Cholesterol in LDL [Mass/Vol] 104.2 mg/dL Normal [facility] Comment on above: Performed By: #### C MP, LIPID #### [facility] [address] [address] [address] Dony Munoz Cholesterol.total/Ch olesterol in HDL [Mass ratio] 3.7 {ratio} Normal [facility] Comment on above: Performed By: #### C MP, LIPID #### [facility] [address] [address] [address] Dony Munoz HDL NORMAL > or = 60 mg/dl - LO W CARDIOVASCULAR RISK <40 mg/dl - HIGH CARDIOVASCULAR RISK Normal [facility] Comment on above: Performed By: #### C MP, LIPID #### [facility] [address] [address] [address] Dony Munoz LDL CALC NORMAL SEE BELOW Normal [facility] Comment on above: Result Comment: <100 mg/dl OPTIMAL 100 - 129 mg/dl NEAR OR ABOVE OPTIMAL 130 - 159 mg/dl BORDERLINE HIGH 160 - 189 mg/dl HIGH >190 mg/dl VERY HIGH Performed By: #### C MP, LIPID #### [facility] [address] [address] [address] Dony Munoz Triglyceride [Mass/Vol] 104 mg/dL Normal <=150 [facility] Comment on above: Performed By: #### C MP, LIPID #### [facility] [address] [address] [address] Dony Munoz VLDL CALC 20.8 mg/dL Normal [facility] Comment on above: Performed By: #### C MP, LIPID #### [facility] [address] [address] [address] Dony Munoz PROF 14(COMP METB)on 023 Albumin [Mass/Vol] 4.1 g/dL Normal 3.4-5.0 [facility] Comment on above: Performed By: #### C MP, LIPID ####[facility] [address] [address]DrAnnabelle Munoz Albumin/Globulin [Mass ratio] 1.2 {ratio} Normal [facility] Comment on above: Performed By: #### C MP, LIPID ####[facility] [address] [address]Dr. Dony Munoz ALP [Catalytic activity/Vol] 58 U/L Normal 46-116 [facility] Comment on above: Performed By: #### C MP, LIPID ####[facility] [address] [address]Dr. Dony Munoz ALT [Catalytic activity/Vol] 125 U/L Critically high 14-59 [facility] Comment on above: Performed By: #### C MP, LIPID ####[facility] [address] [id number] Munoz Anion gap [Moles/Vol] 12.3 mmol/L Normal [facility] Comment on above: Performed By: #### C MP, LIPID ####[facility] [address] [id number]. Dony Munoz AST [Catalytic activity/Vol] 75 U/L Critically high 15-37 [facility] Comment on above: Performed By: #### C MP, LIPID ####[facility] [address] [id number] Munoz Bilirubin [Mass/Vol] 0.5 mg/dL Normal 0.2-1.0 [facility] Comment on above: Performed By: #### C MP, LIPID ####[facility] [address] [address]Dr. Dony Munoz Calcium [Mass/Vol] 9.7 mg/dL Normal 8.5-10.1 [facility] Comment on above: Performed By: #### C MP, LIPID ####[facility] [address] [address]Dr. Dony Munoz Chloride [Moles/Vol] 105 mmol/L Normal 98-107 [facility] Comment on above: Performed By: #### C MP, LIPID ####[facility] [address] [address]Dr. Dony Munoz CO2 [Moles/Vol] 27.9 mmol/L Normal 21.0-32.[address] [facility] Comment on above: Performed By: #### C MP, LIPID ####[facility] [address] [place], [place] [address]Dr. Dony Munoz Creatinine [Mass/Vol] 0.93 mg/dL Normal 0.55-1.02 [facility] Comment on above: Performed By: #### C MP, LIPID ####[facility] [address] [address]Dr. Angekobe Munoz EGFR-AF IVORIAN >60 Normal >=[address] [facility] Comment on above: Performed By: #### C MP, LIPID ####[facility] [address] [address]Dr. Angekobe Alexander EGFR-NON AF IVORIAN >60 Normal >=60 [facility] Comment on above: Performed By: #### C MP, LIPID ####[facility] [address] [address]Dr. Dony Munoz Globulin (S) [Mass/Vol] 3.5 g/dL Normal [facility] Comment on above: Performed By: #### C MP, LIPID ####[facility] [address] [address]Dr. Dony Munoz Glucose [Mass/Vol] 163 mg/dL Critically high 74-106 [facility] Comment on above: Performed By: #### C MP, LIPID ####[facility] [address] [address]Dr. Dony Munoz Potassium [Moles/Vol] 4.2 mmol/L Normal 3.5-5.1 [facility] Comment on above: Performed By: #### C MP, LIPID ####[facility] [address] [address]Dr. Dony Munoz Protein [Mass/Vol] 7.6 g/dL Normal 6.4-8.2 [facility] Comment on above: Performed By: #### C MP, LIPID ####[facility] [address] [address]Dr. Dony Munoz Sodium [Moles/Vol] 141 mmol/L Normal 136-145 [facility] Comment on above: Performed By: #### C MP, LIPID ####[facility] [address] [address]Dr. Dony Munoz Urea nitrogen [Mass/Vol] 23.0 mg/dL Critically high 7.0-18.0 [facility] Comment on above: Performed By: #### C MP, LIPID ####[facility] [address] [address]Dr. Dony Munoz Urea nitrogen/Creatinine [Mass ratio] 24.7 mg/mg Normal [facility] Comment on above: Performed By: #### C MP, LIPID ####[facility] [address] [address]Dr. Dony Munoz VIT D 1 25 DIHYDROXYon 07-12 Calcitriol(1,25 di-OH Vit D) 29.6 pg/mL Normal 24.8-81.5 [facility] Comment on above: Performed By: #### V [id number] #### [facility] [address] [address] [address] Dony Munoz CBC AUTO DIFFon 07-10-2022 BASO # 0.1 103/ul Normal 0.0-0.1 [facility] Comment on above: Performed By: #### C BC #### [facility] [address] [address] [address] Dony Munoz Basophils/100 WBC (Bld) 0.7 % Normal 0.2-2.0 [facility] Comment on above: Performed By: #### C BC #### [facility] [address] [address] [address] Dony Munoz EO # 0.2 103/ul Normal 0.0-0.7 [facility] Comment on above: Performed By: #### C BC #### [facility] [address] [address] [address] Dony Munoz Eosinophils/100 WBC (Bld) 2.7 % Normal 0.9-7.0 [facility] Comment on above: Performed By: #### C BC #### [facility] [address] [place] [address] Dr. Dony Munoz Erythrocyte distribution width (RBC) [Ratio] 13.2 % Normal 11.0-15.0 [facility] Comment on above: Performed By: #### C BC #### [facility] [address] [place] [address] Dr. Dony Munoz Hematocrit (Bld) [Volume fraction] 32.3 % Critically low 36.0-48.0 [facility] Comment on above: Performed By: #### C BC #### [facility] [address] [place] [address] Dr. Dony Munoz Hemoglobin (Bld) [Mass/Vol] 10.4 g/dL Critically low 12.0-16.0 [facility] Comment on above: Performed By: #### C BC #### [facility] [address] [place] [address] Dr. Dony Munoz IG # 0.06 10e3/ul Critically high 0.00-0.03 [facility] Comment on above: Performed By: #### C BC #### [facility] [address] [place] [address] Dr. Dony Munoz IG % 0.8 % Critically high 0.0-0.5 [facility] Comment on above: Performed By: #### C BC #### [facility] [address] [place] [address] Dr. Dony Munoz LYMPH # 1.6 103/ul Normal 1.2-3.8 [facility] Comment on above: Performed By: #### C BC #### [facility] [address] [place] [address] Dr. Dony Munoz Lymphocytes/100 WBC (Bld) 21.4 % Normal 20.5-60.0 [facility] Comment on above: Performed By: #### C BC #### [facility] [address] [place] [address] Dr. Dony Munoz MANUAL DIFF REQ NO Normal [facility] Comment on above: Performed By: #### C BC #### [facility] [address] [place] [address] Dr. Dony Munoz MCH (RBC) [Entitic mass] 29.5 pg Normal 26.7-34.0 [facility] Comment on above: Performed By: #### C BC #### [facility] [address] [place] [address] Dr. Dony Munoz MCHC (RBC) [Mass/Vol] 32.2 g/dL Normal 29.9-35.2 [facility] Comment on above: Performed By: #### C BC #### [facility] [address] [place] [address] Dr. Dony Munoz MCV (RBC) [Entitic vol] 91.5 fL Normal 81.0-99.0 [facility] Comment on above: Performed By: #### C BC #### [facility] [address] [place] [address] Dr. Dony Munoz MONO # 0.8 103/ul Normal 0.3-0.8 [facility] Comment on above: Performed By: #### C BC #### [facility] [address] [place] [address] Dr. Dony Munoz Monocytes/100 WBC (Bld) 10.6 % Normal 1.7-12.0 [facility] Comment on above: Performed By: #### C BC #### [facility] [address] [address] [address] Dony Munoz NEUT # 4.7 103/ul Normal 1.4-6.5 [facility] Comment on above: Performed By: #### C BC #### [facility] [address] [address] [address] Dony Munoz Neutrophils/100 WBC (Bld) 63.8 % Normal 43.0-75.0 [facility] Comment on above: Performed By: #### C BC #### [facility] [address] [place] [address] Dr. Dony Munoz Platelet mean volume (Bld) [Entitic vol] 10.0 fL Normal 9.5-13.5 [facility] Comment on above: Performed By: #### C BC #### [facility] [address] [place] [address] Dr. Dony Munoz PLT 244 103/ul Normal 150-450 [facility] Comment on above: Performed By: #### C BC #### [facility] [address] [place] [address] Dr. Dony Munoz RBC 3.53 106/ul Critically low 4.20-5.40 [facility] Comment on above: Performed By: #### C BC #### [facility] [address] [place] [address] Dr. Dony Munoz WBC 7.3 103/ul Normal 4.0-11.0 [facility] Comment on above: Performed By: #### C BC #### [facility] [address] [place] [address] Dr. Dony Munoz FERRITINon 07-10-2022 Ferritin [Mass/Vol] 178.0 ng/mL Normal 8.0-252.0 [facility] Comment on above: Performed By: #### F ERR #### [facility] [address] [place] [address] Dr. Dony Munoz GLYCOHEMOGLOBIN A1Con 2021 ADA RECOMMENDATION SEE BELOW Normal [facility] Comment on above: Result Comment: ADA RECOMMENDED LIMIT 4.0 - 6.0 ADA THERAPEUTIC TARGET < 7.0 ACTION SUGGESTED > 7.0 Performed By: #### A 1C #### [facility] [address] [address] [address] Dony Munoz Glucose [Mass/Vol] 140 mg/dL Normal [facility] Comment on above: Performed By: #### A 1C #### [facility] [address] [address] [address] Dony Munoz HbA1c (Bld) [Mass fraction] 6.5 % Critically high 4.5-6.2 [facility] Comment on above: Performed By: #### A 1C #### [facility] [address] [place] [address] Dr. Dony Munoz LIPID PROFILEon 07-10-2022 CHOL-HDL RATIO NORM SEE BELOW Normal [facility] Comment on above: Result Comment: 3.3 - 4.4 LOW RISK 4.4 - 7.1 AVERAGE RISK 7.1 - 11.0 MODERATE RISK >11.0 HIGH RISK Performed By: #### L IPID #### [facility] [address] [place] [address] Dr. Dony Munoz Cholesterol [Mass/Vol] 174 mg/dL Normal <=200 [facility] Comment on above: Performed By: #### L IPID #### [facility] [address] [place] [address] Dr. Dony Munoz Cholesterol in HDL [Mass/Vol] 47 mg/dL Normal 40-60 [facility] Comment on above: Performed By: #### L IPID #### [facility] [address] [address] [address] Dony Munoz Cholesterol in LDL [Mass/Vol] 104.4 mg/dL Normal [facility] Comment on above: Performed By: #### L IPID #### [facility] [address] [place] [address] Dr. Dony Munoz Cholesterol.total/Ch olesterol in HDL [Mass ratio] 3.7 {ratio} Normal [facility] Comment on above: Performed By: #### L IPID #### [facility] [address] [place] [address] Dr. Dony Munoz HDL NORMAL > or = 60 mg/dl - LO W CARDIOVASCULAR RISK <40 mg/dl - HIGH CARDIOVASCULAR RISK Normal [facility] Comment on above: Performed By: #### L IPID #### [facility] [address] [address] [address] Dony Munoz LDL CALC NORMAL SEE BELOW Normal [facility] Comment on above: Result Comment: <100 mg/dl OPTIMAL 100 - 129 mg/dl NEAR OR ABOVE OPTIMAL 130 - 159 mg/dl BORDERLINE HIGH 160 - 189 mg/dl HIGH >190 mg/dl VERY HIGH Performed By: #### L IPID #### [facility] [address] [address] [address] Dony Munoz Triglyceride [Mass/Vol] 113 mg/dL Normal <=150 [facility] Comment on above: Performed By: #### L IPID #### [facility] [address] [address] [address] Dony Munoz VLDL CALC 22.6 mg/dL Normal [facility] Comment on above: Performed By: #### L IPID #### [facility] [address] [address] [address] Dony Munoz XR KUB 1 VIEWon [...] by: NIDHI BOGGS Date: 2022-07-10 07:01 Normal [facility] Vital Signs Date Time Vital Sign Value Performing Clinician Facility 11-25-2024 08:32-0400 Body height 162.56 cm [facility] 11-25-2024 08:32-0400 Body mass index (BMI) [Ratio] 27.3 kg/m2 [facility] 11-25-2024 [id number] Body weight 72.12 kg [facility] 11-25-2024 08:32-0400 Diastolic blood pressure 74 mm[Hg] [facility] 11-25-2024 08:32-0400 Heart rate 46 /min [facility] 11-25-2024 08:32-0400 Systolic blood pressure 144 mm[Hg] [facility] 01-18-2024 08:32-0400 Body height 162.56 cm [facility] 01-18-2024 08:32-0400 Body mass index (BMI) [Ratio] 26.9 kg/m2 [facility] 01-18-2024 08:32-0400 Body weight 71.27 kg [facility] 01-18-2024 08:32-0400 Diastolic blood pressure 73 mm[Hg] [facility] 01-18-2024 08:32-0400 Heart rate 50 /min [facility] 01-18-2024 08:32-0400 Systolic blood pressure 143 mm[Hg] [facility] 12-18-2023 15:34-0400 Body height 162.56 cm [facility] 12-18-2023 15:34-0400 Body mass index (BMI) [Ratio] 26.9 kg/m2 [facility] 12-18-2023 15:34-0400 Body weight 71.21 kg [facility] 12-18-2023 15:34-0400 Diastolic blood pressure 69 mm[Hg] [facility] 12-18-2023 15:34-0400 Heart rate 50 /min [facility] 12-18-2023 15:34-0400 Systolic blood pressure 159 mm[Hg] [facility] 08-21-2023 15:45-0500 Body height 162.56 cm Sarah Jansen Other [facility] Other 08-21-2023 15:45-0500 Body mass index (BMI) [Ratio] 27.7 kg/m2 Sarah Jansen Other [facility] Other 08-21-2023 15:45-0500 Body weight 73.21 kg Sarah Jansen Other [facility] Other 08-21-2023 15:45-0500 Diastolic blood pressure 77 mm[Hg] Sarah Jansen Other [facility] Other 08-21-2023 15:45-0500 Systolic blood pressure 143 mm[Hg] Sarah Jansen Other [facility] Other 12-04-2022 16:30-0400 Body height 162.56 cm Sarah Jansen Other [facility] Other 12-04-2022 16:30-0400 Body mass index (BMI) [Ratio] 27.46 kg/m2 Sarah Jansen Other [facility] Other 12-04-2022 16:30-0400 Body weight 72.58 kg Sarah Jansen Other [facility] Other 12-04-2022 16:30-0400 Diastolic blood pressure 82 mm[Hg] Sarah Jansen Other [facility] Other 12-04-2022 16:30-0400 SaO2% (BldA) [Mass fraction] 98 % Sarah Jansen Other [facility] Other 12-04-2022 16:30-0400 Systolic blood pressure 120 mm[Hg] Sarah Jansen Other [facility] Other Encounters Encounter Date Encounter Type Care Provider Facility Start: 11-25-2024 End: 11-25-2024 ambulatory [facility] Work Phone: Start: 11-25-2024 End: 11-25-2024 Encounter for general adult medical examination without abnormal findings [facility] Start: 11-25-2024 End: 11-25-2024 Patient encounter procedure [facility] Work Phone: Start: 10-16-2024 End: 10-17-2024 ambulatory [facility] Start: 06-18-2024 End: 06-18-2024 ambulatory MD Sarah Jansen Work Phone: [facility] Work Phone: Start: 06-18-2024 End: 06-18-2024 Departed Referred MD Sarah Jansen Work Phone: [facility] Start: 01-30-2024 End: 01-30-2024 ambulatory [facility] Start: 01-18-2024 Patient encounter status MD Sarah Jansen Work Phone: [facility] Start: 01-18-2024 End: 01-18-2024 Departed Referred MD Sarah Jansen Work Phone: [facility] [place] Work Phone: Start: 01-18-2024 End: 01-18-2024 ambulatory MD Sarah Jansen Work Phone: [facility] Work Phone: Start: 01-18-2024 End: 01-18-2024 Encounter for general adult medical examination without abnormal findings MD Sarah Jansen Work Phone: [facility] Start: 01-18-2024 End: 01-18-2024 Patient encounter procedure [facility] Work Phone: Start: 01-09-2024 Non-patient / Non-visit [facility] Work Phone: Start: 12-18-2023 End: 12-18-2023 ambulatory [facility] Work Phone: Start: 12-18-2023 End: 12-18-2023 Patient encounter procedure [facility] Work Phone: Start: 11-30-2023 End: 11-30-2023 ambulatory Sarah Jansen Other [facility] Other Start: 11-30-2023 Telephone encounter Sarah Jansen [facility] Start: 11-30-2023 Non-patient / Non-visit [facility] [facility] Work Phone: Start: 10-31-2023 ambulatory PAT JENNA [facility] Start: 09-24-2023 End: 09-24-2023 ambulatory Sarah Jansen Other [facility] Other Start: 09-24-2023 Telephone encounter Sarah Inderjit [facility] Start: 09-20-2023 Patient encounter procedure [facility] Start: 09-19-2023 End: 09-19-2023 ambulatory Eliza Galan Other [facility] Other Start: 09-19-2023 Office outpatient vi sit 15 minutes Eliza Galan [facility] Start: 09-18-2023 End: 09-18-2023 ambulatory Sarah Jansen Other [facility] Other Start: 09-18-2023 Telephone encounter Sarah Inderjit [facility] Start: 09-13-2023 End: 09-13-2023 ambulatory Sarah Inderjit Other [facility] Other Start: 09-13-2023 Telephone encounter Sarah Jansen [facility] Start: 09-12-2023 End: 09-12-2023 ambulatory Sarah Jansen Other [facility] Other Start: 09-12-2023 Telephone encounter Sarah Inderjit [facility] Start: 08-21-2023 End: 08-21-2023 ambulatory Sarha Jansen Other [facility] Other Start: 08-21-2023 Office outpatient vi sit 25 minutes Sarah Jansen [facility] Start: 07-24-2023 End: 07-24-2023 ambulatory Sarah Jansen Other [facility] Other Start: 07-24-2023 Telephone encounter Sarah Jansen [facility] Start: 12-29-2022 End: 12-30-2022 ambulatory JEWELL FARMER Facility:[facility] Start: 12-10-2022 Encounter for genera l adult medical examination without abnormal findings DR SARAH JANSEN [facility] Start: 12-08-2022 Telephone encounter Sarah Jansen [facility] Start: 12-08-2022 End: 12-09-[address] SARAH JANSEN [facility] Other Start: 12-08-2022 End: 12-09-2022 Encounter for general adult medical examination without abnormal findings DR SARAH JANSEN Facility:[facility] Start: 12-04-2022 End: 12-04-2022 Departed Referred MD Sarah Jansen Work Phone: [facility] [place] Work Phone: Start: 12-04-2022 End: 12-04-2022 ambulatory MD Sarah Jansen Work Phone: [facility] Work Phone: Start: 12-04-2022 Encounter for genera l adult medical examination without abnormal findings Sarah Jansen [facility] Start: 12-04-2022 Periodic preventive med est patient 40-64yrs Sarah Jansen [facility] Start: 07-10-2022 End: 07-11-[address] SARAH JANSEN Facility:[facility] Start: 07-07-2022 End: 07-08-[address] SARAH JANSEN Facility:[facility] Start: 07-07-[address] SARAH JANSEN Facil ity:[facility] Start: 12-15-2021 Adult health examination Sarah Jansen Other [facility] Other Start: 08-19-2018 End: 08-20-2018 Patient encounter procedure DEFAULT PHYSICIAN Facility:[facility] Start: 07-22-2018 End: 07-23-2018 Patient encounter procedure DEFAULT PHYSICIAN Facility:[facility] Procedures Date Procedure Procedure Detail Performing Clinician Start: 07-15-2015 Screening mammography M natanael Jansen Other Start: 07-14-2014 History and physical examination, administrative Sarah Jansen Other Screening for malign ant neoplasm of breast Sarah Jansen Other Plan of Treatment Date Care Activity Detail Author Start: 06-18-2024 [facility] Start: 01-18-2024 [facility] Start: 12-04-2022 [facility] Comprehensive metabo lic 1999 panel - Serum or Plasma [facility] Comprehensive metabo lic 1999 panel - Serum or Plasma [facility] Human papilloma viru s 16+18+31+33+35+39+45+51+52+56+58 +59+66+68 DNA [Presence] in Cervix by Probe with signal amplification [facility] MG Breast - bilateral Screening [facility] MG Breast - bilateral Screening [facility] Immunizations Immunization Date Immunization Notes Care Provider Fa morro 05-13-2021 COVID-19 Vaccine Pfi zer - Documentation Purposes Only Sarah Jansen Other [facility] Payers Date Payer Category Payer Unknown [id number] 2024 Self-pay 1960 Unknown [id number] [id number] 1960 Unknown [id number] 2.16.8 [id number] 1960 Unknown [id number] 2.16.84 [id number] 1960 Unknown [id number] 2.16.84 [id number] 1960 Unknown [id number] 2.16.84 [id number] 1960 Unknown [id number] 2.16.84 [id number] 1960 Unknown [id number] 2.16.84 [id number] 1959 Private Health Insurance EBM [id number] Unknown Unknown [id number] 2.16.8 [id number] Unknown [id number] 2.16.8 [id number] Social History Date Type Detail Facility Tobacco smoking status NHIS Unknown if ever smoked [facility] Work Phone: Start: 1960 Sex Assigned At Female F [facility] Sex Assigned At Sex Assigned At Bir th [place] [facility] Other Start: 10-09-2018 Tobacco smoking status NHIS Never smoked tobacco (finding) [facility] Start: 11-25-2024 Sex Female (finding) [facility] Medical Equipment Procedure Code Equipment Code Equipment Origin al Text Equipment Identifier Dates Microlet Lancets - Start: 01-01-2023 Blood Sugar Diagnostic (Blood Glucose Test) strip Start: 11-30-2023 Blood Sugar Diagnostic (Blood Glucose Test) strip Start: 11-30-2023 Blood Sugar Diagnostic (Blood Glucose Test) strip Start: 11-30-2023 Blood Sugar Diagnostic (Contour Next Test Strips) strip Start: 05-15-2024 Blood Sugar Diagnostic (Blood Glucose Test) strip Start: 11-30-2023 End: 05-15-2024 Blood Sugar Diagnostic (Contour Next Test Strips) strip Start: 09-18-2024 Lancets (Microle t Lancet) [facility] Start: 09-22-2024 Blood Sugar Diagnostic (Blood Glucose Test) strip Start: 11-30-2023 End: 05-15-2024 Blood Sugar Diagnostic (Contour Next Test Strips) strip Start: 05-15-2024 End: 09-18-2024 Clinical Notes 10-30-2014 to 10-16-2024 Note Date & Type Note Facility 10-16-2024 Note [place] [facility] Subjective Kasey Sanchez is a 63 y.o. year old female patient being seen for 6 mo follow up hypertension, mild LVH, and sinus bradycardia. No recent labs/imaging. Denies chest pain, SOB, and palpitations. Says sometimes her diastolic BP goes down to the low 50's. Patient Active Problem List Diagnosis Bradycardia Chest pain Essential hypertension Hyperlipidemia SCALES (dyspnea on exertion) Family History Problem Relation Name Age of Onset Stroke Mother Hyperlipidemia Mother Aortic aneurysm Father Social History Tobacco Use Smoking status: Never Smokeless tobacco: Never Substance Use Topics Alcohol use: Yes Comment: occasional HPI Kasey is seen in follow-up. I have not seen her personally since 2021. She has seen other providers in our group. She is a 63-year-old woman with history of diabetes, hypertension. Previously she was evaluated due to chest pain and the stress test in 2017 was normal. Most recent cardiac evaluation was in 2023 including an echocardiogram and a stress test that were nonrevealing. She is known to have sinus bradycardia. Today she reports that she has been doing reasonably well. She denies chest pain, shortness of breath, palpitations, dizziness, lightheadedness and syncope. She reports that her diastolic blood pressure sometimes is on the lower end. Also her heart rate at rest is in the 50s but when she stands up and walk her heart rate goes up. She is not on any beta-blockers. She continues to be on losartan for hypertension and atorvastatin for her hyperlipidemia. Review of Systems Musculoskeletal: Positive for arthritis and joint swelling. Neurological: Positive for loss of balance. All other systems reviewed and are negative. Objective Visit Vitals BP 136/72 (BP Location: Left arm, Patient Position: Sitting) Pulse 52 Ht 1.626 m (5' 4 ) Wt 71.2 kg (157 lb) SpO2 98% BMI 26.95 kg/m??? Smoking Status Never BSA 1.79 m??? Physical Exam Constitutional: Appearance: She is well-developed. She is not ill-appearing. HENT: Head: Normocephalic and atraumatic. Nose: Nose normal. Eyes: General: No scleral icterus. Pupils: Pupils are equal, round, and reactive to light. Neck: Thyroid: No thyromegaly. Vascular: No JVD. Cardiovascular: Rate and Rhythm: Regular rhythm. Bradycardia present. Pulses: Radial pulses are 2+ on the right side and 2+ on the left side. Heart sounds: Normal heart sounds. No murmur heard. No friction rub. No gallop. Pulmonary: Effort: Pulmonary effort is normal. No respiratory distress. Breath sounds: Normal breath sounds. No wheezing or rales. Chest: Chest wall: No tenderness. Abdominal: General: Bowel sounds are normal. There is no distension. Palpations: Abdomen is soft. Tenderness: There is no abdominal tenderness. Musculoskeletal: General: No swelling. Cervical back: Neck supple. Skin: General: Skin is warm and dry. Neurological: General: No focal deficit present. Mental Status: She is alert and oriented to person, place, and time. Psychiatric: Mood and Affect: Mood normal. Behavior: Behavior is cooperative. Judgment: Judgment normal. Allergies Allergies Allergen Reactions Penicillins Medications Current Outpatient Medications: atorvastatin (Lipitor) 10 mg tablet, TAKE 1 TABLET BY MOUTH EVERY DAY, Disp: 90 tablet, Rfl: 3 escitalopram (Lexapro) 10 mg tablet, 10 mg 1 (one) time each day., Disp: , Rfl: fenofibrate (Tricor) 145 mg tablet, Take 145 mg by mouth in the morning., Disp: , Rfl: glipiZIDE XL (Glucotrol XL) 2.5 mg 24 hr tablet, Take 2.5 mg by mouth in the morning., Disp: , Rfl: losartan (Cozaar) 50 mg tablet, TAKE 1 TABLET BY MOUTH EVERY DAY IN THE MORNING, Disp: 90 tablet, Rfl: 3 cholecalciferol (Vitamin D3) 10 MCG (400 UNIT) tablet, , Disp: , Rfl: Recent Labs Blood testing 01/09/2024: Hemoglobin 10.7, platelets 227, potassium 3.8, BUN 27, creatinine 0.98, EGFR 57, hemoglobin A1c 6.8, AST 82, ALT 131, alkaline phosphatase 41. Triglycerides 109, cholesterol 166, LDL 109, HDL 36. Imaging and other tests Aortic duplex ultrasound 08/19/2019: No obvious abnormalities visualized. No abdominal aneurysm visualized. Mild atherosclerotic plaque visualized. Event monitor 09/12/2023 - 10/12/2023: Sinus rhythm, Sinus tachycardia, Sinus bradycardia 68%, noted PAC and PVC Treadmill stress test 10/12/2023: Ischemic EKG changes seen in the inferolateral leads, suggestive of ischemia. Mcnamara treadmill score is 2.3, estimated 1 year mortality is 1-1.1%. Risk category is moderate risk. Angiography may be indicated. Myocardial perfusion imaging study is normal. LVEF is normal, calculated LVEF is 75%. Echocardiogram 10/12/2023: Mild cocentric LV hypertrophy with normal systolic function, LVEF 55-60% Normal RV size and systolic function Normal diastolic function No significant valvular dysfunction Mi (more content not included)... [facility] 01-30-2024 Note [facility] Cardiology Clinic Note Chief Complaint: Patient [...] and dyslipidemia She had been seeing Dr. Cooper Lewis for many years and is very happy [...] had no symp (more content not included)... [facility] 10-31-2023 Note Continue lipitor and tricor- pt to have repeat annual labs with PCP next month [facility] 10-31-2023 Note Hypertension is well controlled at home- this morning B/P was 106/60 Continue losartan [facility] 10-31-2023 Note Currently stable and asymptomati c [facility] 10-31-2023 Note Resolved [facility] 10-31-2023 Note [facility] CARDIOLOGY PROGR ESS [...] office for lightheadedness/dizzine (more content not included)... [facility] 10-31-2023 Note Patient here for fol [...] All other systems reviewed and are negative. [facility] 09-19-2023 Evaluation note Encounter Date Diagnosis [...] in visit was myself, Eliza Galan DNP, ENGINEERING INSPECTION ASSISTANT, WELDING MACHINE OPERATOR RESISTANCE (provider) and Miriam Simpson, who was the roomer in asking patient pre-visit questions per virtual visit platform. Time spent with patient was approximately 10 minutes. [facility] Other 12-28-2023 Evaluation note* Encounter Date Diagnosis Assessment Notes Treatment Notes Treatment Clinical Notes Aug, Anxiety (ICD-10 - F41.9) [facility] Other 12-05-2023 Evaluation note* Encounter Date Diagnosis Assessment Notes [...] deficiency (ICD-10 - E55.9) Due for labs [facility] Other 03-20-2023 Evaluation note* Encounter Date Diagnosis Assessment Notes [...] check a1C Nov, Fatigue (ICD-10 - R53.83) [place] [facility] Other 02-13-2015 Evaluation note* Diagnosis Onset Date Resolution Status Essential (primary) hypertension October 30, 2014 acute Type 2 diabetes mellitus with hyperglycemia acute [facility] Work Phone: 1(520) 607-686602-13-2015 Evaluation note* Diagnosis Onset Date Resolution Status Essential (primary) hypertension October 30, 2014 acute Type 2 diabetes mellitus with hyperglycemia acute Essential (primary) hypertension October 30, 2014 acute Type 2 diabetes mellitus with hyperglycemia acute Wellness examination acute [facility] Work Phone: 1(656) 709-239102-13-2015 Evaluation note* Diagnosis Onset Date Resolution Status Admit Date Essential (primary) hypertension October 30, 2014 acute November 25, 2024 8:27am SAINI (nonalcoholic steatohepatitis) acute November 25 8:27am Screening mammogram for breast cancer acute November 25, 2024 8:27am Type 2 diabetes mellitus with hyperglycemia acute November 25, 025 8:27am Vitamin D deficiency acute Adan h 2024 8:27am Wellness examination acute [facility] 2024 8:27am [facility] Work Phone: Evaluation noteNo assessment information available [facility] Work Phone: [facility] Other History general Narrative - Reported* Type [...] Gallbladder 08/07/2018 Hospitalization History SEE SURGICAL HX [place] [facility] Other Summary Purpose Family History Relationship Condition Age at Onset Recorded Date/T toni father Unknown Advance Directives Advance Directive Response Recorded Date/ Time Advance Directives No December 07 2:36pm Chief Complaint and Reason for Visit [...] 2 diabetes mellitus with hyperglycemia Wellness examination Chief Complaint Unknown Chief Complaint Admit Date Wellness November 25, 2024 8:2 7am Reason for Visit Admit Date Essential (primary) hypertension November 152024 8:27am SAINI (nonalcoholic steatohepatitis) Adan 2024 8:27am Screening mammogram for breast cancer [facility] 2024 8:27am Type 2 diabetes mellitus with hyperglyce davy November 25, 2024 8:27am Vitamin D deficiency November 25, 2024 8: 27am Wellness examination November 25, 2024 8: 27am Additional Source Comments INFORMATION SOURCE (unrecogn ized section and content) DATE CREATED AUTHOR 08/25/2018 [facility] DATE CREATED AUTHOR AUTHOR'S ORGANIZ ATION 01/04/2023 [facility] DATE CREATED AUTHOR AUTHOR'S ORGANIZ ATION 06/25/2024 [facility] DATE CREATED AUTHOR AUTHOR'S MAGGIE ATION 10/18/2024 [facility] Care Teams (unrecognized sec tion and content) Team Status: Active Member Role Status Dates Sarah Jansen MD Primary Care Provider Active Team Status: Inactive Member Role Status Dates Sarah Jansen MD Primary Care Provider Active Start: June 18, 2024 End: June 18, 2024 Johnie Gaxiola DO Attending Provider Active Start: June 18, 2024 End: June 18, 2024 Team Status: Inactive Member Role Status Dates Sraah Jansen MD Attending Provider Active Team Status: [...] January 18, 2024 End: January 18, 2024 Team Status: Inactive Member Role Status Dates Sarah Jansen MD Primary Care Provide r, Attending Provider Active Start: November 25, 2024 End: November 25, 2024 Goals (unrecognized section and content) Goals [...] BE BASED ON THE PRIMARY CLINICAL RECORDS. [facility]. provides no warranty or guarantee of the accuracy or completeness of information in this document.
[2024-12-04 08:15] LABS: Basophils Absolute Auto 0.1 10^3/uL (0.0-0.1); Eosinophils Absolute Auto 0.1 10^3/uL (0.0-0.7); Eosinophils Percent Auto 2.3 % (0.9-7.0); Hematocrit 35.2 % (36.0-48.0); Hemoglobin 11.6 g/dL (12.0-16.0); Immature Granulocytes Abs Auto 0.04 10^3/uL (0.00-0.03); Immature Granulocytes Pct Auto 0.6 % (0.0-0.5); Lymphocytes Absolute Auto 1.8 10^3/uL (1.2-3.8); Lymphocytes Percent Auto 28.5 % (20.5-60.0); Mean Corpuscular Hemoglobin 29.7 pg (26.7-34.0); Mean Platelet Volume 10.2 fL (9.5-13.5); Monocytes Absolute Auto 0.5 10^3/uL (0.3-0.8); Monocytes Percent Auto 7.5 % (1.7-12.0); Neutrophils Absolute Auto 3.7 10^3/uL (1.4-6.5); Neutrophils Percent Auto 60.1 % (43.0-75.0); Platelet Count 217 10^3/uL (150-450); Red Blood Count 3.91 10^6/uL (4.20-5.40); Red Cell Distribution Width 13.4 % (11.0-15.0); White Blood Count 6.2 10^3/uL (4.0-11.0)
[2024-12-04 08:30] LABS: Estimated Average Glucose 171 mg/dL; Glycohemoglobin A1C 7.6 % (4.5-6.2)
[2024-12-04 08:44] LABS: Alanine Aminotransferase 100 U/L (14-59); Albumin Globulin Ratio 1.1; Alkaline Phosphatase 62 U/L (46-116); Anion Gap 11.3; Aspartate Amino Transferase 55 U/L (15-37); Bilirubin Total 0.6 mg/dL (0.2-1.0); Calcium 9.3 mg/dL (8.5-10.1); Carbon Dioxide 28.4 mmol/L (21.0-32.0); Chloride 104 mmol/L (98-107); Chol HDL Ratio 4.1; Cholesterol 182 mg/dL (<=200); Estimated GFR (African America >60 (>=60 mL/min/1.73m^2); Estimated GFR (Non-African Ame 53 (>=60 mL/min/1.73m^2); Globulin 3.5 g/dL; Glucose 195 mg/dL (74-106); HDL Cholesterol 44 mg/dL (40-60); Potassium 3.7 mmol/L (3.5-5.1); Sodium 140 mmol/L (136-145); Total Protein 7.5 g/dL (6.4-8.2); Triglycerides 162 mg/dL (<=150); VLDL CHOLESTEROL 32.4 mg/dL
[2024-12-04 09:28] LABS: Microalbum Creatinine Ratio Ur 18.8 mg/g (0.0-29.9); Microalbumin Urine Random 3.9 mg/dL (<=30.0)
== END 2024-12-04 07:55 | disposition home or self-care (01) ==
LOC: LAB 07:54
PROVIDERS: PCP Family Medicine; Visit Provider Family Medicine
DX: Z00.00 Encounter for general adult medical examination without abnormal findings (principal); E55.9 Vitamin D deficiency, unspecified; E11.65 Type 2 diabetes mellitus with hyperglycemia; K75.81 Nonalcoholic steatohepatitis (NASH); I10 Essential (primary) hypertension
CPT/HCPCS: 36415; 80053; 80061; 82043; 82306; 82570; 83036; 85025

== ENCOUNTER 2024-12-31 07:52 | Outpatient (OUT) | payer BC, SELFPAY ==
--- OUTSIDE RECORDS SUMMARY | 2024-12-31 08:07 | XMS_ITS | CCD ---
Author Organization [facility] CliniSyri Care Team Providers Care Director Of Manufacturing Name Role Phone PHYSICIAN, DEFAULT Unavailable Unavailable PHYSICIAN, DEFAULT Unavailable Unavailable PHYSICIAN, DEFAULT Unavailable Unavailable PHYSICIAN, DEFAULT Unavailable Unavailable MD Sarah Jansen Attending Provider [phone] Sarah Jansen Unavailable INDERJIT, DR SARAH Luque [...] Unavailable JANSEN, DR SARAH Luque Attending Unavailable ALBERTSONJEWELL V Consulting Unavailable JANSEN, DR SARAH Luque Primary Care Unavailable JANSEN, DR SARAH Luque Admitting Unavailable JANSEN, DR SARAH Luque Attending Unavailable JANSEN, DR SARAH Luque Consulting Unavailable JANSEN, DR SARAH Luque Primary Care Unavailable [facility] DR NIDHI Lewis Consulting Unavailable JANSEN, DR SARAH Luque Admitting Unavailable JANSEN, DR SARAH Luque Attending Unavailable JANSEN, DR SARAH Luque Consulting Unavailable Eliza Galan Unavailable MD Sarah Jansen Primary Care Provider [phone] MD Sarah Jansen Attending Provider MD Sarah Jansen Primary Care Provider [phone] DO Johnie Gaxiola Attending Provider Johnie Gaxiola Admitting Unavailable Sarah Jansen Primary Care Unavailable Johnie Gaxiola Attending Unavailable Sarah Jansen Attending Unavailable Sarah Jansen Primary Care Unavailable Sarah Jansen Admitting Unavailable COOPER LEWIS Attending Unavailable FEMI PINON Attending Unavailable PAT WEST Attending Unavailable Allergies Allergy Classification Reported Allergen(s) Allergy Type Date of Onset Reaction(s) Facility (10 sources) levoFLOXacin Drug Allergy Unknown [facility] [employer] Other (7 sources) Penicillins (Antibiotic) Propensity to adverse reactions Unknown [facility] [employer] Other (16 sources) Sulfamethoxazole Drug Allergy 12-18-19 24 Unknown, [facility] (8 sources) Penicillins; Translations: [PENICILLINS] Drug allergy (disorder) 03-10-20 13 [facility] Repository Comment on above: Onset Date: 06/20/20 13 (1 source) Sulfonamides (Antibiotic) Drug allergy (disorder) [facility] Repository (8 sources) Penicillin Drug Allergy 06-20-20 13 Unknown [facility] [employer] Other (5 sources) Substance with penicillin structure and antibacterial mechanism of action (substance) Drug allergy Unknown [facility] [employer] Other (5 sources) patient allergy list reviewed by nurse or physicia Propensity to adverse reactions 12-09-19 14 Comment:Done [employer] Other (5 sources) Allergies Reconciled Propensity to adverse reactions Unknown [facility] [employer] Other (7 sources) levoFLOXacin; Translations: [levofloxacin] Drug Allergy 12-18-19 24 [facility] (1 source) Penicillins Drug allergy (disorder) 01-18-20 24 [facility] Repository (1 source) Sulfamethoxazole Drug Allergy 01-18-20 [facility] Repository Medications Current Medications Medication Drug Class(es) Dates Sig (Normalized) Sig (Original) atorvastatin 10 mg oral tablet (20 sources) HMG-CoA Reductase Inhibitor Start: 12-17-2023 take 1 tablet by mouth once daily Atorvastatin 10 mg tablet Active 10 MG PO Daily December 17, 2023 12:00am take 1 tablet by mouth every twe nty-four hours Blood-Glucose Sensor (Freestyle Enedina 3 Plus Sensor) device (1 source) Start: 12-25-2024 Blood-Glucose Sensor (Freestyle Enedina 3 Plus Sensor) device Active 0 .ROUTE .MEDSUPPLY 2 December 25, 2024 12:00am change every 15 days pt has flight agent coupon cholecalciferol 0.025 mg oral capsule (1 source) Vitamin D Start: 12-25-2024 take 1 capsule by mouth once daily Cholecalciferol (Vitamin D3) 25 mcg (1,000 unit) capsule Active 25 MCG PO Daily December 25, 2024 12:00am Contour Next Test - (8 sources) Contour Next Renea t - USE TO TEST ONCE A DAY for 90 days Active escitalopram 10 mg oral tablet (18 sources) Serotonin Reuptake Inhibitor Start: 03-04-2024 End: 09-01-2024 take 1 tablet by mouth once daily Escitalopram Oxalate 10 mg tablet Active 0 .ROUTE .COMPLEX September 01, 2024 5:33pm TAKE 1 TABLET [...] Aug, Active Fenofibrate Nanocrystallized 145 mg tablet (2 sources) Start: 08-09-2024 take 1 tablet by mouth once daily Fenofibrate Nanocrystallized 145 mg tablet Active 0 .ROUTE .COMPLEX August 09, 2024 8:10am TAKE 1 TABLET BY MOUTH EVERY DAY Hair Skin Nails (10 sources) losartan potassium 50 mg oral tablet (16 sources) Angiotensin 2 Receptor Noel Start: 12-17-2023 take 1 tablet by mouth once daily Losartan 50 mg tablet Active 50 MG PO Daily December 17, 2023 12:00am take 1 tablet by dayanara th every twenty-four hours Losartan Potassium 50 MG 1 tablet Orally Once a day Active omeprazole 20 mg delayed release oral capsule (2 sources) Proton Pump Inhibitor Start: 11-25-2024 take 1 [...] once daily Active Vit E-Vit C-Beta Carotene [phone] (10 sources) take 200-250 tablets by mouth once daily Vit E-Vit C-Beta Carotene [phone] 1 tablet Orally Once a day Active vitamin e 180 mg oral capsule (1 source) Start: 12-25-2024 take 1 capsule by mouth once daily Vitamin E Mixed 400 unit capsule Active 400 UNIT PO Daily December 25, 2024 12:00am Completed/Discontinued Medications Medication Drug Class(es) Dates Sig (Normalized) Sig (Original) Blood-Glucose Meter (Onetouch Verio Flex Start) kit (1 source) Start: 11-25-2024 End: 12-25-2024 Blood-Glucose Meter (Onetouch Verio Flex Start) kit Discontinued 0 .Route 1 November 25, 2024 12:00am December 25, 2024 3:19pm As directed docusate sodium 100 mg oral capsule (15 sources) Start: 01-16-2024 End: 01-18-2024 take 1 capsule by mouth three times daily take 1 capsule by mouth every ei ght hours ergocalciferol 0.01 mg oral tablet (5 sources) Provitamin D2 Compound Start: 01-16-2024 End: 11-25-2024 take 1 tablet by mouth once daily Ergocalciferol (Vitamin D2) 10 mcg (400 unit) tablet Discontinued 10 MCG PO Daily January 16, 2024 12:00am November 25, 2024 8:40am fenofibrate 145 mg oral tablet (19 sources) Peroxisome Proliferator Receptor alpha Agonist Start: [...] 1 capsule Orally Once a day Not-Taking glipiZIDE er 2.5 mg 24 hr extended release oral tablet (20 sources) Sulfonylurea Start: 05-23-20 take 1 tablet by mouth once daily Glipizide Active 0 .ROUTE .COMPLEX May 23, 2024 8:40am TAKE 1 TABLET BY MOUTH EVERY DAY Start: 12-31-2023 End: 11-07-2024 take 1 tablet by mouth once daily Glipizide 2.5 mg tablet extended release 24hr Discontinued 0 .ROUTE .COMPLEX 90 August 09, 2024 8:10am November 07, 2024 4:35pm TAKE 1 TABLET BY MOUTH EVERY DAY Start: 12-31-2023 End: 05-23-2024 take 1 tablet by mouth once daily Glipizide Discontinued 0 .ROUTE .COMPLEX December 31, 2023 11:11am May 23, 2024 8:40am TAKE 1 TABLET BY MOUTH EVERY DAY Start: 12-31-2023 [facility] Glipizide Active 0 .ROUTE .COMPLEX December 31, 2023 11:11am TAKE 1 TABLET BY MOUTH EVERY DAY Start: 12-17-2023 End: 12-31-2023 take 1 tablet by mouth once daily Glipizide 2.5 mg tablet Discontinued 2.5 MG PO Daily December 17, 2023 12:00am December 31, 2023 11:11am take 1 tablet by [facility] once daily glipiZIDE ER 2.5 MG TAKE 1 TABLET BY MOUTH EVERY DAY for Active nitrofurantoin, macrocrystals 25 mg / nitrofurantoin, monohydrate [...] [Pelvic and perineal pain] Onset: 01-17-2016 Episodic Administrative/social admission (2 sources) Patient encounter status; Translations: [Dietary counseling and surveillance] 12-25-2024 Episodic Anxiety disorders (15 sources) Anxiety; Translations: [Anxiety disorder, unspecified] Chronic [...] unspecified] 12-17-2023 Episodic Deficiency and other anemia (6 sources) Iron deficiency anemia secondary to inadequate [...] [Essential (primary) hypertension] Onset: 10-30-2014 12-17-2023 Chronic Gastritis and duodenitis (2 sources) Gastritis; Translations: [Gastritis, unspecified, without bleeding] 11-25-2024 Episodic Genitourinary symptoms and ill-defined conditions (8 sources) Dysuria; Translations: [Dysuria] Episodic Hepatitis (19 sources) Nonalcoholic steatohepatitis; Translations: [Nonalcoholic steatohepatitis (SAINI)] [...] mass index (BMI) 29.0-29.9, adult] Episodic Other nutritional; endocrine; and metabolic disorders (1 source) Overweight in adulthood with body mass index of 25 or more but less than 30; Translations: [Body mass index (BMI) 26.0-26.9, adult] 12-25-2024 Episodic Other nutritional; endocrine; and metabolic disorders (1 source) Body mass index (BMI) 26.0-26.9, adult; Translations: [Body Mass Index 26.0-26.9, adult] 12-25-2024 Episodic Other screening for suspected conditions (not [...] Spondylosis; intervertebral disc disorders; other back problems (14 sources) Low back pain; Translations: [Low back [...] Test Name Value Interpretation Reference Range Facility Basophils Auto (Bld) [#/Vol] on 12-04-2024 Basophils (Bld) [#/Vol] Automated basophil count 0.0-0.1 [facility] Basophils/100 WBC Auto (Bld) on 12-04-2024 Basophils/100 WBC (Bld) Automated basophil % 0.2-2.0 [facility] Cholesterol in LDL Calc [Mas s/Vol]on 12-04-2024 Cholesterol in LDL [Mass/Vol] Cholesterol in LDL [Mass/volume] in Serum or Plasma by calculation [facility] Comment on above: <100 mg/dl [id number] 0-129 mg/dl NEAR OR ABOVE [id number] mg/dl BORDERLINE [id number] mg/dl HIGH>190 mg/dl VERY HIGH Cholesterol in VLDL Calc [Ma ss/Vol]on 12-04-2024 Cholesterol in VLDL [Mass/Vol] Cholesterol in VLDL [Mass/volume] in Serum or Plasma by calculation [facility] Eosinophils/100 WBC Auto (Bl d)on 12-04-2024 Eosinophils/100 WBC (Bld) Automated eosinophil % 0.9-7.0 [facility] Erythrocyte distribution wid th Auto (RBC) [Ratio]on 12-04-2024 Erythrocyte distribution width (RBC) [Ratio] Erythrocyte distribution width [Ratio] by Automated count 11.0-15.0 [facility] Estimated glomerular filtrat ion rate (GFR) non- Americanon 12-04-2024 GFR/1.73 sq M.predicted among non-blacks MDRD (S/P/Bld) [Vol rate/Area] Estimated glomerular filtration rate (GFR) non- Low >=60 mL/min/1.73m 2 [facility] Globulin Calc (S) [Mass/Vol] on 12-04-2024 Globulin (S) [Mass/Vol] Serum globulin measurement by calculation (mass/volume) [facility] Glucose mean value [Mass/vol ume] in Blood Estimated from glycated hemoglobinon 12-04-2024 Average glucose Estimated from glycated hemoglobin (Bld) [Mass/Vol] Glucose mean value [Mass/volume] in Blood Estimated from glycated hemoglobin [facility] Hematocrit Auto (Bld) [Volum e fraction]on 12-04-2024 Hematocrit (Bld) [Volume fraction] Hematocrit [Volume Fraction] of Blood by Automated count Low 36.0-48.0 [facility] Hemoglobin A1c percentageon 12-04-2024 HbA1c (Bld) [Mass fraction] Hemoglobin A1c percentage High 4.5-6.2 [facility] Comment on above: ADA RECOMMENDED LIMI T 4.0 - 6.0ADA THERAPEUTIC TARGET < 7.0ACTION SUGGESTED> 7.0 Hemoglobin [Mass/volume] in Bloodon 12-04-2024 Hemoglobin (Bld) [Mass/Vol] Hemoglobin [Mass/volume] in Blood Low 12.0-16.0 [facility] Laboratory - Chemistry and C hemistry - challengeon 12-04-2024 Albumin [Mass/Vol] 4.0 g/dL 3.4-5.0 [facility] ALP [Catalytic activity/Vol] 62 U/L 46-116 [facility] ALT [Catalytic activity/Vol] 100 U/L High 14-59 [facility] AST [Catalytic activity/Vol] 55 U/L High 15-37 [facility] Bilirubin [Mass/Vol] 0.6 mg/dL 0.2-1.0 [facility] Calcium [Mass/Vol] 9.3 mg/dL 8.5-10.1 [facility] Chloride [Moles/Vol] 104 mmol/L 98-107 [facility] Cholesterol [Mass/Vol] 182 mg/dL <=200 [facility] Cholesterol in HDL [Mass/Vol] 44 mg/dL 40-60 [facility] Comment on above: > or =60 mg/dl - LOW CARDIOVASCULAR RISK<40 mg/dl - HIGH CARDIOVASCULAR RISK CO2 [Moles/Vol] 28.4 mmol/L 21.0-32.0 [facility] Creatinine [Mass/Vol] 1.04 mg/dL High 0.55-1.02 [facility] GFR/1.73 sq M.predicted MDRD (S/P/Bld) [Vol rate/Area] mL/min/{1.73_m2} >=60 mL/min/1.73m 2 [facility] Glucose [Mass/Vol] 195 mg/dL High 74-106 [facility] Potassium [Moles/Vol] 3.7 mmol/L 3.5-5.1 [facility] Protein [Mass/Vol] 7.5 g/dL 6.4-8.2 [facility] Sodium [Moles/Vol] 140 mmol/L 136-145 [facility] Triglyceride [Mass/Vol] 162 mg/dL High <=150 [facility] Urea nitrogen [Mass/Vol] 26.0 mg/dL High 7.0-18.0 [facility] Urea nitrogen/Creatinine [Mass ratio] 25.0 mg/mg [facility] Laboratory - Hematology and Cell countson 12-04-2024 Immature granulocytes/100 WBC (Bld) 0.6 % High 0.0-0.5 [facility] Leukocytes [#/volume] correc shamar for nucleated erythrocytes in Blood by Automated counon 12-04-2024 WBC corrected for nucl RBC Auto (Bld) [#/Vol] Leukocytes [#/volume] corrected for nucleated erythrocytes in Blood by Automated coun 4.0-11.0 [facility] Lymphocytes Auto (Bld) [#/Vo l]on 12-04-2024 Lymphocytes (Bld) [#/Vol] Lymphocytes [#/volume] in Blood by Automated count 1.2-3.8 [facility] Lymphocytes/100 WBC Auto (Bl d)on 12-04-2024 Lymphocytes/100 WBC (Bld) Lymphocytes/100 leukocytes in Blood by Automated count 20.5-60.0 [facility] MCH Auto (RBC) [Entitic mass ]on 12-04-2024 MCH (RBC) [Entitic mass] MCH [Entitic mass] by Automated count 26.7-34.0 [facility] MCHC Auto (RBC) [Mass/Vol]on 12-04-2024 MCHC (RBC) [Mass/Vol] MCHC [Mass/volume] by Automated count 29.9-35.2 [facility] MCV Auto (RBC) [Entitic vol] on 12-04-2024 MCV (RBC) [Entitic vol] MCV [Entitic volume] by Automated count 81.0-99.0 [facility] Microalbumin [Mass/volume] i n Urineon 12-04-2024 Albumin DL <= 20 mg/L (U) [Mass/Vol] Microalbumin [Mass/volume] in Urine <=30.0 [facility] Monocytes Auto (Bld) [#/Vol] on 12-04-2024 Monocytes (Bld) [#/Vol] Automated blood monocyte count 0.3-0.8 [facility] Monocytes/100 WBC Auto (Bld) on 12-04-2024 Monocytes/100 WBC (Bld) Automated monocyte % 1.7-12.0 [facility] Neutrophils Auto (Bld) [#/Vo l]on 12-04-2024 Neutrophils (Bld) [#/Vol] Neutrophils [#/volume] in Blood by Automated count 1.4-6.5 [facility] Neutrophils/100 WBC Auto (Bl d)on 12-04-2024 Neutrophils/100 WBC (Bld) Automated neutrophil % 43.0-75.0 [facility] No Panel Informationon 12-04 25-Hydroxy Vitamin D Total 22.9 ng/mL [facility] Comment on above: <20 ng/mL Vit D defi cient20-<30 ng/mL Vit D [id number] ng/mL Vit D sufficient>100 ng/mL Potential Toxicity Eosinophils # (Auto) 0.1 10 3/uL 0.0-0.7 [facility] Immature Granulocyte # (Auto) 0.04 10 3/uL High 0.00-0.03 [facility] Urine Random Creatinine 206.60 mg/dL 20.00-300.00 [facility] Platelet mean volume Auto (B ld) [Entitic vol]on 12-04-2024 Platelet mean volume (Bld) [Entitic vol] Platelet mean volume [Entitic volume] in Blood by Automated count 9.5-13.5 [facility] Platelets Auto (Bld) [#/Vol] on 12-04-2024 Platelets (Bld) [#/Vol] Platelets [#/volume] in Blood by Automated count 150-450 [facility] RBC Auto (Bld) [#/Vol]on RBC (Bld) [#/Vol] Erythrocytes [#/volume] in Blood by Automated count Low 4.20-5.40 [facility] Serum or plasma albumin/glob ulin mass ratioon 12-04-2024 Albumin/Globulin [Mass ratio] Serum or plasma albumin/globulin mass ratio [facility] Serum or plasma anion gap de terminationon 12-04-2024 Anion gap [Moles/Vol] Serum or plasma anion gap determination [facility] Serum or plasma total choles terol/high density lipoprotein (HDL) cholesterol mass cris 12-04-2024 Cholesterol.total/Ch olesterol in HDL [Mass ratio] Serum or plasma total cholesterol/high density lipoprotein (HDL) cholesterol mass rat [facility] Comment on above: 3.3 - 4.4 LOW RISK4. 4 - 7.1 AVERAGE RISK7.1 - 11.0 MODERATE RISK>11.0 HIGH RISK Urine microalbumin/creatinin e mass ratioon 12-04-2024 Albumin/Creatinine DL <= 20 mg/L (U) [Mass ratio] Urine microalbumin/creatini ne mass ratio 0.0-29.9 [facility] Comment on above: NO MICROALBUMINURIA 0-29 MG/GCLINICAL MICROALBUMINURIA 30-300 MG/GMACROALBUMINURIA >300 MG/G Office Visiton 10-16-2024 Follow-up visit [id number] Kasey Sanchez 1960 F Date Provider Department Center 10/16/2024 COOPER MCNEAL CARD [facility] Family History Problem Relation Age of Onset Stroke Mother Hyperlipidemia Mother Aortic aneurysm Father Family Status - Relation Status Age at Mother Father Level of Service:65103 [place] OFFICE/OUTPATIENT ESTABLISHED LOW MDM 20 MIN Normal [facility] Pathology Request for Lab Co rpon 06-18-2024 Pathology Request for Lab Daniel Normal [facility] Comment on above: Order Comment: PATHO LOGY GI SPECIMEN Result Comment: See report. Scanned copy available in EMR. PERFORMED BY: [facility] [place] [address] PATHOLOGIST MACHINE SORTER KAMLA ARCE M.D. Performed By: #### P ATH TO [facility] #### [facility] [address] [id number] [facility] Office Visiton 01-30-2024 Follow-up visit [id number] Kasey Snachez 1960 F Date Provider Department Center 01/30/2024 EmigdioManojGLENNMADHU FEMI CARD [facility] [place] Family History Problem Relation Age of Onset Stroke Mother Hyperlipidemia Mother Aortic aneurysm Father Family Status - Relation Status Age at Mother Father Level of Service:55807 [place] OFFICE/OUTPATIENT ESTABLISHED LOW MDM 20 MIN Normal [facility] IGP,Aptima HPV,Age Gdlnon PAP HPV Aptima Negative Normal Negative [facility] Comment on above: Result Comment: This nucleic acid amplification test detects fourteen high- risk HPV types (16,18,31,33,35,39,45,51,52,56,58,59,66,68) without differentiation. Performed at: = - [facility] [address] [id number] Supervisor Plasma: Laura Bull MD, Phone: [phone] Performed at: - [facility] [id number] Supervisor Plasma: Laura Bull MD, Phone: [phone] PERFORMED BY: [place] [address] PATHOLOGIST MACHINE SORTER KAMLA ARCE M.D. Performed By: #### P AP [id number] #### [facility] , Pap Image Guided Note Normal . [facility] Comment on above: Result Comment: TEST S RESULT FLAG UNITS REF RANGE LAB Clinician Provided Cytology Information No. of containers..01 ThinPrep Vial Age Algo ACOG Renea... 30-65 01 FLAG LEGEND: L-Low Normal,H-High Normal,LL-Alert Low,HH-Alert High <-Panic Low,>-Panic High,A-Abnormal,AA-Critical Abnormal Performed at: 01 =G [facility] [address] [place] [address] Laura Bull MD, Performed By: #### P AP [id number] #### [facility] , Result Comment: TEST S RESULT FLAG UNITS REF RANGE LAB DIAGNOSIS: 02 NEGATIVE FOR INTRAEPITHELIAL LESION OR MALIGNANCY. 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 Specimen adequacy: 02 Satisfactory for evaluation. Endocervical and/or squamous metaplastic cells (endocervical component) are present. Performed by: 02 Leanne Henson, Shoulder Sawyer ([facility]) QC reviewed by: 02 Michelle Hess, Shoulder Sawyer . 02 Note: Note 02 The Pap smear is a screening test designed to aid in the detection of premalignant and malignant conditions of the uterine cervix. It is not a diagnostic procedure and should not be used as the sole means of detecting cervical cancer. Both false-positive and false-negative reports do occur. Test Methodology: Note 02 The Metaresolver(R) Field Coordinator was unable to read this specimen. Therefore a manual review was performed. FLAG LEGEND: L-Low Normal,H-High Normal,LL-Alert Low,HH-Alert High <-Panic Low,>-Panic High,A-Abnormal,AA-Critical Abnormal Performed at: 02 WB [facility] [address] [place] [address] Laura Bull MD, HPV Genotype Reflex Note 02 Criteria not met, HPV Genotype not performed. Criteria not met, HPV Genotype not performed. Basophils Auto (Bld) [#/Vol] on 01-09-2024 Basophils (Bld) [#/Vol] 0.1 10 3/uL 0.0-0.1 [facility] Basophils/100 WBC Auto (Bld) on 01-09-2024 Basophils/100 WBC (Bld) 1.6 % 0.2-2.0 [facility] Cholesterol in LDL Calc [Mas s/Vol]on 01-09-2024 Cholesterol in LDL [Mass/Vol] 109.0 mg/dL [facility] Comment on above: <100 mg/dl [id number] 0-129 mg/dl NEAR OR ABOVE [id number] mg/dl BORDERLINE [id number] mg/dl HIGH>190 mg/dl VERY HIGH Cholesterol in VLDL Calc [Ma ss/Vol]on 01-09-2024 Cholesterol in VLDL [Mass/Vol] 21.8 mg/dL [facility] Eosinophils/100 WBC Auto (Bl d)on 01-09-2024 Eosinophils/100 WBC (Bld) 2.1 % 0.9-7.0 [facility] Erythrocyte distribution wid th Auto (RBC) [Ratio]on 01-09-2024 Erythrocyte distribution width (RBC) [Ratio] 14.5 % 11.0-15.0 [facility] Estimated glomerular filtrat ion rate (GFR) non- Americanon 01-09-2024 GFR/1.73 sq M.predicted among non-blacks MDRD (S/P/Bld) [Vol rate/Area] 57 mL/min/{1.73_m2} >=60 [facility] Globulin Calc (S) [Mass/Vol] on 01-09-2024 Globulin (S) [Mass/Vol] 3.6 g/dL [facility] Glucose mean value [Mass/vol ume] in Blood Estimated from glycated hemoglobinon 01-09-2024 Average glucose Estimated from glycated hemoglobin (Bld) [Mass/Vol] 148 mg/dL [facility] Hematocrit Auto (Bld) [Volum e fraction]on 01-09-2024 Hematocrit (Bld) [Volume fraction] 34.0 % 36.0-48.0 [facility] Hemoglobin [Mass/volume] in Bloodon 01-09-2024 Hemoglobin (Bld) [Mass/Vol] 10.7 g/dL 12.0-16.0 [facility] Laboratory - Chemistry and C hemistry - challengeon 01-09-2024 Albumin [Mass/Vol] 3.8 g/dL 3.4-5.0 [facility] ALP [Catalytic activity/Vol] 41 U/L 46-116 [facility] ALT [Catalytic activity/Vol] 131 U/L 14-59 [facility] AST [Catalytic activity/Vol] 82 U/L 15-37 [facility] Bilirubin [Mass/Vol] 0.6 mg/dL 0.2-1.0 [facility] Calcium [Mass/Vol] 9.2 mg/dL 8.5-10.1 [facility] Chloride [Moles/Vol] 104 mmol/L 98-107 [facility] Cholesterol [Mass/Vol] 166 mg/dL <=200 [facility] Cholesterol in HDL [Mass/Vol] 36 mg/dL 40-60 [facility] Comment on above: > or =60 mg/dl - LOW CARDIOVASCULAR RISK<40 mg/dl - HIGH CARDIOVASCULAR RISK CO2 [Moles/Vol] 28.6 mmol/L 21.0-32.0 [facility] Creatinine [Mass/Vol] 0.98 mg/dL 0.55-1.02 [facility] GFR/1.73 sq M.predicted MDRD (S/P/Bld) [Vol rate/Area] mL/min/{1.73_m2} >=60 [facility] Glucose [Mass/Vol] 173 mg/dL 74-106 [facility] Potassium [Moles/Vol] 3.8 mmol/L 3.5-5.1 [facility] Protein [Mass/Vol] 7.4 g/dL 6.4-8.2 [facility] Sodium [Moles/Vol] 142 mmol/L 136-145 [facility] Triglyceride [Mass/Vol] 109 mg/dL <=150 [facility] Urea nitrogen [Mass/Vol] 27.0 mg/dL 7.0-18.0 [facility] Urea nitrogen/Creatinine [Mass ratio] 27.6 mg/mg [facility] Laboratory - Hematology and Cell countson 01-09-2024 HbA1c (Bld) [Mass fraction] 6.8 % 4.5-6.2 [facility] Comment on above: ADA RECOMMENDED LIMI T 4.0 - 6.0ADA THERAPEUTIC TARGET < 7.0ACTION SUGGESTED> 7.0 Immature granulocytes/100 WBC (Bld) 0.8 % 0.0-0.5 [facility] Leukocytes [#/volume] correc shamar for nucleated erythrocytes in Blood by Automated counon 01-09-2024 WBC corrected for nucl RBC Auto (Bld) [#/Vol] 6.3 10 3/uL 4.0-11.0 [facility] Lymphocytes Auto (Bld) [#/Vo l]on 01-09-2024 Lymphocytes (Bld) [#/Vol] 1.9 10 3/uL 1.2-3.8 [facility] Lymphocytes/100 WBC Auto (Bl d)on 01-09-2024 Lymphocytes/100 WBC (Bld) 30.0 % 20.5-60.0 [facility] MCH Auto (RBC) [Entitic mass ]on 01-09-2024 MCH (RBC) [Entitic mass] 29.0 pg 26.7-34.0 [facility] MCHC Auto (RBC) [Mass/Vol]on 01-09-2024 MCHC (RBC) [Mass/Vol] 31.5 g/dL 29.9-35.2 [facility] MCV Auto (RBC) [Entitic vol] on 01-09-2024 MCV (RBC) [Entitic vol] 92.1 fL 81.0-99.0 [facility] Monocytes Auto (Bld) [#/Vol] on 01-09-2024 Monocytes (Bld) [#/Vol] 0.6 10 3/uL 0.3-0.8 [facility] Monocytes/100 WBC Auto (Bld) on 01-09-2024 Monocytes/100 WBC (Bld) 8.7 % 1.7-12.0 [facility] Neutrophils Auto (Bld) [#/Vo l]on 01-09-2024 Neutrophils (Bld) [#/Vol] 3.6 10 3/uL 1.4-6.5 [facility] Neutrophils/100 WBC Auto (Bl d)on 01-09-2024 Neutrophils/100 WBC (Bld) 56.8 % 43.0-75.0 [facility] No Panel Informationon 01-08 Eosinophils # (Auto) 0.1 10 3/uL 0.0-0.7 [facility] Immature Granulocyte # (Auto) 0.05 10 3/uL 0.00-0.03 [facility] Platelet mean volume Auto (B ld) [Entitic vol]on 01-09-2024 Platelet mean volume (Bld) [Entitic vol] 10.5 fL 9.5-13.5 [facility] Platelets Auto (Bld) [#/Vol] on 01-09-2024 Platelets (Bld) [#/Vol] 227 10 3/uL 150-450 [facility] RBC Auto (Bld) [#/Vol]on RBC (Bld) [#/Vol] 3.69 10 6/uL 4.20-5.40 [facility] Serum or plasma albumin/glob ulin mass ratioon 01-09-2024 Albumin/Globulin [Mass ratio] 1.1 {ratio} [facility] Serum or plasma anion gap de terminationon 01-09-2024 Anion gap [Moles/Vol] 13.2 mmol/L [facility] Serum or plasma total choles terol/high density lipoprotein (HDL) cholesterol mass cris 01-09-2024 Cholesterol.total/Ch olesterol in HDL [Mass ratio] 4.6 {ratio} [facility] Comment on above: 3.3 - 4.4 LOW RISK4. 4 - 7.1 AVERAGE RISK7.1 - 11.0 MODERATE RISK>11.0 HIGH RISK Office Visiton 10-31-2023 Follow-up visit [id number] Kasey Sanchez 1960 F Date Provider Department Center 10/31/2023 PAT BRIDGES [facility] Family History Problem Relation Age of Onset Stroke Mother Hyperlipidemia Mother Aortic aneurysm Father Family Status - Relation Status Age at Mother Father Level of Service:91934 LA OFFICE/OUTPATIENT ESTABLISHED MOD MDM 30 MIN Normal [facility] MG MAMM SCREEN 3D TITI CADon 12-29-2022 MG MAMM SCREEN 3D TITI CAD Patient: KASEY SANCHEZ Exam Date: 12/29/2022 : 1960 Gender:F Ordering : DR SARAH JANSEN M.D. Admission #: [id number] Family : Order #: [id number] CLICK HERE TO VIEW EXAM RADIOLOGY REPORT [...] bone cancer at age 80. LOCATION: [facility] BREAST COMPOSITION: Heterogeneously dense,which may [...] MD on 01/01/2023 at 09:51 Normal [facility] CBC AUTO DIFFon 12-08-2022 BASO # 0.1 103/ul Normal 0.0-0.1 [facility] Comment on above: Performed By: #### C BC #### [facility] [address] [address] [address] Dony Munoz Basophils/100 WBC (Bld) 0.9 % Normal 0.2-2.0 [facility] Comment on above: Performed By: #### C BC #### [facility] [address] [address] [address] Dony Munoz EO # 0.1 103/ul Normal 0.0-0.7 [facility] Comment on above: Performed By: #### C BC #### [facility] [address] [address] [address] Dony Munoz Eosinophils/100 WBC (Bld) 1.9 % Normal 0.9-7.0 [facility] Comment on above: Performed By: #### C BC #### [facility] [address] [address] [address] Dony Munoz Erythrocyte distribution width (RBC) [Ratio] 13.0 % Normal 11.0-15.0 [facility] Comment on above: Performed By: #### C BC #### [facility] [address] [address] [address] Dony Munoz Hematocrit (Bld) [Volume fraction] 35.5 % Critically low 36.0-48.0 [facility] Comment on above: Performed By: #### C BC #### [facility] [address] [address] [address] Dony Munoz Hemoglobin (Bld) [Mass/Vol] 11.7 g/dL Critically low 12.0-16.0 [facility] Comment on above: Performed By: #### C BC #### [facility] [address] [address] [address] Dony Munoz IG # 0.04 10e3/ul Critically high 0.00-0.03 [facility] Comment on above: Performed By: #### C BC #### [facility] [address] [place] [address] Dr. Dony Munoz IG % 0.6 % Critically high 0.0-0.5 [facility] Comment on above: Performed By: #### C BC #### [facility] [address] [place] [address] Dr. Dony Munoz LYMPH # 1.8 103/ul Normal 1.2-3.8 [facility] Comment on above: Performed By: #### C BC #### [facility] [address] [place] [address] Dr. Dony Munoz Lymphocytes/100 WBC (Bld) 27.2 % Normal 20.5-60.0 [facility] Comment on above: Performed By: #### C BC #### [facility] [address] [place] [address] Dr. Dony Munoz MANUAL DIFF REQ NO Normal [facility] Comment on above: Performed By: #### C BC #### [facility] [address] [place] [address] Dr. Dony Munoz MCH (RBC) [Entitic mass] 29.5 pg Normal 26.7-34.0 [facility] Comment on above: Performed By: #### C BC #### [facility] [address] [place] [address] Dr. Dony Munoz MCHC (RBC) [Mass/Vol] 33.0 g/dL Normal 29.9-35.2 [facility] Comment on above: Performed By: #### C BC #### [facility] [address] [place] [address] Dr. Dony Munoz MCV (RBC) [Entitic vol] 89.6 fL Normal 81.0-99.0 [facility] Comment on above: Performed By: #### C BC #### [facility] [address] [place] [address] Dr. Dony Munoz MONO # 0.6 103/ul Normal 0.3-0.8 [facility] Comment on above: Performed By: #### C BC #### [facility] [address] [address] [address] Dony Munoz Monocytes/100 WBC (Bld) 8.3 % Normal 1.7-12.0 [facility] Comment on above: Performed By: #### C BC #### [facility] [address] [address] [address] Dony Munoz NEUT # 4.1 103/ul Normal 1.4-6.5 [facility] Comment on above: Performed By: #### C BC #### [facility] [address] [address] [address] Dony Munoz Neutrophils/100 WBC (Bld) 61.1 % Normal 43.0-75.0 [facility] Comment on above: Performed By: #### C BC #### [facility] [address] [place] [address] Dr. Dony Munoz Platelet mean volume (Bld) [Entitic vol] 9.9 fL Normal 9.5-13.5 [facility] Comment on above: Performed By: #### C BC #### [facility] [address] [place] [address] Dr. Dony Munoz PLT 248 103/ul Normal 150-450 [facility] Comment on above: Performed By: #### C BC #### [facility] [address] [place] [address] Dr. Dony Munoz RBC 3.96 106/ul Critically low 4.20-5.40 [facility] Comment on above: Performed By: #### C BC #### [facility] [address] [place] [address] Dr. Dony Munoz WBC 6.8 103/ul Normal 4.0-11.0 [facility] Comment on above: Performed By: #### C BC #### [facility] [address] [place] [address] Dr. Dony Munoz GLYCOHEMOGLOBIN A1Con 2022 ADA RECOMMENDATION SEE BELOW Normal [facility] Comment on above: Result Comment: ADA RECOMMENDED LIMIT 4.0 - 6.0 ADA THERAPEUTIC TARGET < 7.0 ACTION SUGGESTED > 7.0 Performed By: #### A 1C #### [facility] [address] [address] [address] Dony Munoz Glucose [Mass/Vol] 151 mg/dL Normal [facility] Comment on above: Performed By: #### A 1C #### [facility] [address] [address] [address] Dony Munoz HbA1c (Bld) [Mass fraction] 6.9 % Critically high 4.5-6.2 [facility] Comment on above: Performed By: #### A 1C #### [facility] [address] [place] [address] Dr. Dony Munoz LIPID PROFILEon 12-08-2022 CHOL-HDL RATIO NORM SEE BELOW Normal [facility] Comment on above: Result Comment: 3.3 - 4.4 LOW RISK 4.4 - 7.1 AVERAGE RISK 7.1 - 11.0 MODERATE RISK >11.0 HIGH RISK Performed By: #### C MP, LIPID #### [facility] [address] [place] [address] Dr. Dony Munoz Cholesterol [Mass/Vol] 172 mg/dL Normal <=200 [facility] Comment on above: Performed By: #### C MP, LIPID #### [facility] [address] [place] [address] Dr. Dony Munoz Cholesterol in HDL [Mass/Vol] 47 mg/dL Normal 40-60 [facility] Comment on above: Performed By: #### C MP, LIPID #### [facility] [address] [address] [address] Dony Munoz Cholesterol in LDL [Mass/Vol] 104.2 mg/dL Normal [facility] Comment on above: Performed By: #### C MP, LIPID #### [facility] [address] [place] [address] Dr. Dony Munoz Cholesterol.total/Ch olesterol in HDL [Mass ratio] 3.7 {ratio} Normal [facility] Comment on above: Performed By: #### C MP, LIPID #### [facility] [address] [place] [address] Dr. Dony Munoz HDL NORMAL > or = 60 mg/dl - LO W CARDIOVASCULAR RISK <40 mg/dl - HIGH CARDIOVASCULAR RISK Normal [facility] Comment on above: Performed By: #### C MP, LIPID #### [facility] [address] [address] [address] Dony Munoz LDL CALC NORMAL SEE BELOW Normal [facility] Comment on above: Result Comment: <100 mg/dl OPTIMAL 100 - 129 mg/dl NEAR OR ABOVE OPTIMAL 130 - 159 mg/dl BORDERLINE HIGH 160 - 189 mg/dl HIGH >190 mg/dl VERY HIGH Performed By: #### C MP, LIPID #### [facility] [address] [address] [address] Dony Munoz Triglyceride [Mass/Vol] 104 mg/dL Normal <=150 [facility] Comment on above: Performed By: #### C MP, LIPID #### [facility] [address] [address] [address] Dony Munoz VLDL CALC 20.8 mg/dL Normal [facility] Comment on above: Performed By: #### C MP, LIPID #### [facility] [address] [address] [address] Dony Munoz PROF 14(COMP METB)on 023 Albumin [Mass/Vol] 4.1 g/dL Normal 3.4-5.0 [facility] Comment on above: Performed By: #### C MP, LIPID ####[facility] [address] [id number][address] Dony Munoz Albumin/Globulin [Mass ratio] 1.2 {ratio} Normal [facility] Comment on above: Performed By: #### C MP, LIPID ####[facility] [address] [place], [place] [address]ShAnnabelle Munoz ALP [Catalytic activity/Vol] 58 U/L Normal 46-116 [facility] Comment on above: Performed By: #### C MP, LIPID ####[facility] [address] [id number] Munoz ALT [Catalytic activity/Vol] 125 U/L Critically high 14-59 [facility] Comment on above: Performed By: #### C MP, LIPID ####[facility] [address] [address]Dr. Dony Munoz Anion gap [Moles/Vol] 12.3 mmol/L Normal [facility] Comment on above: Performed By: #### C MP, LIPID ####[facility] [address] [address]Dr. Dony Munoz AST [Catalytic activity/Vol] 75 U/L Critically high 15-37 [facility] Comment on above: Performed By: #### C MP, LIPID ####[facility] [address] [address]Dr. Dony Munoz Bilirubin [Mass/Vol] 0.5 mg/dL Normal 0.2-1.0 [facility] Comment on above: Performed By: #### C MP, LIPID ####[facility] [address] [place], [place] [address]Dr. Dony Munoz Calcium [Mass/Vol] 9.7 mg/dL Normal 8.5-10.1 [facility] Comment on above: Performed By: #### C MP, LIPID ####[facility] [address] [address]Dr. Angekobe Munoz Chloride [Moles/Vol] 105 mmol/L Normal 98-107 [facility] Comment on above: Performed By: #### C MP, LIPID ####[facility] [address] [address]Dr. Dony Munoz CO2 [Moles/Vol] 27.9 mmol/L Normal 21.0-32.[address] [facility] Comment on above: Performed By: #### C MP, LIPID ####[facility] [address] [address]Dr. Dony Alexander Creatinine [Mass/Vol] 0.93 mg/dL Normal 0.55-1.02 [facility] Comment on above: Performed By: #### C MP, LIPID ####[facility] [address] [address]Dr. Dony Munoz EGFR-AF SALVADOREAN >60 Normal >=60 [facility] Comment on above: Performed By: #### C MP, LIPID ####[facility] [address] [id number]. Dony Munoz EGFR-NON AF SALVADOREAN >60 Normal >=60 [facility] Comment on above: Performed By: #### C MP, LIPID ####[facility] [address] [id number]. Dony Munoz Globulin (S) [Mass/Vol] 3.5 g/dL Normal [facility] Comment on above: Performed By: #### C MP, LIPID ####[facility] [address] [address]Dr. Dony Munoz Glucose [Mass/Vol] 163 mg/dL Critically high 74-106 [facility] Comment on above: Performed By: #### C MP, LIPID ####[facility] [address] [address]Dr. Dony Munoz Potassium [Moles/Vol] 4.2 mmol/L Normal 3.5-5.1 [facility] Comment on above: Performed By: #### C MP, LIPID ####[facility] [address] [place], [place] [address]Dr. Dony Munoz Protein [Mass/Vol] 7.6 g/dL Normal 6.4-8.2 [facility] Comment on above: Performed By: #### C MP, LIPID ####[facility] [address] [address]Dr. Dony Munoz Sodium [Moles/Vol] 141 mmol/L Normal 136-145 [facility] Comment on above: Performed By: #### C MP, LIPID ####[facility] [address] [address]Dr. Dony Munoz Urea nitrogen [Mass/Vol] 23.0 mg/dL Critically high 7.0-18.0 [facility] Comment on above: Performed By: #### C MP, LIPID ####[facility] [address] [address]Dr. Dony Munoz Urea nitrogen/Creatinine [Mass ratio] 24.7 mg/mg Normal [facility] Comment on above: Performed By: #### C MP, LIPID ####[facility] [address] [address]Dr. Dony Munoz VIT D 1 25 DIHYDROXYon 07-12 Calcitriol(1,25 di-OH Vit D) 29.6 pg/mL Normal 24.8-81.5 [facility] Comment on above: Performed By: #### V [id number] #### [facility] [address] [address] [address] Dony Munoz CBC AUTO DIFFon 07-10-2022 BASO # 0.1 103/ul Normal 0.0-0.1 [facility] Comment on above: Performed By: #### C BC #### [facility] [address] [address] [address] Dony Munoz Basophils/100 WBC (Bld) 0.7 % Normal 0.2-2.0 [facility] Comment on above: Performed By: #### C BC #### [facility] [address] [address] [address] Dony Munoz EO # 0.2 103/ul Normal 0.0-0.7 [facility] Comment on above: Performed By: #### C BC #### [facility] [address] [address] [address] Dony Munoz Eosinophils/100 WBC (Bld) 2.7 % Normal 0.9-7.0 [facility] Comment on above: Performed By: #### C BC #### [facility] [address] [place] [address] Dr. Dony Munoz Erythrocyte distribution width (RBC) [Ratio] 13.2 % Normal 11.0-15.0 [facility] Comment on above: Performed By: #### C BC #### [facility] [address] [place] [address] Dr. Dony Munoz Hematocrit (Bld) [Volume fraction] 32.3 % Critically low 36.0-48.0 [facility] Comment on above: Performed By: #### C BC #### [facility] [address] [address] [address] Dony Munoz Hemoglobin (Bld) [Mass/Vol] 10.4 g/dL Critically low 12.0-16.0 [facility] Comment on above: Performed By: #### C BC #### [facility] [address] [address] [address] Dony Munoz IG # 0.06 10e3/ul Critically high 0.00-0.03 [facility] Comment on above: Performed By: #### C BC #### [facility] [address] [address] [address] Dony Munoz IG % 0.8 % Critically high 0.0-0.5 [facility] Comment on above: Performed By: #### C BC #### [facility] [address] [place] [address] Dr. Dony Munoz LYMPH # 1.6 103/ul Normal 1.2-3.8 [facility] Comment on above: Performed By: #### C BC #### [facility] [address] [place] [address] Dr. Dony Munoz Lymphocytes/100 WBC (Bld) 21.4 % Normal 20.5-60.0 [facility] Comment on above: Performed By: #### C BC #### [facility] [address] [place] [address] Dr. Dony Munoz MANUAL DIFF REQ NO Normal [facility] Comment on above: Performed By: #### C BC #### [facility] [address] [place] [address] Dr. Dony Munoz MCH (RBC) [Entitic mass] 29.5 pg Normal 26.7-34.0 [facility] Comment on above: Performed By: #### C BC #### [facility] [address] [place] [address] Dr. Dony Munoz MCHC (RBC) [Mass/Vol] 32.2 g/dL Normal 29.9-35.2 [facility] Comment on above: Performed By: #### C BC #### [facility] [address] [place] [address] Dr. Dony Munoz MCV (RBC) [Entitic vol] 91.5 fL Normal 81.0-99.0 [facility] Comment on above: Performed By: #### C BC #### [facility] [address] [place] [address] Dr. Dony Munoz MONO # 0.8 103/ul Normal 0.3-0.8 [facility] Comment on above: Performed By: #### C BC #### [facility] [address] [place] [address] Dr. Dony Munoz Monocytes/100 WBC (Bld) 10.6 % Normal 1.7-12.0 [facility] Comment on above: Performed By: #### C BC #### [facility] [address] [place] [address] Dr. Dony Munoz NEUT # 4.7 103/ul Normal 1.4-6.5 [facility] Comment on above: Performed By: #### C BC #### [facility] [address] [place] [address] Dr. Dony Munoz Neutrophils/100 WBC (Bld) 63.8 % Normal 43.0-75.0 [facility] Comment on above: Performed By: #### C BC #### [facility] [address] [place] [address] Dr. Dony Munoz Platelet mean volume (Bld) [Entitic vol] 10.0 fL Normal 9.5-13.5 [facility] Comment on above: Performed By: #### C BC #### [facility] [address] [place] [address] Dr. Dony Munoz PLT 244 103/ul Normal 150-450 [facility] Comment on above: Performed By: #### C BC #### [facility] [address] [place], [place] [id number] Dr. Dony Munoz RBC 3.53 106/ul Critically low 4.20-5.40 [facility] Comment on above: Performed By: #### C BC #### [facility] [address] [place] [address] Dr. Dony Munoz WBC 7.3 103/ul Normal 4.0-11.0 [facility] Comment on above: Performed By: #### C BC #### [facility] [address] [place] [address] Dr. Dony Munoz FERRITINon 07-10-2022 Ferritin [Mass/Vol] 178.0 ng/mL Normal 8.0-252.0 [facility] Comment on above: Performed By: #### F ERR #### [facility] [address] [place] [address] Dr. Dony Munoz GLYCOHEMOGLOBIN A1Con 2021 ADA RECOMMENDATION SEE BELOW Normal [facility] Comment on above: Result Comment: ADA RECOMMENDED LIMIT 4.0 - 6.0 ADA THERAPEUTIC TARGET < 7.0 ACTION SUGGESTED > 7.0 Performed By: #### A 1C #### [facility] [address] [place] [address] Dr. Dony Munoz Glucose [Mass/Vol] 140 mg/dL Normal [facility] Comment on above: Performed By: #### A 1C #### [facility] [address] [place] [address] Dr. Dony Munoz HbA1c (Bld) [Mass fraction] 6.5 % Critically high 4.5-6.2 [facility] Comment on above: Performed By: #### A 1C #### [facility] [address] [place] [address] Dr. Dony Munoz LIPID PROFILEon 07-10-2022 CHOL-HDL RATIO NORM SEE BELOW Normal [facility] Comment on above: Result Comment: 3.3 - 4.4 LOW RISK 4.4 - 7.1 AVERAGE RISK 7.1 - 11.0 MODERATE RISK >11.0 HIGH RISK Performed By: #### L IPID #### [facility] [address] [place] [address] Dr. Dony Munoz Cholesterol [Mass/Vol] 174 mg/dL Normal <=200 [facility] Comment on above: Performed By: #### L IPID #### [facility] [address] [place] [address] Dr. Dony Munoz Cholesterol in HDL [Mass/Vol] 47 mg/dL Normal 40-60 [facility] Comment on above: Performed By: #### L IPID #### [facility] [address] [address] [address] Dony Munoz Cholesterol in LDL [Mass/Vol] 104.4 mg/dL Normal [facility] Comment on above: Performed By: #### L IPID #### [facility] [address] [address] [address] Dony Munoz Cholesterol.total/Ch olesterol in HDL [Mass ratio] 3.7 {ratio} Normal [facility] Comment on above: Performed By: #### L IPID #### [facility] [address] [place] [address] Dr. Dony Munoz HDL NORMAL > or = 60 mg/dl - LO W CARDIOVASCULAR RISK <40 mg/dl - HIGH CARDIOVASCULAR RISK Normal [facility] Comment on above: Performed By: #### L IPID #### [facility] [address] [place] [address] Dr. Dony Munoz LDL CALC NORMAL SEE BELOW Normal [facility] Comment on above: Result Comment: <100 mg/dl OPTIMAL 100 - 129 mg/dl NEAR OR ABOVE OPTIMAL 130 - 159 mg/dl BORDERLINE HIGH 160 - 189 mg/dl HIGH >190 mg/dl VERY HIGH Performed By: #### L IPID #### [facility] [address] [place] [address] Dr. Dony Munoz Triglyceride [Mass/Vol] 113 mg/dL Normal <=150 [facility] Comment on above: Performed By: #### L IPID #### [facility] [address] [place] [address] Dr. Dony Munoz VLDL CALC 22.6 mg/dL Normal [facility] Comment on above: Performed By: #### L IPID #### [facility] [address] [place] [address] Dr. Dony Munoz XR KUB 1 VIEWon [...] by: NIDHI BOGGS Date: 2022-07-10 07:01 Normal [facility] Vital Signs Date Time Vital Sign Value Performing Clinician Facility 12-25-2024 15:16-0400 Body height 162.56 cm [facility] 12-25-2024 15:16-0400 Body mass index (BMI) [Ratio] 26.8 kg/m2 [facility] 12-25-2024 15:16-0400 Body weight 70.9 kg [facility] 12-25-2024 15:16-0400 Diastolic blood pressure 79 mm[Hg] [facility] 12-25-2024 15:16-0400 Heart rate 47 /min [facility] 12-25-2024 15:16-0400 Respiratory rate 18 /min [facility] 12-25-2024 15:16-0400 SaO2% (BldA) [Mass fraction] 97 % [facility] 12-25-2024 15:16-0400 Systolic blood pressure 157 mm[Hg] [facility] 11-25-2024 08:32-0400 Body height 162.56 cm [facility] 11-25-2024 08:32-0400 Body mass index (BMI) [Ratio] 27.3 kg/m2 [facility] 11-25-2024 08:32-0400 Body weight 72.12 kg [facility] 11-25-2024 08:32-0400 Diastolic blood pressure 74 mm[Hg] [facility] 11-25-2024 08:32-0400 Heart rate 46 /min [facility] 11-25-2024 08:32-0400 Systolic blood pressure 144 mm[Hg] [facility] 01-18-2024 08:32-0400 Body height 162.56 cm [facility] 01-18-2024 08:32-0400 Body mass index (BMI) [Ratio] 26.9 kg/m2 [facility] 01-18-2024 08:32-0400 Body weight 71.27 kg [facility] 01-18-2024 08:32-0400 Diastolic blood pressure 73 mm[Hg] [facility] 01-18-2024 08:32-0400 Heart rate 50 /min [facility] 01-18-2024 08:32-0400 Systolic blood pressure 143 mm[Hg] [facility] 12-18-2023 15:34-0400 Body height 162.56 cm [facility] 12-18-2023 15:34-0400 Body mass index (BMI) [Ratio] 26.9 kg/m2 [facility] 12-18-2023 15:34-0400 Body weight 71.21 kg [facility] 12-18-2023 15:34-0400 Diastolic blood pressure 69 mm[Hg] [facility] 12-18-2023 15:34-0400 Heart rate 50 /min [facility] 12-18-2023 15:34-0400 Systolic blood pressure 159 mm[Hg] [facility] 08-21-2023 15:45-0500 Body height 162.56 cm Sarah Jansen Other [facility] Other 08-21-2023 15:45-0500 Body mass index (BMI) [Ratio] 27.7 kg/m2 Sarah Jansen Other [facility] Other 08-21-2023 15:45-0500 Body weight 73.21 kg Sarah Jansen Other [facility] Other 08-21-2023 15:45-0500 Diastolic blood pressure 77 mm[Hg] Sarah Jansen Other [facility] Other 08-21-2023 15:45-0500 Systolic blood pressure 143 mm[Hg] Sarah Jansen Other [facility] 12-04-2022 16:30-0400 Body height 162.56 cm Sarah Jansen Other [facility] 12-04-2022 16:30-0400 Body mass index (BMI) [Ratio] 27.46 kg/m2 Sarah Jansen Other [facility] 12-04-2022 16:30-0400 Body weight 72.58 kg Sarah Jansen Other [facility] 12-04-2022 16:30-0400 Diastolic blood pressure 82 mm[Hg] Sarah Jansen Other [facility] 12-04-2022 16:30-0400 SaO2% (BldA) [Mass fraction] 98 % Sarah Jansen Other [facility] Other 12-04-2022 16:30-0400 Systolic blood pressure 120 mm[Hg] Sarah Jansen Other [facility] Other Encounters Encounter Date Encounter Type Care Provider Facility Start: 12-25-2024 End: 12-25-2024 ambulatory [facility] Work Phone: Start: 12-25-2024 End: 12-25-2024 Patient encounter procedure [facility] Work Phone: Start: 12-04-2024 [facility] Start: 11-25-2024 End: 11-25-2024 ambulatory [facility] Work Phone: Start: 11-25-2024 End: 11-25-2024 Encounter for general adult medical examination without abnormal findings [facility] Start: 11-25-2024 End: 11-25-2024 Patient encounter procedure [facility] Work Phone: Start: 10-16-2024 End: 10-17-2024 ambulatory [facility] Start: 06-18-2024 End: 06-18-2024 ambulatory MD Sarah Jansen Work Phone: [facility] Work Phone: Start: 06-18-2024 End: 06-18-2024 Departed Referred MD Sarah Jansen Work Phone: [facility] Start: 01-30-2024 End: 01-30-2024 ambulatory [facility] Start: 01-18-2024 Patient encounter status MD Sarah Jansen Work Phone: [facility] Start: 01-18-2024 End: 01-18-2024 Departed Referred MD Sarah Jansen Work Phone: [facility] [employer] Work Phone: Start: 01-18-2024 End: 01-18-2024 ambulatory MD Sarah Jansen Work Phone: [facility] Work Phone: Start: 01-18-2024 End: 01-18-2024 Encounter for general adult medical examination without abnormal findings MD Sarah Jansen Work Phone: [facility] Start: 01-18-2024 End: 01-18-2024 Patient encounter procedure [facility] Work Phone: Start: 01-09-2024 Non-patient / Non-visit [facility] Work Phone: Start: 12-18-2023 End: 12-18-2023 ambulatory [facility] Work Phone: Start: 12-18-2023 End: 12-18-2023 Patient encounter procedure [facility] Work Phone: Start: 11-30-2023 End: 11-30-2023 ambulatory Sarah Inderjit Other [facility] Other Start: 11-30-2023 Telephone encounter Sarah Inderjit [facility] Start: 11-30-2023 Non-patient / Non-visit [facility] Work Phone: Start: 10-31-2023 ambulatory PAT JENNA [facility] Start: 09-24-2023 End: 09-24-2023 ambulatory Sarah Inderjit Other [facility] Other Start: 09-24-2023 Telephone encounter Sarah Inderjit [facility] Start: 09-20-2023 Patient encounter procedure [facility] Start: 09-19-2023 End: 09-19-2023 ambulatory Eliza Galan Other [employer] Other Start: 09-19-2023 Office outpatient vi sit 15 minutes Eliza Galan [facility] Start: 09-18-2023 End: 09-18-2023 ambulatory Sarah Jansen Other [facility] Other Start: 09-18-2023 Telephone encounter Sarah Jansen [facility] Start: 09-13-2023 End: 09-13-2023 ambulatory Sarah Inderjit Other [facility] Other Start: 09-13-2023 Telephone encounter Sarah Jansen [facility] Start: 09-12-2023 End: 09-12-2023 ambulatory Sarah Inderjit Other [facility] Other Start: 09-12-2023 Telephone encounter Sarah Jansen [facility] Start: 08-21-2023 End: 08-21-2023 ambulatory Sarah Jansen Other [facility] Other Start: 08-21-2023 Office outpatient vi sit 25 minutes Sarah Jansen [facility] Start: 07-24-2023 End: 07-24-2023 ambulatory Sarah Jansen Other [facility] Other Start: 07-24-2023 Telephone encounter Sarah Jansen [facility] Start: 12-29-2022 End: 12-30-2022 ambulatory JEWELL FARMER Facility:[facility] Start: 12-10-2022 Encounter for genera l adult medical examination without abnormal findings DR SARAH JANSEN [facility] Start: 12-08-2022 Telephone encounter Sarah Jansen [facility] Start: 12-08-2022 End: 12-09-[address] SARAH JANSEN [facility] Other Start: 12-08-2022 End: 12-09-2022 Encounter for general adult medical examination without abnormal findings DR SARAH JANSEN Facility:[facility] Start: 12-04-2022 End: 12-04-2022 Departed Referred MD Sarah Jansen Work Phone: [facility] [employer] Work Phone: Start: 12-04-2022 End: 12-04-2022 ambulatory MD Sarah Jansen Work Phone: [facility] Work Phone: Start: 12-04-2022 Encounter for genera l adult medical examination without abnormal findings Sarah Jansen [facility] Start: 12-04-2022 Periodic preventive med est patient 40-64yrs Sarah Jansen [facility] Start: 07-10-2022 End: 07-11-[address] SARAH JANSEN Facility:[facility] Start: 07-07-2022 End: 07-08-[address] SARAH JANSEN Facility:[facility] Start: 07-07-[address] SARAH JANSEN Facil ity:[facility] Start: 12-15-2021 Adult health examination Sarah Jansen Other [employer] Other Start: 08-19-2018 End: 08-20-2018 Patient encounter procedure DEFAULT PHYSICIAN Facility:[facility] Start: 07-22-2018 End: 07-23-2018 Patient encounter procedure DEFAULT PHYSICIAN Facility:[facility] Procedures Date Procedure Procedure Detail Performing Clinician Start: 07-15-2015 Screening mammography M natanael Jansen Other Start: 07-14-2014 History and physical examination, administrative Sarah Jansen Other Screening for malign ant neoplasm of breast Sarah Inderjit Other Plan of Treatment Date Care Activity Detail Author Start: 12-25-2024 Patient referral [facility] Work Phone: Start: 06-18-2024 [facility] Start: 01-18-2024 [facility] Start: 12-04-2022 [facility] Comprehensive metabo lic 1999 panel - Serum or Plasma [facility] Comprehensive metabo lic 1999 panel - Serum or Plasma [facility] Comprehensive metabo lic 1999 panel - Serum or Plasma [facility] Human papilloma viru s 16+18+31+33+35+39+45+51+52+ 56+58+59+66+68 DNA [Presence] in Cervix by Probe with signal amplification [facility] Insulin C-peptide measurement [facility] MG Breast - bilatera l Screening [facility] MG Breast - bilatera l Screening [facility] Patient Education Diabetes and diet [facility] Work Phone: Patient referral [facility] Work Phone: [facility] Immunizations Immunization Date Immunization Notes Care Provider Fa cility 05-13-2021 COVID-19 Vaccine Pfi zer - Documentation Purposes Only Sarah Jansen Other [facility] Payers Date Payer Category Payer Unknown [id number] 2024 Self-pay 1960 Unknown [id number] [id number] [id number] 1960 Unknown [id number] 2.16.8 [id number] 1960 Unknown [id number] 2.16.84 [id number] 1960 Unknown [id number] 2.16.84 [id number] 1960 Unknown [id number] 2.16.84 [id number] 1960 Unknown [id number] 2.16.84 [id number] 1960 Unknown [id number] 2.16.84 [id number] 1959 Private Health Insurance EBM [id number] Unknown Unknown [id number] 2.16.8 [id number] Unknown [id number] 2.16.8 [id number] Social History Date Type Detail Facility Tobacco smoking status [facility] Unknown if ever smoked [facility] Work Phone: Start: 1960 Sex Assigned At Female F [facility] Sex Assigned At Sex Assigned At Bir th [facility] [employer] Other Start: 10-09-2018 End: 12-25-2024 Tobacco smoking status RIIS Never smoked tobacco (finding) [facility] Start: 11-25-2024 End: 12-26-2024 Sex Female (finding) [facility] Medical Equipment Procedure Code Equipment Code Equipment [...] strip Start: 09-18-2024 Lancets (Microle t Lancet) [facility] Start: 09-22-2024 Blood Sugar Diagnostic (Blood Glucose Test) strip Start: 11-30-2023 End: 05-15-2024 Blood Sugar Diagnostic (Contour Next Test Strips) strip Start: 05-15-2024 End: 09-18-2024 Lancets (Microle t Lancet) [facility] Start: 09-22-2024 Blood Sugar Diagnostic (Blood Glucose Test) strip Start: 11-30-2023 End: 05-15-2024 Blood Sugar Diagnostic (Contour Next Test Strips) strip Start: 05-15-2024 End: 09-18-2024 Blood Sugar Diagnostic (Contour Next Test Strips) strip Start: 09-18-2024 End: 11-25-2024 Blood Sugar Diagnostic (Onetouch Verio Test Strips) strip Start: 11-25-2024 End: 12-25-2024 Clinical Notes 10-30-2014 to 10-16-2024 Note Date & Type Note Facility 10-16-2024 Note [facility] Subjective Kasey Sanchez is a 63 [...] valvular dysfunction Mi (more content not included)... [facility] 01-30-2024 Note [facility] Card[facility] Clinic Note Chief Complaint: Patient [...] had no symp (more content not included)... [facility] 10-31-2023 Note Continue lipitor and tricor- pt to have repeat annual labs with PCP next month [facility] 10-31-2023 Note Hypertension is well controlled at home- this morning B/P was 106/60 Continue losartan [facility] 10-31-2023 Note Currently stable and asymptomati c [facility] 10-31-2023 Note Resolved [facility] 10-31-2023 Note [facility] C[facility]Y [facility]GR [...] office for lightheadedness/dizzine (more content not included)... [facility] 10-31-2023 Note Patient here for [...] All other systems reviewed and are negative. [facility] 09-19-2023 Evaluation note Encounter Date [...] in visit was myself, Eliza Galan DNP, DAY CARE AIDE, BURR BENCH OPERATOR (provider) and Miriam Simpson, who was the roomer in asking patient pre-visit questions per virtual visit platform. Time spent with patient was approximately 10 minutes. [facility] Other 12-28-2023 Evaluation note* Encounter Date Diagnosis Assessment Notes Treatment Notes Treatment Clinical Notes Aug, Anxiety (ICD-10 - F41.9) [facility] Other 12-05-2023 Evaluation note* Encounter Date Diagnosis [...] deficiency (ICD-10 - E55.9) Due for labs [facility] Other 03-20-2023 Evaluation note* Encounter Date Diagnosis [...] check a1C Nov, Fatigue (ICD-10 - R53.83) [facility] Other 02-13-2015 Evaluation note* Diagnosis Onset Date Resolution Status Essential (primary) hypertension October 30, 2014 acute Type 2 diabetes mellitus with hyperglycemia acute [facility] Work Phone: 1(484) 249-280002-13-2015 Evaluation note* Diagnosis Onset Date Resolution Status Essential (primary) hypertension October 30, 2014 acute Type 2 diabetes mellitus with hyperglycemia acute Essential (primary) hypertension October 30, 2014 acute Type 2 diabetes mellitus with hyperglycemia acute Wellness examination acute [facility] Work Phone: 1(228) 587-431102-13-2015 Evaluation note* Diagnosis Onset Date Resolution Status Admit Date Essential (primary) hypertension October 30, 2014 acute November 25, 2024 8:27am SAINI (nonalcoholic steatohepatitis) acute November 25 8:27am Screening mammogram for breast cancer acute November 25, 2024 8:27am Type 2 diabetes mellitus with hyperglycemia acute November 25 025 8:27am Vitamin D deficiency acute Adan h 2024 8:27am Wellness examination acute [facility] 2024 8:27am [facility] Work Phone: 1(403) 285-322902-13-2015 Evaluation note* Diagnosis Onset Date Resolution Status Admit Date Essential (primary) hypertension October 30, 2014 acute November 25, 2024 8:27am Gastritis acute November 25 8:27am SAINI (nonalcoholic steatohepatitis) acute November 25 8:27am Screening mammogram for breast cancer acute November 25, 2024 8:27am Type 2 diabetes mellitus with hyperglycemia acute November 25, 2 025 8:27am Vitamin D deficiency acute Adan h 2024 8:27am Wellness examination acute [facility] 2024 8:27am BMI 26.0-26.9,adult acute December 25, 2024 2:49pm Dietary counseling and surveillance acute December 25, 2024 2:49pm Essential (primary) hypertension October 30, 2014 acute December 25, 2024 2:49pm Mixed hyperlipidemia acute [facility] 2024 2:49pm SAINI (nonalcoholic steatohepatitis) acute December 25 2:49pm Type 2 diabetes mellitus with hyperglycemia acute December 25 2 025 2:49pm [facility] Work Phone: Evaluation noteNo assessment information available [facility] Work Phone: Evaluation noteNo InformationNorth Lenda Other History general Narrative - Reported* Type [...] Surgical History tonsillectomy Surgical History colonoscopy done [address] Pete kenyon Surgical History Gallbladder 08/07/2018 Hospitalization History SEE SURGICAL HX [facility] [employer] Other Hospital Discharge instructionsAmbulatory Orders* Referral to Diabetes Education Location: None [facility] Work Phone: Summary Purpose Family History Relationship Condition Age at Onset Recorded Date/T toni father Unknown Advance Directives Advance Directive Response Recorded Date/ Time Advance Directives No December 07 023 2:36pm Chief Complaint and Reason for [...] 2024 8:27am Screening mammogram for breast cancer [facility] 2024 8:27am Type 2 diabetes mellitus with hyperglyce davy November 25, 2024 8:27am Vitamin D deficiency November 25, 2024 8: 27am Wellness examination November 25, 2024 8: 27am Chief Complaint Admit Date Wellness November 25, 2024 8:2 7am Rosmery Jansen December 25, 2024 2:4 9pm Reason for Visit Admit Date Essential (primary) hypertension November 152024 8:27am Gastritis November 25, 2024 8:2 7am SAINI (nonalcoholic steatohepatitis) Adan h 2024 8:27am Screening mammogram for breast cancer [facility] 2024 8:27am Type 2 diabetes mellitus with hyperglyce davy November 25, 2024 8:27am Vitamin D deficiency November 25, 2024 8: 27am Wellness examination November 25, 2024 8: 27am BMI 26.0-26.9,adult December 25, 2024 2:4 9pm Dietary counseling and surveillance [facility] 2024 2:49pm Essential (primary) hypertension December 162024 2:49pm Mixed hyperlipidemia December 25, 2024 2: 49pm SAINI (nonalcoholic steatohepatitis) [facility] 2024 2:49pm Type 2 diabetes mellitus with hyperglyce davy December 25, 2024 2:49pm Additional Source Comments INFORMATION SOURCE (unrecogn ized section and content) DATE CREATED AUTHOR 08/25/2018 [facility] DATE CREATED AUTHOR AUTHOR'S ORGANIZ ATION 01/04/2023 [facility] DATE CREATED AUTHOR AUTHOR'S ORGANIZ ATION 06/25/2024 [facility] DATE CREATED AUTHOR AUTHOR'S ORGANIZ ATION 10/18/2024 [facility] Care Teams (unrecognized sec tion [...] November 25, 2024 End: November 25, 2024 Team Status: Active Member Role Status Dates Sarah Jansen MD Primary Care Provide r, Attending Provider Active Start: December 04, 2024 Team Status: Inactive Member Role Status Dates Sarah Jansen MD Primary Care Provider Active Start: December 25, 2024 End: December 25, 2024 Elke Diaz APRN Attending Provider Active Start: December 25, 2024 End: December 25, 2024 Goals (unrecognized section and content) [...] BE BASED ON THE PRIMARY CLINICAL RECORDS. [employer] provides no warranty or guarantee of the accuracy or completeness of information in this document.
--- NOTE | 2024-12-31 08:08 | MM_ITS ---
Patient Name: GEOVANI HEARD MR#: [id number] : 1960 Exam Date: 12/31/2024 Ordering Doctor: DR Sarah Orosco M.D. RADIOLOGY REPORT PROCEDURE: MM TOMOSYNTHESIS SCREENING BI COMPARISON: MM TOMOSYNTHESIS SCREENING BI, 01/09/2024. MG MAMM SCREEN 3D TITI CAD, 12/29/2022. MG MAMM SCREEN 3D TITI CAD, 12/26/2021. MG MAMM TITI SCRN W CAD DIG, 02/06/2013. INDICATIONS: Screening Calculator Name NCI Breast Cancer Risk Assessment Tool 5 Year Breast Cancer Risk 2.20% Lifetime Breast Cancer Risk 8.90% Personal Breast Cancer No Personal Ovarian Cancer No Treatments None Family Cancers Mother with colon cancer at age 90; Aunt-maternal with esohagus cancer at age 86; Father with bone cancer at age 72; Uncle-paternal with bone cancer at age 80. LOCATION: [facility] BREAST COMPOSITION: The breasts are heterogeneously dense,which may obscure small masses. FINDINGS: DIAGNOSTIC CATEGORY 1--NEGATIVE. RIGHT BREAST: No significant suspicious finding. LEFT BREAST: No significant suspicious finding. RECOMMENDATIONS: ROUTINE MAMMOGRAM AND CLINICAL EVALUATION IN 12 MONTHS. PLEASE NOTE: A NORMAL MAMMOGRAM DOES NOT EXCLUDE THE POSSIBILITY OF BREAST CANCER. A CLINICALLY SUSPICIOUS PALPABLE LUMP SHOULD BE BIOPSIED. Dictated by: Ulisses Sprague DO on 12/31/2024 at 14:08 Approved by: Ulisses Sprague DO on 12/31/2024 at 14:10
== END 2024-12-31 07:53 | disposition home or self-care (01) ==
LOC: MAMMO 07:52
PROVIDERS: PCP Family Medicine; Visit Provider Family Medicine
DX: Z12.31 Encounter for screening mammogram for malignant neoplasm of breast (principal); Z80.0 Family history of malignant neoplasm of digestive organs; Z80.8 Family history of malignant neoplasm of other organs or systems
CPT/HCPCS: 77063; 77067

== ENCOUNTER 2025-01-13 07:43 | Outpatient (OUT) | payer BC, SELFPAY ==
[2025-01-13 09:01] LABS: Anion Gap 11.1; BUN Creatinine Ratio 33.3; Carbon Dioxide 30.5 mmol/L (21.0-32.0); Chloride 105 mmol/L (98-107); Estimated GFR (African America >60 (>=60 mL/min/1.73m^2); Estimated GFR (Non-African Ame 59 (>=60 mL/min/1.73m^2); Glucose 150 mg/dL (74-106); Potassium 3.6 mmol/L (3.5-5.1); Sodium 143 mmol/L (136-145)
[2025-01-13 09:02] LABS: Alanine Aminotransferase 121 U/L (14-59); Albumin Globulin Ratio 1.1; Albumin Level 3.6 g/dL (3.4-5.0); Alkaline Phosphatase 68 U/L (46-116); Aspartate Amino Transferase 79 U/L (15-37); Bilirubin Total 0.4 mg/dL (0.2-1.0); Calcium 9.3 mg/dL (8.5-10.1); Cholesterol 147 mg/dL (<=200); Globulin 3.4 g/dL; HDL Cholesterol 44 mg/dL (40-60); Triglycerides 135 mg/dL (<=150)
[2025-01-13 09:03] LABS: Chol HDL Ratio 3.3; TSH W/ REFLEX FT4 1.726 uIU/mL (0.358-3.740)
[2025-01-14 03:12] LABS: Vitamin B12 608 pg/mL (232-1245)
== END 2025-01-13 07:44 | disposition home or self-care (01) ==
LOC: LAB 07:43
PROVIDERS: PCP Family Medicine
DX: E78.5 Hyperlipidemia, unspecified (principal); E11.65 Type 2 diabetes mellitus with hyperglycemia; E53.8 Deficiency of other specified B group vitamins
CPT/HCPCS: 36415; 80053; 80061; 82607; 84443; 84681; 86337; 86341